=== PATIENT | male | born 1945 | race Caucasian/White ===

== ENCOUNTER 2017-05-23 15:24 | Inpatient (IN) | payer MEDICARE ==
--- NOTE | 2017-05-23 16:02 | ED PDOC ---
HPI: Back Time Seen by Provider: 05/23/17 15:48 Chief Complaint (Nursing): Back Pain Chief Complaint (Provider): Back Pain History Per: Patient History/Exam Limitations: no limitations Onset/Duration Of Symptoms: Days (x3) Current Symptoms Are (Timing): Still Present Additional Complaint(s): Peng is a 71 y/o male with a past medical history of diabetes, who presents to the ED complaining of bilateral low back pain, radiating to both legs since . No fever, urinary symptoms, weakness or paresthesias. Denies associated trauma or heavy lifting. PMD: Tatiana Cabello Past Medical History Reviewed: Historical Data, Nursing Documentation, Vital Signs Vital Signs: Last Vital Signs Temp 97.7 F 05/23/17 15:28 Pulse 90 05/23/17 15:28 Resp 18 05/23/17 15:28 BP 101/50 L 05/23/17 15:28 Pulse Ox 98 05/23/17 15:28 - Medical History PMH: Arthritis, Diabetes, HTN, Hypercholesterolemia Denies: Chronic Kidney Disease - Surgical History Surgical History: No Surg Hx - Family History Family History: States: Unknown Family Hx - Social History Current smoker - smoking cessation education provided: No Alcohol: None Drugs: Denies - Immunization History Hx Tetanus Toxoid Vaccination: No Hx Influenza Vaccination: Yes Hx Pneumococcal Vaccination: No - Home Medications Home Medications: Ambulatory Orders Medication Instructions Recorded Lisinopril [Zestril] 20 mg PO DAILY 05/23/17 Metformin HCl [Metformin HCl ER] 1,000 mg PO BID 05/23/17 - Allergies Allergies/Adverse Reactions: Allergies Allergy/AdvReac Type Severity Reaction Status Date / Time No Known Allergies Allergy Verified 09/22/15 19:52 Review of Systems ROS Statement: Except As Marked, All Systems Reviewed And Found Negative Constitutional: Negative for: Fever Genitourinary Male: Negative for: Dysuria, Frequency, Incontinence Musculoskeletal: Positive for: Back Pain (bilateral lower, radiating to both legs) Neurological: Negative for: Weakness, Other (paresthesias) Physical Exam - Reviewed Nursing Documentation Reviewed: Yes Vital Signs Reviewed: Yes - Physical Exam Appears: Positive for: Non-toxic, No Acute Distress Head Exam: Positive for: ATRAUMATIC, NORMAL INSPECTION, NORMOCEPHALIC Skin: Positive for: Normal Color, Warm, Dry Eye Exam: Positive for: EOMI, Normal appearance, PERRL Neck: Positive for: Normal, Painless ROM, Supple Cardiovascular/Chest: Positive for: Regular Rate, Rhythm. Negative for: Murmur Respiratory: Positive for: Normal Breath Sounds. Negative for: Respiratory Distress Back: Positive for: Muscle Spasm (bilateral paralumbar spasm and tenderness). Negative for: Vertebral Tenderness, Other (deformity) Extremity: Positive for: Normal ROM. Negative for: Calf Tenderness, Deformity Neurologic/Psych: Positive for: Alert (awake), Oriented. Negative for: Motor/ Sensory Deficits (of lower extremities) - Laboratory Results Result Diagrams: 05/23/17 17:21 - ECG O2 Sat by Pulse Oximetry: 98 (RA) Pulse Ox Interpretation: Normal Medical Decision Making Medical Decision Making: Time: 15:53 Initial Plan: --POC blood glucose --Flexeril 10 mg PO --Toradol 30 mg IM --X-Ray LS Spine AP/LAT --Pending reevaluation and disposition Time: 16:24 X-RAY LS SPINE: FINDINGS: BONES: Mild scoliosis without appreciable degenerative for secondary changes. No listhesis. No fracture. DISC SPACES: Unremarkable. OTHER FINDINGS: Calcified nonaneurysmal abdominal aorta. Gallstones identified. IMPRESSION: No acute findings related to/accounting for the clinical presentation. Scribe Attestation: Documented by Loretta Joseph, acting as a scribe for Zak Marroquin MD Provider Scribe Attestation: All medical record entries made by the Scribe were at my direction and personally dictated by me. I have reviewed the chart and agree that the record accurately reflects my personal performance of the history, physical exam, medical decision making, and the department course for this patient. I have also personally directed, reviewed, and agree with the discharge instructions and disposition. Disposition - Clinical Impression Clinical Impression: Back pain, Hypoglycemia, Anemia - Patient ED Disposition Is Patient to be Admitted: Yes - Disposition Disposition Time: 17:37 Condition: FAIR Forms: [facility] (Greek) - Pt Status Changed To: Hospital Disposition Of: Observation - POA Present On Arrival: None
--- NOTE | 2017-05-23 16:25 | RAD ---
PROCEDURE: Radiographs of the Lumbar Spine. HISTORY: trauma r/o fx COMPARISON: No prior. FINDINGS: BONES: Mild scoliosis without appreciable degenerative for secondary changes. No listhesis. No fracture. DISC SPACES: Unremarkable. OTHER FINDINGS: Calcified nonaneurysmal abdominal aorta. Gallstones identified. IMPRESSION: No acute findings related to/accounting for the clinical presentation.
[2017-05-23] MEDS ORDERED: Dextrose 50% SYRINGE Inj (50 ml) IVP ONE ×2 (17:12→18:02)
[2017-05-23 17:29] LABS: BASO % 0.3 % (0.0-2.0); EOS % 0.2 % (0.0-4.0); HEMATOCRIT 25.3 % (35.0-51.0); LYMPH # 3.7 K/uL (1.0-4.3); LYMPH % 32.3 % (20.0-40.0); MEAN CELL VOLUME 99.9 fl (80.0-94.0); MEAN CORPUSCULAR HEMOGLOBIN 32.8 pg (27.0-31.0); MEAN CORPUSCULAR HGB CONC 32.8 g/dL (33.0-37.0); MEAN PLATELET VOLUME 11.6 fl (7.2-11.7); MONO # 0.9 K/uL (0.0-0.8); MONO % 7.4 % (0.0-10.0); NEUT # 6.9 K/uL (1.8-7.0); NEUT % 59.8 % (50.0-75.0); RED CELL DISTRIBUTION WIDTH 13.4 % (11.5-14.5); WHITE BLOOD COUNT 11.6 K/uL (4.8-10.8)
[2017-05-23 17:39] LABS: ALB/GLOB RATIO 1.3 (1.0-2.1); BILIRUBIN,TOTAL 0.5 mg/dl (0.2-1.3); CALCIUM 8.9 mg/dL (8.4-10.2); TOTAL PROTEIN 6.9 G/DL (6.3-8.2)
[2017-05-23] MEDS ORDERED: Insulin Regular 100 units/ml IV STA (18:01)
[2017-05-23 18:02] LABS: POTASSIUM 7.6 MMOL/L (3.6-5.0)
[2017-05-23] MEDS ORDERED: Albuterol 0.083% Inhal Sol (2.5 mg/3 mL) UD INH STA (18:02)
[2017-05-23] MEDS ORDERED: Sodium Bicarbonate 7.5% (0.9 MEQ/ML) 50ML INJ IV ONE ×2 (18:02→18:16)
[2017-05-23] MEDS ORDERED: Sod Polystyrene Sulf 15 gm/60 ml Oral Susp PO ONE (18:03)
[2017-05-23] MEDS ORDERED: Calcium Gluconate 4.65 mEq/10 ml Inj IV ONE (18:17)
[2017-05-23] MEDS ORDERED: WATER IV SCH (18:21)
[2017-05-23] MEDS ORDERED: DEXTROSE 5% IV SCH (18:21)
[2017-05-23] MEDS ORDERED: SODIUM BICARBONATE IV SCH (18:21)
[2017-05-23 18:33] LABS: CALCIUM 8.7 mg/dL (8.4-10.2)
--- NOTE | 2017-05-23 18:41 | CP.PCM.HP ---
History of Present Illness - History of Present Illness History of Present Illness: 71 yo male with history of DM2, HTN and Gout came in because of back pain and leg pain since 3 days ago accompanied with generalized weakness and uncontrollable tremors. Denied SOB, chest pain, fever or chills. Present on Admission - Present on Admission Any Indicators Present on Admission: No History of DVT/PE: No History of Uncontrolled Diabetes: No Urinary Catheter: No Decubitus Ulcer Present: No Review of Systems - Review of Systems All systems: reviewed and no additional remarkable complaints except (aside from those mentioned above, 12 point system review were negative by me) Past Patient History - Infectious Disease Hx of Infectious Diseases: None - Tetanus Immunizations Tetanus Immunization: Unknown - Past Medical History & Family History Past Medical History?: Yes Pertinent Family History: DM and HTN runs in the family - Past Social History Smoking Status: Never Smoked Alcohol: None (quit heavy drinking of alcohol 5 yrs ago) Drugs: Denies Home Situation {Lives}: With Family - CARDIAC Hx Hypercholesterolemia: Yes Hx Hypertension: Yes - PULMONARY Hx Respiratory Disorders: No - NEUROLOGICAL Hx Neurological Disorder: No - HEENT Hx HEENT Problems: Yes Hx Cataracts: Yes - RENAL Hx Chronic Kidney Disease: No - ENDOCRINE/METABOLIC Hx Diabetes Mellitus Type 2: Yes - HEMATOLOGICAL/ONCOLOGICAL Hx Blood Disorders: No Hx Blood Transfusions: No - INTEGUMENTARY Hx Dermatological Problems: No - MUSCULOSKELETAL/RHEUMATOLOGICAL Hx Gout: Yes - GASTROINTESTINAL Hx Gastrointestinal Disorders: No - GENITOURINARY/GYNECOLOGICAL Hx Genitourinary Disorders: No - PSYCHIATRIC Hx Psychophysiologic Disorder: No Hx Substance Use: No - SURGICAL HISTORY Hx Surgeries: No - ANESTHESIA Hx Anesthesia: No Meds Allergies/Adverse Reactions: Allergies Allergy/AdvReac Type Severity Reaction Status Date / Time No Known Allergies Allergy Verified 09/22/15 19:52 Physical Exam - Constitutional Appears: Other (tremelous) - Head Exam Head Exam: ATRAUMATIC - Eye Exam Eye Exam: absent: Scleral icterus - ENT Exam ENT Exam: Mucous Membranes Moist - Neck Exam Neck exam: Negative for: Meningismus - Respiratory Exam Respiratory Exam: absent: Rhonchi, Wheezes, Respiratory Distress - Cardiovascular Exam Cardiovascular Exam: REGULAR RHYTHM, +S1, +S2 - GI/Abdominal Exam GI & Abdominal Exam: Soft. absent: Tenderness - Rectal Exam Rectal Exam: Deferred - Extremities Exam Extremities exam: Negative for: pedal edema - Back Exam Back exam: absent: tenderness - Neurological Exam Neurological exam: Alert, Oriented x3 - Psychiatric Exam Psychiatric exam: Normal Affect - Skin Skin Exam: Dry, Intact Results - Vital Signs Recent Vital Signs: Last Vital Signs Temp 97.7 F 05/23/17 15:28 Pulse 90 05/23/17 15:28 Resp 18 05/23/17 15:28 BP 101/50 L 05/23/17 15:28 Pulse Ox 98 05/23/17 17:38 - Labs Result Diagrams: 05/23/17 17:21 05/23/17 17:21 Assessment & Plan (1) Acute renal failure (ARF) Status: Acute Comment: admit to ICU. renal consult with Dr Schwartz. manage hyperkalemia with 2 amps of NaHCO3, 1 amp of D50W, 5 units of Regular Insulin IV , Kayaxelate 30gm PO. 1 liter of D5W with 3 amps of NaHCO3 to run at 80cc/hr. insert patel catheter. sonogram of kidney and bladder (2) Hypoglycemia Status: Acute Comment: secondary to acute renal failure. DC Metformin. D50W 1 amp IV prn (3) Anemia Status: Acute Comment: anemia secondary to renal failure (4) DM (diabetes mellitus) Status: Chronic Comment: angy ANGELO. MICHAEL Metformin. endocrinology consult with Dr Mccollum. HgA1C, CMP in am (5) HTN (hypertension) Status: Chronic Comment: BP stable. continue monitoring BP (6) Gout Status: Acute Comment: check uric acid level in am
[2017-05-23] MEDS ORDERED: CALCIUM GLUCONATE IV ONE (18:45)
[2017-05-23] MEDS ORDERED: WATER IV ONE (18:45)
[2017-05-23] MEDS ORDERED: DEXTROSE 5% IV ONE (18:45)
[2017-05-23 18:47] LABS: POTASSIUM 7.7 MMOL/L (3.6-5.0)
[2017-05-23] MEDS ORDERED: Povidone Iodine Topical 10% Sol ONE (18:57)
[2017-05-23] MEDS ORDERED: Heparin Sodium (Porcine) 1,000 U/ML 30ML IV ONE (18:58)
[2017-05-23] MEDS ORDERED: Albuterol 0.083% Inhal Sol (2.5 mg/3 mL) UD ONE (19:11)
--- NOTE | 2017-05-23 19:34 | CP.PCM.CON ---
History of Present Illness - History of Present Illness History of Present Illness: pt is seen and examined, full consult is dictated #[id number] 1. renal failure, MADONNA on ckd 2. severe heyperkalemia 3. severe met. acidosis 4. uremia 5.Hypoglycemia s/p nahco3, albuterol, iv calcium d/w pt's familyat bed side agreed for hemodialysis, d/w dr Shanta Fishman and dr. molina Past Patient History - Infectious Disease Hx of Infectious Diseases: None - Tetanus Immunizations Tetanus Immunization: Unknown - Past Medical History & Family History Past Medical History?: Yes - Past Social History Smoking Status: Never Smoked Alcohol: None (quit heavy drinking of alcohol 5 yrs ago) Drugs: Denies Home Situation {Lives}: With Family - CARDIAC Hx Hypercholesterolemia: Yes Hx Hypertension: Yes - PULMONARY Hx Respiratory Disorders: No - NEUROLOGICAL Hx Neurological Disorder: No - HEENT Hx HEENT Problems: Yes Hx Cataracts: Yes - RENAL Hx Chronic Kidney Disease: No - ENDOCRINE/METABOLIC Hx Diabetes Mellitus Type 2: Yes - HEMATOLOGICAL/ONCOLOGICAL Hx Blood Disorders: No Hx Blood Transfusions: No - INTEGUMENTARY Hx Dermatological Problems: No - MUSCULOSKELETAL/RHEUMATOLOGICAL Hx Gout: Yes - GASTROINTESTINAL Hx Gastrointestinal Disorders: No - GENITOURINARY/GYNECOLOGICAL Hx Genitourinary Disorders: No - PSYCHIATRIC Hx Psychophysiologic Disorder: No Hx Substance Use: No - SURGICAL HISTORY Hx Surgeries: No - ANESTHESIA Hx Anesthesia: No Meds Allergies/Adverse Reactions: Allergies Allergy/AdvReac Type Severity Reaction Status Date / Time No Known Allergies Allergy Verified 09/22/15 19:52 - Medications Medications: Current Medications Heparin Sodium (Porcine) (Heparin) 5,000 units SC Q12 ROSS PRN Reason: Protocol Sodium Bicarbonate 133.8 meq/ (Dextrose) 1,133.8 mls @ 80 mls/hr IV .[id number] [facility] Stop: 05/24/17 08:31 Last Admin: 05/23/17 19:14 Dose: 80 mls/hr Calcium Gluconate 4.6 meq/ (Dextrose) 109.8924 mls @ 109.892 mls/hr IV ONCE ONE Stop: 05/23/17 19:44 Last Admin: 05/23/17 19:13 Dose: 109.892 mls/hr Results - Vital Signs Recent Vital Signs: Last Vital Signs Temp 97.7 F 05/23/17 15:28 Pulse 90 05/23/17 15:28 Resp 18 05/23/17 15:28 BP 101/50 L 05/23/17 15:28 Pulse Ox 98 05/23/17 17:38 - Labs Result Diagrams: 05/23/17 17:21 05/23/17 18:15 Labs: Laboratory Results - last 24 hr 05/23/17 18:15 Sodium 140 Potassium 7.7 H* Chloride 109 H Carbon Dioxide 9 L* Anion Gap 30 H BUN 155 H* Creatinine 11.6 H* Est GFR ( Amer) 5 Est GFR (Non-Af Amer) 4 Random Glucose 89 Calcium 8.7
--- NOTE | 2017-05-23 20:44 | PCM.PROC ---
Procedures Attestation:: I certify that I have explained the specified Operation(s) or Procedure(s), risks, benefits and reasonable alternatives to the Patient and/or other person responsible. The opportunity was given to ask questions and all questions answered - Central Line Placement Right Femoral Hemodialysis Access Aseptic technique was employed throughout the procedure: Hand Hygiene done prior to procedure, Full sterile barriers (mask, hair cover, sterile gown, sterile gloves) CVP Time Out Performed: Yes Pt. Placed on Pulse Ox Monitor: Yes Central Line Prep: Povidone-Iodine 1% Local Anesthesia Used: Lidocaine 1% Amount of Anesthesia Used (mls): 5 Ultrasound Used for Placement: Yes Central Line Lumen Inserted: double Central Line Length: 16 cm Post Procedure: Sutured in Place, Good Blood Return, All Ports Aspirated, Flushed, Capped, Sterile Dressing Applied Secured by: Suture Post procedure dressing: Gauze, Clear vapor permeable Post Procedure X-Ray: No Patient Tolerated Procedure: Well, No Complications Immediate Complications: None
[2017-05-23 21:58] LABS: PHOSPHOROUS 7.6 mg/dl (2.5-4.5); URIC ACID 16.9 mg/Dl (3.5-8.5)
[2017-05-23 23:03] LABS: CALCIUM 8.9 mg/dL (8.4-10.2)
[2017-05-23 23:08] LABS: POTASSIUM 6.9 MMOL/L (3.6-5.0)
[2017-05-24] MEDS ORDERED: Pneumococcal 23-Valent Vaccine IM ONE (06:00)
[2017-05-24 06:55] LABS: RBC URINE 9 /hpf (0-3); URINE BACTERIA RARE (<OCC); URINE BILIRUBIN NEGATIVE (NEGATIVE); URINE BLOOD MODERATE (NEGATIVE); URINE COLOR YELLOW (YELLOW); URINE GLUCOSE (UA) 50 mg/dL (Normal); URINE KETONE NEGATIVE (NEGATIVE); URINE LEUKOCYTE ESTERASE LARGE Leu/uL (Negative); URINE PROTEIN >=500 mg/dL (NEGATIVE); URINE UROBILINOGEN 0.2-1.0 mg/dL (0.2-1.0); WBC URINE 11 /hpf (0-5)
--- NOTE | 2017-05-24 07:08 | CON ---
DATE: The patient is located in ICU room 426. HISTORY OF PRESENT ILLNESS: Mr. Malvin Stallworth is a 71 years old very pleasant male with past medical history significant for diabetes for about 10 years, hypertension for 15 years, hyperlipidemia followed by Dr. Cabello who was presented to the emergency room with the chief complaint of lower back pain and shaking for the last 3 or 4 days and also associated with nausea and vomiting x6 to 7 times since and Thursday for the last 2 days. Denies any dysuria or frequency. The patient claims he is able to void. The patient is complaining of severe tremors for the last few days. Denies any abdominal pain. Denies any headache or dizziness. Denies any chest pain or palpitations. Denies any shortness of breath. The patient was also found to be hypoglycemic in the emergency room status post D50. PAST MEDICAL HISTORY: Significant for hypertension for 15 years, diabetes for 10 years, hyperlipidemia. PAST SURGICAL HISTORY: He denies any surgeries. ALLERGIES: No known drug allergies. SOCIAL HISTORY: Denies any smoking. Denies any alcohol. Denies any drug abuse. PERSONAL HISTORY: He is . He has 3 children. HOME MEDICATIONS: Include Lisinopril 20 mg p.o. daily and metformin 1000 mg p.o. b.i.d. REVIEW OF SYSTEMS: Significant for nausea, vomiting, tremors, shaking for the last 2 days and lower back pain for the last 2 to 3 days. All other review of systems are reviewed and are negative. PHYSICAL EXAMINATION: GENERAL: Mr. Malvin Stallworth is a 71 years old, very pleasant, elderly, male, moderately build, moderately nourished, not in acute distress. VITAL SIGNS: As follows; blood pressure 114/93, pulse 88, respirations 16, temperature 98, saturation 99%. Height 5 feet 6 inches and weight is 170 pounds. HEENT: Pupils normal and reactive to light and accommodation. Conjunctiva pink. Sclera anicteric. Tongue is moist. Trachea is midline. LUNGS: Symmetric on both sides. Bilateral breath sounds present. Clear on auscultation. CARDIOVASCULAR: [place] at the fifth intercostal space, midclavicular line. S1 and S2 audible. No murmur or gallop. ABDOMEN: Slightly protuberant. Soft and tympanic. No guarding. No rigidity. No hepatosplenomegaly. CENTRAL NERVOUS SYSTEM: The patient is alert, awake, and oriented x3. Nonfocal neuro examination. Cranial nerves II through XII grossly intact. Sensory and motor system is within normal limits. EXTREMITIES: No cyanosis, no clubbing, no edema. LABORATORY DATA: Include as follows; as of 05/23/2017, WBC 11.6, hemoglobin 8.3, hematocrit is 25.3, [id number]. Sodium 140, potassium 7.7, not hemolyzed, chloride 109, CO2 of 9, BUN 155, creatinine 11.6, glucose 89, lactic acid 4.3, calcium 8.7, total bili 0.5, AST 64, ALT 63, alkaline phosphatase is 97. Total protein 6.9. Albumin is 3.9. His anion gap is about 22 and lactic acid level is 4.3. Other reports; x-ray of the lumbosacral spine, no acute findings related to or accounting for the clinical presentation. Gallstones identified. Mild scoliosis without appreciable degenerative per secondary changes. No listhesis. No fracture. ASSESSMENT: In summary, Mr. Malvin Stallworth is a 71 years old elderly male with history of hypertension, diabetes with a baseline creatinine about 1.2 in 07/2015, was admitted through the emergency room with lower back pain and nausea, vomiting and also tremors now for the last 2 to 3 days and the patient was found to have a severe anemia, severe hyperkalemia, metabolic acidosis, and high BUN and creatinine. 1. Renal failure, most likely [id number] kidney disease, cannot rule out end-stage renal disease. 2. High anion gap metabolic acidosis secondary to renal failure. 3. Metabolic acidosis. 4. Severe hyperkalemia, most likely secondary to renal failure, secondary to lactic acidosis and lisinopril. PLAN: Case discussed with the patient%s family at bedside, , and patient through the service dismantler, Marcos, identification number [id number], and patient agreed for the dialysis and he requested his to sign the consent as he was shaking, unable to hold the pen. We will admit the patient to the ICU and we will schedule for hemodialysis after the Graham catheter placement by Surgery who is at bedside and status post albuterol inhaler, status post IV calcium gluconate 1 amp and also status post IV sodium bicarbonate 2 amps and also to continue IV bicarb drip until hemodialysis is completed. Also, check urine electrolytes and urine analysis and also urine culture, ultrasound of the kidneys and the bladder and also hepatitis B and C serology, phosphorous and PTH intact level and urine protein electrophoresis and serum protein electrophoresis. We will follow with you. Thank you for allowing me to participate in your patient's care. Naveen Schwartz MD
--- NOTE | 2017-05-24 07:25 | CP.PCM.CON ---
History of Present Illness - History of Present Illness History of Present Illness: 71 YOM with h/o CKD-4 came to ER with c/o genereliazed aches and join pain, no sob, no CP. Symptoms has been slowly getting worst over last week or so. Has poor appetite, nausea at times but no vomiting or diarrhea. He was evaluated in ER and found to have grossly abnormal labs with anemia, hyperkalemia, hyperurecemia, sever metabolic acidosis. Underwent and emergency HD finished this morning and this morning labs, post HD are pending. Pt is now awake and alert and denies any pain, sob now, BP is stable and he is afebrile , Review of Systems - Review of Systems Systems not reviewed;Unavailable: Language Barrier - Constitutional Constitutional: Anorexia, Malaise - EENT Eyes: As Per HPI Nose/Mouth/Throat: As Per HPI - Cardiovascular Cardiovascular: As Per HPI - Respiratory Respiratory: As Per HPI - Gastrointestinal Gastrointestinal: Nausea - Genitourinary Genitourinary: As Per HPI Past Patient History - Infectious Disease Hx of Infectious Diseases: None - Tetanus Immunizations Tetanus Immunization: Unknown - Past Medical History & Family History Past Medical History?: Yes - Past Social History Smoking Status: Never Smoked - CARDIAC Hx Hypercholesterolemia: Yes Hx Hypertension: Yes - PULMONARY Hx Respiratory Disorders: No - NEUROLOGICAL Hx Neurological Disorder: No - HEENT Hx Cataracts: Yes - RENAL Hx Chronic Kidney Disease: No - ENDOCRINE/METABOLIC Hx Diabetes Mellitus Type 1: Yes - HEMATOLOGICAL/ONCOLOGICAL Hx Blood Disorders: No - INTEGUMENTARY Hx Dermatological Problems: No - MUSCULOSKELETAL/RHEUMATOLOGICAL Hx Arthritis: Yes Hx Falls: No Hx Gout: Yes - GASTROINTESTINAL Hx Gastrointestinal Disorders: No - GENITOURINARY/GYNECOLOGICAL Hx Genitourinary Disorders: No - PSYCHIATRIC Hx Substance Use: No - SURGICAL HISTORY Hx Surgeries: No - ANESTHESIA Hx Anesthesia: No Meds Allergies/Adverse Reactions: Allergies Allergy/AdvReac Type Severity Reaction Status Date / Time No Known Allergies Allergy Verified 09/22/15 19:52 - Medications Medications: Current Medications Heparin Sodium (Porcine) (Heparin) 5,000 units SC Q12 ROSS PRN Reason: Protocol Last Admin: 05/23/17 22:21 Dose: 5,000 units Sodium Bicarbonate 133.8 meq/ (Dextrose) 1,133.8 mls @ 80 mls/hr IV .[id number] [facility] Stop: 05/24/17 08:31 Last Admin: 05/23/17 19:14 Dose: 80 mls/hr Dextrose (Dextrose 10% In Water) 500 mls @ 100 mls/hr IV .Q5H ROSS Stop: 05/24/17 20:30 Last Admin: 05/24/17 03:00 Dose: Not Given Physical Exam - Head Exam Head Exam: ATRAUMATIC - Eye Exam Pupil Exam: NORMAL ACCOMODATION, PERRL - ENT Exam ENT Exam: Mucous Membranes Moist - Neck Exam Neck exam: Positive for: Full Rom - Respiratory Exam Respiratory Exam: NORMAL BREATHING PATTERN - Cardiovascular Exam Cardiovascular Exam: REGULAR RHYTHM - GI/Abdominal Exam GI & Abdominal Exam: Soft - Rectal Exam Rectal Exam: Deferred Results - Vital Signs Recent Vital Signs: Last Vital Signs Temp 98.1 F 05/24/17 06:00 Pulse 91 H 05/24/17 06:00 Resp 13 05/24/17 06:00 BP 124/62 05/24/17 06:00 Pulse Ox 100 05/24/17 06:00 - Labs Result Diagrams: 05/23/17 17:21 05/23/17 21:20 Labs: Laboratory Results - last 24 hr 05/23/17 05/23/17 05/23/17 18:15 18:50 20:04 Sodium 140 Potassium 7.7 H* Chloride 109 H Carbon Dioxide 9 L* Anion Gap 30 H BUN 155 H* Creatinine 11.6 H* Est GFR ( Amer) 5 Est GFR (Non-Af Amer) 4 POC Glucose (mg/dL) 56 L Random Glucose 89 Lactic Acid 4.3 H* Uric Acid Calcium 8.7 Phosphorus Urine Color Urine Clarity Urine pH Ur Specific [place] Urine Protein Urine Glucose (UA) Urine Ketones Urine Blood Urine Nitrate Urine Bilirubin Urine Urobilinogen Ur Leukocyte Esterase Urine RBC (Auto) Urine Microscopic WBC Ur Squamous Epith Cells Urine Bacteria 05/23/17 05/23/17 05/23/17 21:20 21:20 23:03 Sodium 143 Potassium 6.9 H* Chloride 110 H Carbon Dioxide 12 L Anion Gap 28 H BUN 160 H* Creatinine 11.5 H* Est GFR ( Amer) 5 Est GFR (Non-Af Amer) 4 POC Glucose (mg/dL) 66 Random Glucose 33 L* D Lactic Acid Uric Acid 16.9 H Calcium 8.9 Phosphorus 7.6 H Urine Color Urine Clarity Urine pH Ur Specific [place] Urine Protein Urine Glucose (UA) Urine Ketones Urine Blood Urine Nitrate Urine Bilirubin Urine Urobilinogen Ur Leukocyte Esterase Urine RBC (Auto) Urine Microscopic WBC Ur Squamous Epith Cells Urine Bacteria 05/24/17 05/24/17 05/24/17 00:23 05:10 06:10 Sodium Potassium Chloride Carbon Dioxide Anion Gap BUN Creatinine Est GFR ( Amer) Est GFR (Non-Af Amer) POC Glucose (mg/dL) 134 H 31 L* 91 Random Glucose Lactic Acid Uric Acid Calcium Phosphorus Urine Color Urine Clarity Urine pH Ur Specific [place] Urine Protein Urine Glucose (UA) Urine Ketones Urine Blood Urine Nitrate Urine Bilirubin Urine Urobilinogen Ur Leukocyte Esterase Urine RBC (Auto) Urine Microscopic WBC Ur Squamous Epith Cells Urine Bacteria 05/24/17 06:30 Sodium Potassium Chloride Carbon Dioxide Anion Gap BUN Creatinine Est GFR ( Amer) Est GFR (Non-Af Amer) POC Glucose (mg/dL) Random Glucose Lactic Acid Uric Acid Calcium Phosphorus Urine Color Yellow Urine Clarity Cloudy Urine pH 6.0 Ur Specific [place] 1.013 Urine Protein >=500 Urine Glucose (UA) 50 Urine Ketones Negative Urine Blood Moderate Urine Nitrate Negative Urine Bilirubin Negative Urine Urobilinogen 0.2-1.0 Ur Leukocyte Esterase Large Urine RBC (Auto) 9 H Urine Microscopic WBC 11 H Ur Squamous Epith Cells 1 Urine Bacteria Rare Assessment & Plan - Assessment and Plan (Free Text) Assessment: Assessment & Plan (1) Acute renal failure (ARF) Status: Acute With h/o CKD-4, progression of disease , uremia, pre-renal exacerbation. Comment: admitted to ICU. renal consult with Dr Schwartz. received his first HD early this morning and will re-evaluate post HD labs and renal to decided about his next HD and HD schedule. Will continue IVF with bicarb for the time being. Sonogram of kidney and bladder (2) Hypoglycemia Status: Acute Comment: secondary to acute renal failure. DC Metformin. D50W 1 amp IV prn (3) Anemia Status: Acute Comment: anemia secondary to renal failure , will check iron profile and will give is low. Will receive procirt. (4) DM (diabetes mellitus) Status: Chronic Comment: accuchek ACHS. DC Metformin. endocrinology consult with Dr Mccollum. HgA1C, CMP in am (5) HTN (hypertension) Status: Chronic Comment: BP stable. continue monitoring BP (6) Hyperurecemia Status: Chronic Comment: Will start allopurinol 100 mg po daily.
[2017-05-24 07:52] LABS: BASO % 0.2 % (0.0-2.0); EOS % 0.8 % (0.0-4.0); HEMATOCRIT 20.6 % (35.0-51.0); LYMPH # 2.1 K/uL (1.0-4.3); LYMPH % 32.4 % (20.0-40.0); MEAN CELL VOLUME 96.3 fl (80.0-94.0); MEAN CORPUSCULAR HEMOGLOBIN 33.2 pg (27.0-31.0); MEAN CORPUSCULAR HGB CONC 34.4 g/dL (33.0-37.0); MEAN PLATELET VOLUME 11.9 fl (7.2-11.7); MONO # 0.6 K/uL (0.0-0.8); MONO % 9.7 % (0.0-10.0); NEUT # 3.6 K/uL (1.8-7.0); NEUT % 56.9 % (50.0-75.0); NRBC % 0.1 % (0.0-0.0); RED CELL DISTRIBUTION WIDTH 13.4 % (11.5-14.5); WHITE BLOOD COUNT 6.4 K/uL (4.8-10.8)
[2017-05-24 08:48] LABS: BILIRUBIN,TOTAL 0.5 mg/dl (0.2-1.3); CALCIUM 7.7 mg/dL (8.4-10.2); POTASSIUM 4.2 MMOL/L (3.6-5.0); TOTAL PROTEIN 5.7 G/DL (6.3-8.2); URIC ACID 8.1 mg/Dl (3.5-8.5)
[2017-05-24 09:26] LABS: ALB/GLOB RATIO 1.2 (1.0-2.1)
--- NOTE | 2017-05-24 09:28 | RAD ---
HISTORY: renal failure COMPARISON: No prior. TECHNIQUE: Chest PA and lateral FINDINGS: LUNGS: No active pulmonary disease. PLEURA: No significant pleural effusion identified. No pneumothorax apparent. CARDIOVASCULAR: Cardiomegaly. No evidence of acute, significant cardiovascular disease. OSSEOUS STRUCTURES: No significant abnormalities. VISUALIZED UPPER ABDOMEN: Normal. OTHER FINDINGS: None. IMPRESSION: No active disease.
--- NOTE | 2017-05-24 09:37 | CP.PCM.PN ---
Subjective - Date & Time of Evaluation Date of Evaluation: 05/24/17 Time of Evaluation: 08:30 - Subjective Subjective: Patient seen and examined bedside. Feeling better.s/p HD yesterday . Hemodynamically stable , afebrile BP 124/62 HR 91 No acute issues overnight Denies any CP, SOB, abdominal pain , nausea or vomiting. Anuric WBC 6.4 Hgb 7.1 Plt dropped from 137K-- 58 K K 4.2 HCO3 26 post HD BUN/ Cr 79/6.9 Objective - Vital Signs/Intake and Output Vital Signs (last 24 hours): Temp Pulse Resp BP Pulse Ox 98.1 F 91 H 13 124/62 100 05/24/17 06:00 05/24/17 06:00 05/24/17 06:00 05/24/17 06:00 05/24/17 06:00 Intake and Output: 05/24/17 05/24/17 06:59 18:59 Intake Total 1340 Output Total 25 Balance 1315 - Medications Medications: Current Medications Allopurinol (Zyloprim) 100 mg PO DAILY [facility] Heparin Sodium (Porcine) (Heparin) 5,000 units SC Q12 ROSS PRN Reason: Protocol Last Admin: 05/23/17 22:21 Dose: 5,000 units Dextrose (Dextrose 10% In Water) 500 mls @ 100 mls/hr IV .Q5H [facility] Stop: 05/24/17 20:30 Last Admin: 05/24/17 03:00 Dose: Not Given Pantoprazole Sodium (Protonix Ec Tab) 40 mg PO DAILY ROSS - Labs Labs: 05/24/17 07:30 05/24/17 08:30 - Constitutional Appears: Well, Non-toxic, No Acute Distress - Head Exam Head Exam: ATRAUMATIC, NORMAL INSPECTION, NORMOCEPHALIC - Eye Exam Eye Exam: EOMI, Normal appearance, PERRL Pupil Exam: NORMAL ACCOMODATION - ENT Exam ENT Exam: Mucous Membranes Moist, Normal Exam - Neck Exam Neck Exam: Full ROM, Normal Inspection - Respiratory Exam Respiratory Exam: Clear to Ausculation Bilateral. absent: Rales, Rhonchi, Wheezes - Cardiovascular Exam Cardiovascular Exam: REGULAR RHYTHM, RRR, +S1, +S2. absent: JVD - GI/Abdominal Exam GI & Abdominal Exam: Soft, Normal Bowel Sounds. absent: Distended, Guarding, Tenderness, Rebound - Rectal Exam Rectal Exam: Deferred - Extremities Exam Extremities Exam: Full ROM, Normal Capillary Refill, Normal Inspection. absent : Calf Tenderness, Pedal Edema - Back Exam Back Exam: NORMAL INSPECTION - Neurological Exam Neurological Exam: Alert, Awake, CN II-XII Intact, Oriented x3 - Psychiatric Exam Psychiatric exam: Normal Affect, Normal Mood - Skin Skin Exam: Dry, Pallor, Warm Assessment and Plan - Assessment and Plan (Free Text) Assessment: 71 yo male with history of DM2, HTN, CKD and Gout came in because of back pain and leg pain since 3 days ago accompanied with generalized weakness and uncontrollable tremors.Patient states that he fell at home coming out of shower. Denied SOB, chest pain, fever or chills. In ER found to have BUN/Cr 155/ 11.9 Hyperkalemic K 7.7 acidotic with HCO3 9 and lactica acid 4.3 Patient admitted in ICU with MADONNA on CKD, metabolic acidosis, hyperkalemia 1. Acute renal failure (ARF) on CKD Acute Patient with BUN/Cr 155/11.6 on admission and HCO3 9 and K 7.7 Admitted to ICU and nephro consulted stat HD started Treated with NaHCO3 drip and D50 insulin , kayexalate initially for acidosis and hyperkalemia Still anuric acidosis corrected with HCO3 today 26 k 4.2 Will continue with HD as per nephro recommendations 2.Metabolic acidosis As above most likely secondarry to renal failure corrected with NaHCO3 drip and HD 3. Lactic acidosis most likely secondary to metformin use in setting of CKD no signs of sepsis D/c metformin 4. Hyperkalemia secondary to renal failure Treated with D50 amp, insulin , duoneb, calcium glucontae and Kayexalate s/p HD with K 4.2 renal diet 5.DM with Hypoglycemia Hold PO meds Started on D10 NS diabetic diet continue accuchecks endo consult 6. Thrombocytopenia unclear etiology r/o HIT, TTP Platelet count dropped from 137 K -- 58 K no sign of bleeding hematology consulted patient received 1 dose 5000 unit Heparin before HD check HIT antibody 7. Anemia most likely patient has some degree of chronic anemia secondary to CKD but since Hgb is dropping from 8.3 -- 6.5 unclear if there is any acute blood loss anemia either intravascular hemylitic process or GI loss check haptoglobin, LDH, iron profile, ferritin, retic count, occult blood Hematology consulted type and cross and transfuse 2 unit PRBC as soon as anemia work up is sent 8. HTN (hypertension) Chronic controlled without meds 9. Gout stable check uric acid level 10. DVT prophylaxis SCD
[2017-05-24] MEDS: Pantoprazole 40 mg EC Tab PO SCH (10:21)
[2017-05-24 10:31] LABS: ALB/GLOB RATIO 1.2 (1.0-2.1); BILIRUBIN,TOTAL 0.5 mg/dl (0.2-1.3); TOTAL PROTEIN 5.7 G/DL (6.3-8.2)
--- NOTE | 2017-05-24 11:50 | CP.PCM.PN ---
Subjective - Date & Time of Evaluation Date of Evaluation: 05/24/17 Time of Evaluation: 11:48 - Subjective Subjective: pt is seen and examined, follow up consult is dictated #[id number] 1.thrombocytopenia 2. renal failure , MADONNA on ckd vs esrd 3.anemia 4. s/p hyperkalemia, 5. s/p met. acidosis 6. dm hematology consult to r/o dic,r/o TTP/HUS r/o heparin induced thrombocytopenia hematology consult d/c heparin vendyne boots check ldh, haptoglobin, heparin induced ab for hd in am Objective - Vital Signs/Intake and Output Vital Signs (last 24 hours): Temp Pulse Resp BP Pulse Ox 98.1 F 91 H 13 124/62 100 05/24/17 06:00 05/24/17 06:00 05/24/17 06:00 05/24/17 06:00 05/24/17 06:00 Intake and Output: 05/24/17 05/24/17 06:59 18:59 Intake Total 1340 Output Total 25 Balance 1315 - Medications Medications: Current Medications Allopurinol (Zyloprim) 100 mg PO DAILY [facility] Last Admin: 05/24/17 11:19 Dose: 100 mg Dextrose (Dextrose 10% In Water) 500 mls @ 100 mls/hr IV .Q5H [facility]S Stop: 05/24/17 20:30 Last Admin: 05/24/17 10:08 Dose: 100 mls/hr Pantoprazole Sodium (Protonix Ec Tab) 40 mg PO DAILY [facility] Last Admin: 05/24/17 10:21 Dose: 40 mg - Labs Labs: 05/24/17 07:30 05/24/17 08:30
[2017-05-24 12:32] LABS: BASO % 0.3 % (0.0-2.0); EOS % 0.7 % (0.0-4.0); LYMPH # 1.5 K/uL (1.0-4.3); LYMPH % 26.7 % (20.0-40.0); MEAN CORPUSCULAR HEMOGLOBIN 32.6 pg (27.0-31.0); MEAN PLATELET VOLUME 11.4 fl (7.2-11.7); MONO # 0.6 K/uL (0.0-0.8); MONO % 10.9 % (0.0-10.0); NEUT # 3.4 K/uL (1.8-7.0); NEUT % 61.4 % (50.0-75.0); NRBC % 0.1 % (0.0-0.0); PLATELET COUNT 65 K/uL (130-400); RED CELL DISTRIBUTION WIDTH 13.3 % (11.5-14.5); WHITE BLOOD COUNT 5.6 K/uL (4.8-10.8)
[2017-05-24] MEDS ORDERED: Epoetin Alfa 20000 UNIT/ML Inj SC ONE (13:34)
[2017-05-24 13:56] LABS: PARTIAL THROMBOPLASTIN TIME 27.6 Seconds (25.6-37.1)
[2017-05-24 14:13] LABS: IRON 29 ug/dL (49-181)
[2017-05-24] MEDS: Multivitamin Vitamin B Complex (Nephro-Vite) Tab PO SCH (14:52)
--- NOTE | 2017-05-24 15:09 | CON ---
ENDOCRINOLOGY CONSULTATION LOCATION: ICU, room 430. HISTORY OF PRESENT ILLNESS: This is a 71-year-old male with known history of type 2 diabetes and hypertension, presenting here with severe lower back pain and generalized body weakness and evaluated to acute renal failure on the background of chronic kidney disease and also with concomitant marked hypoglycemia and is now being referred for endocrine evaluation and management. PAST MEDICAL HISTORY: As mentioned above, history of type 2 diabetes currently on metformin given as 1 g b.i.d. at home. History of hypertension and dyslipidemia, history of gouty arthritis. FAMILY HISTORY: Positive for diabetes, hypertension. SOCIAL HISTORY: The patient has supportive family. No known substance use. REVIEW OF SYSTEMS: As mentioned above. Admits to generalized body weakness with easy fatigability and tiredness and suboptimal energy level. Also admits to episodic bouts of dizziness and lightheadedness, worse on the day of admission. Also admits to precordial chest pain with progressive shortness of breath initially on exertion and then at rest with paroxysmal nocturnal dyspnea. His oral intake is variable and suboptimal with persistent nausea, dyspepsia and vague upper abdominal pains. Also admits to visual blurring and lower extremity paresthesias as noted thereof. PHYSICAL EXAMINATION: GENERAL: This is an average built male, in no apparent distress. VITAL SIGNS: With a blood pressure of 130/80, pulse of 70 beats per minute regular, temperature 98, respirations 20, height is 5 feet 6 inches, weight is 169 pounds. HEENT: Head normocephalic. Eyes: Anicteric with pink conjunctivae. Funduscopy not possible at this time. Ears, nose, and throat otherwise normal. NECK: Supple. Thyroid gland is normal in size. No carotid bruits or any cervical adenopathy. CARDIOPULMONARY: Some adynamic precordium. S1 and S2 is rapid and regular. LUNGS: Clear to auscultation. ABDOMEN: Flat, soft with positive bowel sounds. EXTREMITIES: No peripheral edema. Pulses are +2 bilaterally. LABORATORY DATA: The initial BUN and creatinine was extremely elevated at 160 BUN and 11.5 creatinine with marked hyperkalemia and a potassium of 6.9 and a CO2 of 12. Chemistries today showed a BUN of 79, sodium 141, potassium 4.2, chloride 100, CO2 of 26, glucose 46 and creatinine 6.9. The latest glucose today was 91 mg/dL. ASSESSMENT: This is 71-year-old male with symptomatic hypoglycemia and associated neuroglycopenic and hyperadrenergic manifestations of the same which could be actually multifactorial because the patient also has end-stage renal disease with depletion of his glycogen and impaired renal gluconeogenesis contributing to the hypoglycemia. Moreover, he was also taking metformin prior to admission which will also precipitated severe hypoglycemic episodes as noted thereof. He also has microvascular complications of retinopathy, polyneuropathy and nephropathy with end-stage renal disease and dialysis dependence. He also has diabetic macrovascular complications of coronary artery disease and peripheral arterial disease and vasculopathy. PLAN OF MANAGEMENT: As discussed with the patient and staff. We will give him a stat dose of dextrose D10W infusion at 500 mL to run at 100 mL an hour, so stat dose to optimize his metabolic depletion of both the glycogen and gluconeogenesis. We will obtain a hemoglobin A1c to compare my prior glycemic control, and baseline thyroid function studies will be ordered. We will obtain serial chemistries and supplement accordingly as needed. We will follow with you. Roseanne Mccollum MD
[2017-05-24 15:43] LABS: BASOPHIL 1 % (0-2); NEUTROPHIL 59 % (42-75); TOTAL CELLS COUNTED 100
[2017-05-24 15:45] LABS: STOMATOCYTES SLIGHT
[2017-05-24 15:46] LABS: LARGE PLATELETS PRESENT
--- NOTE | 2017-05-24 16:48 | US ---
PROCEDURE: Ultrasound of the Kidneys HISTORY: acute renal failure COMPARISON: None available. TECHNIQUE: Sonogram of the kidneys. FINDINGS: RIGHT KIDNEY: Measures: 6.2 x 6.2 x 11.3 cm. Normal in size, contour and echogenicity. Echogenic focus 5 x 17 x 12 mm likely solitary or confluent nonobstructing renal calculus disease. Incidental finding(s): Simple cyst lower pole 1.1 x 1.7 cm LEFT KIDNEY: Measures: 6 x 6.1 x 10.4 cm. Normal in size, contour and echogenicity. Echogenic focus mid pole region 0.4 x 1.2 cm consistent with nonobstructing calculi. OTHER FINDINGS: None. IMPRESSION: Bilateral nonobstructing renal calculi. Otherwise unremarkable study.
--- NOTE | 2017-05-24 16:49 | US ---
PROCEDURE: Urinary bladder ultrasound HISTORY: acute renal failure COMPARISON: May 24, 2017. Renal ultrasound reported separately TECHNIQUE: Standard protocol for this study/examination. FINDINGS: Nondiagnostic assessment of the urinary bladder. A Abdullahi catheter is in place. Imaging was perform sequentially after clamping of the Abdullahi catheter. The urinary bladder was not distended. Incompletely visualize free fluid in the pelvis. IMPRESSION: Nondiagnostic assessment of the urinary bladder. Pelvic ascites.
--- NOTE | 2017-05-24 17:32 | PN ---
DATE: FOLLOWUP RENAL CONSULTATION LOCATION: The patient is located in ICU room 430, bed 1. REQUESTED BY: Rohan Culver MD REASON FOR FOLLOWUP: Acute renal failure, chronic kidney disease versus end-stage renal disease, thrombocytopenia, anemia. SUBJECTIVE: Mr. Coombs is a 71 years old elderly, very pleasant male with history of hypertension for 15 years, diabetes more than 10 years, who was admitted with chief complaints of feeling weak, nausea, vomiting and also tremors for the last 2 days prior to admission and also lower back pain. The patient underwent emergency hemodialysis last night and the patient is feeling better. No tremors today. Denies any nausea or vomiting today. No shortness of breath. Urine output is very minimal. The patient is anuric. No chest pain. No palpitation. No fever. No cough. PHYSICAL EXAMINATION: VITAL SIGNS: As follows; blood pressure 124/62, pulse 91, respirations 13, temperature 98.1, saturation 100%. Height 5 feet 6 inches and weight is 169 pounds. GENERAL: Mr. Malvin Stallworth is a 71 years old elderly, male, well built, well nourished, not in acute distress. HEENT: Pupils normal and reactive to light and accommodation. Conjunctiva pink. Sclera anicteric. Tongue is moist. Trachea is midline. LUNGS: Symmetric on both sides. Bilateral breath sounds present. Clear on auscultation. CARDIOVASCULAR: [place] at the fifth intercostal space, midclavicular line. S1 and S2 audible. No murmur. No gallop. ABDOMEN: Slightly protuberant. Soft and tympanic. No guarding. No hepatosplenomegaly. CENTRAL NERVOUS SYSTEM: The patient is alert, awake, and oriented x3. Nonfocal neuro examination. Cranial nerves II through XII grossly intact. Sensory and motor system is within normal limits. Power 5/5 both upper and lower extremities. EXTREMITIES: No cyanosis, no clubbing, no edema. CURRENT MEDICATIONS: Include as follows; IV fluids D10 at 100 mL per hour, Protonix 40 mg p.o. daily, allopurinol 100 mg p.o. daily. LABORATORY DATA: Include as follows, as of 05/24/2017; WBC 5.6, hemoglobin 6.5, hematocrit 19, platelets 65. Sodium 141, potassium 4.2, chloride 100, CO2 of 26, BUN 79, creatinine 6.9, glucose 96, lactic acid is 3.9, uric acid is 8.1, calcium 7.7, total bilirubin is 0.5, direct bilirubin 0.5. AST is 78, ALT is 52, and alkaline phosphatase 79 and LDH is 402. Total protein 5.7, albumin is 3.1. Chest x-ray, no active disease. ASSESSMENT: In summary, Mr. Malvin Stallworth is a 71 years old elderly male with history of hypertension, diabetes who was admitted with tremors and also nausea, vomiting, lower abdominal pain and found to have increased BUN and creatinine, hyperkalemia, metabolic acidosis, anemia now with worsening hemoglobin and also low platelets since admission, platelets decreased from 137,000 to this morning 58,000 and repeat one is 65,000. 1. Renal failure, etiology is not clear, rule out acute renal failure with chronic kidney disease versus end-stage renal disease. 2. Anemia, etiology is not clear, secondary to renal failure, rule out hemolysis. 3. Thrombocytopenia, acute, rule out TTP versus hemolytic uremic syndrome. PLAN: Check heparin antibodies. Check [id number] levels and also hematology consult and check CBC with differential count, rule out histiocytes and also check ultrasound of the kidneys for size and check urine cultures. Check PT, PTT, fibrinogen and FDP level. Rule out bleeding also. We will follow with you. Thank you for allowing me to participate in your patient's care. Naveen Schwartz MD
--- NOTE | 2017-05-24 18:05 | CP.PCM.CON ---
History of Present Illness - History of Present Illness History of Present Illness: 71 year old male with a history of DM, HTN, gout, admitted with joint pain and body aches, found to be in acute renal failure with anemia, and thrombocytopenia. The patient is unaware of abnormal blood counts in the past. He denies abnormal bleeding and bruising. Review of his peripheral smears shows normal appearing WBC, mild anisopoikilocytosis, no increase in schistocytes seen, reduced platelets and several giant platelets noted. Past medical history: DM, HTN, gout Past surgical history: Denies Family history: Denies hematologic and oncologic problems Social history: Denies tobacco, alcohol, and illicit drug use. Allergies: NKA Review of systems: All remaining review of systems including HEENT, cardiovasular, respiratory, gastrointestinal, genitourinary, musculoskeletal, dermatologic, neurologic, and psychiatric are negative unless mentioned in the HPI. Past Patient History - Infectious Disease Hx of Infectious Diseases: None - Tetanus Immunizations Tetanus Immunization: Unknown - Past Medical History & Family History Past Medical History?: Yes - Past Social History Smoking Status: Never Smoked - CARDIAC Hx Hypercholesterolemia: Yes Hx Hypertension: Yes - PULMONARY Hx Respiratory Disorders: No - NEUROLOGICAL Hx Neurological Disorder: No - HEENT Hx Cataracts: Yes - RENAL Hx Chronic Kidney Disease: No - ENDOCRINE/METABOLIC Hx Diabetes Mellitus Type 1: Yes - HEMATOLOGICAL/ONCOLOGICAL Hx Blood Disorders: No - INTEGUMENTARY Hx Dermatological Problems: No - MUSCULOSKELETAL/RHEUMATOLOGICAL Hx Arthritis: Yes Hx Falls: No Hx Gout: Yes - GASTROINTESTINAL Hx Gastrointestinal Disorders: No - GENITOURINARY/GYNECOLOGICAL Hx Genitourinary Disorders: No - PSYCHIATRIC Hx Substance Use: No - SURGICAL HISTORY Hx Surgeries: No - ANESTHESIA Hx Anesthesia: No Meds Allergies/Adverse Reactions: Allergies Allergy/AdvReac Type Severity Reaction Status Date / Time No Known Allergies Allergy Verified 09/22/15 19:52 - Medications Medications: Current Medications Allopurinol (Zyloprim) 100 mg PO DAILY [facility] Last Admin: 05/24/17 11:19 Dose: 100 mg Dextrose (Dextrose 10% In Water) 500 mls @ 100 mls/hr IV .Q5H ROSS Stop: 05/24/17 20:30 Last Admin: 05/24/17 16:53 Dose: 100 mls/hr Iron Sucrose 100 mg/ Sodium (Chloride) 105 mls @ 105 mls/hr IVPB DAILY [facility] Stop: 05/29/17 14:31 Last Admin: 05/24/17 16:52 Dose: 105 mls/hr Pantoprazole Sodium (Protonix Ec Tab) 40 mg PO DAILY [facility] Last Admin: 05/24/17 10:21 Dose: 40 mg Sevelamer Carbonate (Renvela) 1.6 gm PO TIDWM [facility] Vitamin B Complex/Vit C/Folic Acid (Nephro-Juancarlos) 1 tab PO DAILY [facility] Last Admin: 05/24/17 14:52 Dose: 1 tab Physical Exam - Head Exam Head Exam: ATRAUMATIC - Eye Exam Eye Exam: Normal appearance - ENT Exam ENT Exam: Mucous Membranes Dry - Respiratory Exam Respiratory Exam: NORMAL BREATHING PATTERN - Cardiovascular Exam Cardiovascular Exam: +S1, +S2 - GI/Abdominal Exam GI & Abdominal Exam: Normal Bowel Sounds - Extremities Exam Extremities exam: Positive for: normal inspection - Neurological Exam Neurological exam: Oriented x3 - Psychiatric Exam Psychiatric exam: Normal Affect, Normal Mood - Skin Skin Exam: Warm Results - Vital Signs Recent Vital Signs: Last Vital Signs Temp 98.4 F 05/24/17 12:00 Pulse 87 05/24/17 12:00 Resp 20 05/24/17 12:00 BP 103/59 L 05/24/17 12:00 Pulse Ox 98 05/24/17 12:00 - Labs Result Diagrams: 05/24/17 12:10 05/24/17 08:30 Labs: Laboratory Results - last 24 hr 05/23/17 05/23/17 05/23/17 18:15 18:50 20:04 WBC RBC Hgb Hct MCV MCH MCHC RDW Plt Count MPV Neut % (Auto) Lymph % (Auto) [place] % (Auto) Eos % (Auto) Baso % (Auto) Neut # Lymph # [place] # Eos # Baso # Neutrophils % (Manual) Band Neutrophils % Lymphocytes % (Manual) Monocytes % (Manual) Basophils % (Manual) Platelet Estimate Large Platelets Hypochromasia (manual) Poikilocytosis (manual Anisocytosis (manual) Ovalocytes Stomatocytes PT INR APTT Fibrinogen Sodium 140 Potassium 7.7 H* Chloride 109 H Carbon Dioxide 9 L* Anion Gap 30 H BUN 155 H* Creatinine 11.6 H* Est GFR ( Amer) 5 Est GFR (Non-Af Amer) 4 POC Glucose (mg/dL) 56 L Random Glucose 89 Lactic Acid 4.3 H* Uric Acid Calcium 8.7 Phosphorus Iron TIBC % Saturation Ferritin Total Bilirubin Direct Bilirubin AST ALT Alkaline Phosphatase Lactate Dehydrogenase Total Protein Albumin Globulin Albumin/Globulin Ratio Urine Color Urine Clarity Urine pH Ur Specific [place] Urine Protein Urine Glucose (UA) Urine Ketones Urine Blood Urine Nitrate Urine Bilirubin Urine Urobilinogen Ur Leukocyte Esterase Urine RBC (Auto) Urine Microscopic WBC Ur Squamous Epith Cells Urine Bacteria Blood Type Blood Type Confirm Antibody Screen Crossmatch BBK History Checked 05/23/17 05/23/17 05/23/17 21:20 21:20 23:03 WBC RBC Hgb Hct MCV MCH MCHC RDW Plt Count MPV Neut % (Auto) Lymph % (Auto) [place] % (Auto) Eos % (Auto) Baso % (Auto) Neut # Lymph # [place] # Eos # Baso # Neutrophils % (Manual) Band Neutrophils % Lymphocytes % (Manual) Monocytes % (Manual) Basophils % (Manual) Platelet Estimate Large Platelets Hypochromasia (manual) Poikilocytosis (manual Anisocytosis (manual) Ovalocytes Stomatocytes PT INR APTT Fibrinogen Sodium 143 Potassium 6.9 H* Chloride 110 H Carbon Dioxide 12 L Anion Gap 28 H BUN 160 H* Creatinine 11.5 H* Est GFR ( Amer) 5 Est GFR (Non-Af Amer) 4 POC Glucose (mg/dL) 66 Random Glucose 33 L* D Lactic Acid Uric Acid 16.9 H Calcium 8.9 Phosphorus 7.6 H Iron TIBC % Saturation Ferritin Total Bilirubin Direct Bilirubin AST ALT Alkaline Phosphatase Lactate Dehydrogenase Total Protein Albumin Globulin Albumin/Globulin Ratio Urine Color Urine Clarity Urine pH Ur Specific [place] Urine Protein Urine Glucose (UA) Urine Ketones Urine Blood Urine Nitrate Urine Bilirubin Urine Urobilinogen Ur Leukocyte Esterase Urine RBC (Auto) Urine Microscopic WBC Ur Squamous Epith Cells Urine Bacteria Blood Type Blood Type Confirm Antibody Screen Crossmatch BBK History Checked 05/24/17 05/24/17 05/24/17 00:23 05:10 05:30 WBC RBC Hgb Hct MCV MCH MCHC RDW Plt Count MPV Neut % (Auto) Lymph % (Auto) [place] % (Auto) Eos % (Auto) Baso % (Auto) Neut # Lymph # [place] # Eos # Baso # Neutrophils % (Manual) Band Neutrophils % Lymphocytes % (Manual) Monocytes % (Manual) Basophils % (Manual) Platelet Estimate Large Platelets Hypochromasia (manual) Poikilocytosis (manual Anisocytosis (manual) Ovalocytes Stomatocytes PT INR APTT Fibrinogen Sodium Potassium Chloride Carbon Dioxide Anion Gap BUN Creatinine Est GFR ( Amer) Est GFR (Non-Af Amer) POC Glucose (mg/dL) 134 H 31 L* Random Glucose Lactic Acid 3.9 H Uric Acid Calcium Phosphorus Iron TIBC % Saturation Ferritin Total Bilirubin Direct Bilirubin AST ALT Alkaline Phosphatase Lactate Dehydrogenase Total Protein Albumin Globulin Albumin/Globulin Ratio Urine Color Urine Clarity Urine pH Ur Specific [place] Urine Protein Urine Glucose (UA) Urine Ketones Urine Blood Urine Nitrate Urine Bilirubin Urine Urobilinogen Ur Leukocyte Esterase Urine RBC (Auto) Urine Microscopic WBC Ur Squamous Epith Cells Urine Bacteria Blood Type Blood Type Confirm Antibody Screen Crossmatch BBK History Checked 05/24/17 05/24/17 05/24/17 06:10 06:30 07:30 WBC 6.4 RBC 2.14 L Hgb 7.1 L Hct 20.6 L MCV 96.3 H D MCH 33.2 H MCHC 34.4 RDW 13.4 Plt Count 58 L D MPV 11.9 H Neut % (Auto) 56.9 Lymph % (Auto) 32.4 [place] % (Auto) 9.7 Eos % (Auto) 0.8 Baso % (Auto) 0.2 Neut # 3.6 Lymph # 2.1 [place] # 0.6 Eos # 0.0 Baso # 0.0 Neutrophils % (Manual) Band Neutrophils % Lymphocytes % (Manual) Monocytes % (Manual) Basophils % (Manual) Platelet Estimate Large Platelets Hypochromasia (manual) Poikilocytosis (manual Anisocytosis (manual) Ovalocytes Stomatocytes PT INR APTT Fibrinogen Sodium Potassium Chloride Carbon Dioxide Anion Gap BUN Creatinine Est GFR ( Amer) Est GFR (Non-Af Amer) POC Glucose (mg/dL) 91 Random Glucose Lactic Acid Uric Acid Calcium Phosphorus Iron TIBC % Saturation Ferritin Total Bilirubin Direct Bilirubin AST ALT Alkaline Phosphatase Lactate Dehydrogenase Total Protein Albumin Globulin Albumin/Globulin Ratio Urine Color Yellow Urine Clarity Cloudy Urine pH 6.0 Ur Specific [place] 1.013 Urine Protein >=500 Urine Glucose (UA) 50 Urine Ketones Negative Urine Blood Moderate Urine Nitrate Negative Urine Bilirubin Negative Urine Urobilinogen 0.2-1.0 Ur Leukocyte Esterase Large Urine RBC (Auto) 9 H Urine Microscopic WBC 11 H Ur Squamous Epith Cells 1 Urine Bacteria Rare Blood Type Blood Type Confirm Antibody Screen Crossmatch BBK History Checked 05/24/17 05/24/17 05/24/17 08:30 09:00 10:00 WBC RBC Hgb Hct MCV MCH MCHC RDW Plt Count MPV Neut % (Auto) Lymph % (Auto) [place] % (Auto) Eos % (Auto) Baso % (Auto) Neut # Lymph # [place] # Eos # Baso # Neutrophils % (Manual) Band Neutrophils % Lymphocytes % (Manual) Monocytes % (Manual) Basophils % (Manual) Platelet Estimate Large Platelets Hypochromasia (manual) Poikilocytosis (manual Anisocytosis (manual) Ovalocytes Stomatocytes PT INR APTT Fibrinogen Sodium 141 Potassium 4.2 Chloride 100 Carbon Dioxide 26 Anion Gap 19 BUN 79 H Creatinine 6.9 H Est GFR ( Amer) 10 Est GFR (Non-Af Amer) 8 POC Glucose (mg/dL) Random Glucose 46 L Lactic Acid Uric Acid 8.1 Calcium 7.7 L Phosphorus Iron TIBC % Saturation Ferritin Total Bilirubin 0.5 0.5 Direct Bilirubin 0.5 H AST 54 78 H D ALT 51 52 Alkaline Phosphatase 79 79 Lactate Dehydrogenase 402 Total Protein 5.7 L 5.7 L Albumin 3.0 L D 3.1 L Globulin 2.6 2.6 Albumin/Globulin Ratio 1.2 1.2 Urine Color Urine Clarity Urine pH Ur Specific [place] Urine Protein Urine Glucose (UA) Urine Ketones Urine Blood Urine Nitrate Urine Bilirubin Urine Urobilinogen Ur Leukocyte Esterase Urine RBC (Auto) Urine Microscopic WBC Ur Squamous Epith Cells Urine Bacteria Blood Type Blood Type Confirm Antibody Screen Crossmatch BBK History Checked 05/24/17 05/24/17 05/24/17 11:05 12:10 13:30 WBC 5.6 RBC 1.98 L Hgb 6.5 L* Hct 19.0 L MCV 96.0 H MCH 32.6 H MCHC 34.0 RDW 13.3 Plt Count 65 L MPV 11.4 Neut % (Auto) 61.4 Lymph % (Auto) 26.7 [place] % (Auto) 10.9 H Eos % (Auto) 0.7 Baso % (Auto) 0.3 Neut # 3.4 Lymph # 1.5 [place] # 0.6 Eos # 0.0 Baso # 0.0 Neutrophils % (Manual) 59 Band Neutrophils % 2 Lymphocytes % (Manual) 29 Monocytes % (Manual) 9 Basophils % (Manual) 1 Platelet Estimate Markedly decreased L Large Platelets Present Hypochromasia (manual) Marked Poikilocytosis (manual Slight Anisocytosis (manual) Slight Ovalocytes Slight Stomatocytes Slight PT 11.7 INR 1.1 APTT 27.6 Fibrinogen 306 Sodium Potassium Chloride Carbon Dioxide Anion Gap BUN Creatinine Est GFR ( Amer) Est GFR (Non-Af Amer) POC Glucose (mg/dL) 96 Random Glucose Lactic Acid Uric Acid Calcium Phosphorus Iron TIBC % Saturation Ferritin Total Bilirubin Direct Bilirubin AST ALT Alkaline Phosphatase Lactate Dehydrogenase Total Protein Albumin Globulin Albumin/Globulin Ratio Urine Color Urine Clarity Urine pH Ur Specific [place] Urine Protein Urine Glucose (UA) Urine Ketones Urine Blood Urine Nitrate Urine Bilirubin Urine Urobilinogen Ur Leukocyte Esterase Urine RBC (Auto) Urine Microscopic WBC Ur Squamous Epith Cells Urine Bacteria Blood Type Blood Type Confirm Antibody Screen Crossmatch BBK History Checked 05/24/17 05/24/17 05/24/17 13:30 13:30 15:10 WBC RBC Hgb Hct MCV MCH MCHC RDW Plt Count MPV Neut % (Auto) Lymph % (Auto) [place] % (Auto) Eos % (Auto) Baso % (Auto) Neut # Lymph # [place] # Eos # Baso # Neutrophils % (Manual) Band Neutrophils % Lymphocytes % (Manual) Monocytes % (Manual) Basophils % (Manual) Platelet Estimate Large Platelets Hypochromasia (manual) Poikilocytosis (manual Anisocytosis (manual) Ovalocytes Stomatocytes PT INR APTT Fibrinogen Sodium Potassium Chloride Carbon Dioxide Anion Gap BUN Creatinine Est GFR ( Amer) Est GFR (Non-Af Amer) POC Glucose (mg/dL) Random Glucose Lactic Acid Uric Acid Calcium Phosphorus Iron 29 L TIBC 273 % Saturation 11 L Ferritin 129.0 Total Bilirubin Direct Bilirubin AST ALT Alkaline Phosphatase Lactate Dehydrogenase Total Protein Albumin Globulin Albumin/Globulin Ratio Urine Color Urine Clarity Urine pH Ur Specific [place] Urine Protein Urine Glucose (UA) Urine Ketones Urine Blood Urine Nitrate Urine Bilirubin Urine Urobilinogen Ur Leukocyte Esterase Urine RBC (Auto) Urine Microscopic WBC Ur Squamous Epith Cells Urine Bacteria Blood Type B POSITIVE Blood Type Confirm Antibody Screen Negative Crossmatch See Detail BBK History Checked No verified bt 05/24/17 05/24/17 15:34 16:28 WBC RBC Hgb Hct MCV MCH MCHC RDW Plt Count MPV Neut % (Auto) Lymph % (Auto) [place] % (Auto) Eos % (Auto) Baso % (Auto) Neut # Lymph # [place] # Eos # Baso # Neutrophils % (Manual) Band Neutrophils % Lymphocytes % (Manual) Monocytes % (Manual) Basophils % (Manual) Platelet Estimate Large Platelets Hypochromasia (manual) Poikilocytosis (manual Anisocytosis (manual) Ovalocytes Stomatocytes PT INR APTT Fibrinogen Sodium Potassium Chloride Carbon Dioxide Anion Gap BUN Creatinine Est GFR ( Amer) Est GFR (Non-Af Amer) POC Glucose (mg/dL) 48 L Random Glucose Lactic Acid Uric Acid Calcium Phosphorus Iron TIBC % Saturation Ferritin Total Bilirubin Direct Bilirubin AST ALT Alkaline Phosphatase Lactate Dehydrogenase Total Protein Albumin Globulin Albumin/Globulin Ratio Urine Color Urine Clarity Urine pH Ur Specific [place] Urine Protein Urine Glucose (UA) Urine Ketones Urine Blood Urine Nitrate Urine Bilirubin Urine Urobilinogen Ur Leukocyte Esterase Urine RBC (Auto) Urine Microscopic WBC Ur Squamous Epith Cells Urine Bacteria Blood Type Blood Type Confirm B POSITIVE Antibody Screen Crossmatch BBK History Checked Assessment & Plan (1) Anemia Assessment and Plan: will check retic count, b12, folate, FOBT to further characterize element of anemia of renal disease; procrit started monoclonal protein w/u sent no evidence of microangiopathic hemolysis transfusion support PRN Status: Acute (2) Thrombocytopenia Assessment and Plan: no evidence of microangiopathic hemolysis rule out HIT; heparin antibody and DANDY sent avoid heparin and lovenox for now; if needs anticoagulation would recommend argatroban until HIT excluded f/u hepatitis and HIV no plt transfusion indication Thank you for this interesting consult. Status: Acute
[2017-05-24] MEDS: Sevelamer Carb 0.8 gm/Packet PO SCH (18:38)
[2017-05-24] MEDS ORDERED: Dextrose 50% SYRINGE Inj (50 ml) IVP ONE (21:39)
[2017-05-25 05:19] LABS: MEAN CELL VOLUME 91.5 fl (80.0-94.0); MEAN CORPUSCULAR HEMOGLOBIN 31.1 pg (27.0-31.0); MEAN CORPUSCULAR HGB CONC 33.9 g/dL (33.0-37.0); RED CELL DISTRIBUTION WIDTH 17.7 % (11.5-14.5); WHITE BLOOD COUNT 8.2 K/uL (4.8-10.8)
[2017-05-25 05:29] LABS: ALB/GLOB RATIO 1.1 (1.0-2.1); BILIRUBIN,TOTAL 0.8 mg/dl (0.2-1.3); CALCIUM 6.9 mg/dL (8.4-10.2); POTASSIUM 4.6 MMOL/L (3.6-5.0); TOTAL PROTEIN 5.7 G/DL (6.3-8.2)
[2017-05-25 05:58] LABS: THYROID STIMULATING HORMONE 0.96 mIU/ML (0.46-4.68)
--- NOTE | 2017-05-25 06:53 | PN ---
DATE: ENDOCRINOLOGY FOLLOWUP NOTE LOCATION: Room 430, ICU. SUBJECTIVE: This is a 71-year-old male with known history of type 2 diabetes and hypertension presenting here with symptomatic hypoglycemia and associated neuroglycopenic and hyperadrenergic manifestation with supervening acute renal failure and possible underlying chronic kidney disease and is now being followed closely for metabolic management. The repeat glycemic profile today showed glucose levels ranging from 48 to 66 and 107 mg/dL. The repeat chemistry showed the BUN of 79, sodium 141, potassium 4.2, chloride 100, CO2 26, glucose 46, and creatinine 6.9. So at this time, we will continue the D50 bolus injection for glucose levels below 70 as ordered. He received initial D10 infusion in the emergency room as given initially on admission. We will obtain serial chemistries and supplement accordingly as needed. The patient may need diabetic and renal supplementation to increase his caloric and protein requirements, which will improve his overall carbohydrate load as noted. We will follow with you. ASSESSMENT AND PLAN: This is a 71-year-old male with symptomatic hypoglycemia and associated neuroglycopenic and hyperadrenergic manifestation related to the same. Because of the advanced azotemia and end stage renal disease, would except impairment of renal gluconeogenesis contributing to the hypoglycemia as noted. Moreover, he was also receiving metformin therapy prior to admission with concomitant suboptimal and new oral intake all of which could have contributed to the aforementioned symptomatic hypoglycemia. Roseanne Mccollum MD
[2017-05-25] MEDS: Sevelamer Carb 0.8 gm/Packet PO SCH ×3 (08:23→17:00)
[2017-05-25] MEDS: Multivitamin Vitamin B Complex (Nephro-Vite) Tab PO SCH (08:24)
[2017-05-25] MEDS: Pantoprazole 40 mg EC Tab PO SCH (08:24)
--- NOTE | 2017-05-25 10:02 | CP.CCUPN ---
CCU Subjective - Physician Review Subjective (Free Text): Awake and sitting OOB to the chair, no distress, underwent HD overnight and scheduled for repeat HD today. Afebrile, BP levels stable, with systolic approx. 110. No tachycardia noted. SPO2 96% on nasal cannula. Remains on D10W at 100ml/hr, repeat random BS= 106 and this is after excellent breakfast intake. He denies any dizziness, chest discomfort, SOB, nausea, palpitations. Other vitals and I/O's reviewed. No fever spikes noted. ROS: unobtainable from intubated patient. No other pertinent negs or positives on 10+ system review. PMSFH: All Nursing and physician documentation reviewed to date; no new pertinent info noted relevant to current medical problems. MAJOR PROBLEMS: 1. Acute Renal Failure with need for acute HIM DIRECTOR, on HD now. 2. Acute on Chronic Disease Anemia 3. Thrombocytopenia with normal Coags. 4. Hypoglycemia with DM II Plan: 1. Repeat HD as per Nephrology; latest K levels acceptable. 2. Metformin remains on hold and still requires supplemental dextrose. Q6H accuchecks. 3. Hgb at expected levels post PRBCs. Check stools for FOBT. Supplemental Iron therapy started. 4. Stable for transfer to stepdown bed. CCU Objective - Vital Signs / Intake & Output Vital Signs (Last 4 hours): Vital Signs Pulse Resp BP Pulse Ox 05/25/17 06:00 77 12 113/61 98 Intake and Output (Last 8hrs): Intake & Output 05/24/17 05/25/17 05/25/17 22:59 06:59 14:59 Intake Total 2615 830 Output Total 20 5 Balance 2595 825 Intake: IV 1170 480 Oral 1120 Blood Product 325 350 Output: Urine 20 5 Urethral (Abdullahi) 20 5 - Physical Exam Head: Positive for: Normocephalic Pupils: Positive for: PERRL Extroacular Muscles: Positive for: EOMI Conjunctiva: Positive for: Normal. Negative for: Icteric Mouth: Positive for: Moist Mucous Membranes Neck: Positive for: Normal Range of Motion. Negative for: JVD Respiratory/Chest: Positive for: Clear to Auscultation, Decreased Breath Sounds. Negative for: Accessory Muscle Use, Wheezes Cardiovascular: Positive for: Regular Rate and Rhythm. Negative for: Murmurs, Rub Abdomen: Positive for: Normal Bowel Sounds. Negative for: Tenderness, Distention Lower Extremity: Positive for: Edema (trace), NORMAL PULSES. Negative for: CALF TENDERNESS, Cyanosis Neurological: Positive for: GCS=15, Motor Func Grossly Intact, Normal Sensory Function Skin: Positive for: Warm. Negative for: Rashes - Medications Active Medications: Active Medications Generic Name Dose Route Start Last Admin Trade Name Freq PRN Reason Stop Dose Admin Allopurinol 100 mg 05/24/17 09:00 05/25/17 08:24 Zyloprim PO 100 mg DAILY ROSS Administration Iron Sucrose 100 mg/ Sodium 105 mls @ 105 mls/hr 05/24/17 14:30 05/25/17 08: 24 Chloride IVPB 05/29/17 14:31 105 mls/hr DAILY ROSS Administration Pantoprazole Sodium 40 mg 05/24/17 09:00 05/25/17 08:24 Protonix Ec Tab PO 40 mg DAILY ROSS Administration Sevelamer Carbonate 1.6 gm 05/24/17 17:00 05/25/17 08:23 Renvela PO 1.6 gm TIDWM ROSS Administration Vitamin B Complex/Vit C/Folic Acid 1 tab 05/24/17 13:45 05/25/17 08:24 Nephro-Juancarlos PO 1 tab DAILY ROSS Administration - Patient Studies Lab Studies: Microbiology Studies 05/24/17 06:30 Urine Culture - Final Urine,Abdullahi No Growth (<1,000 CFU/ML) Lab Studies 05/25/17 05/25/17 05/25/17 Range/Units 09:46 06:23 04:35 WBC (4.8-10.8) K/uL RBC (4.40-5.90) Mil/uL Hgb (12.0-18.0) g/dL Hct (35.0-51.0) % MCV (80.0-94.0) fl MCH (27.0-31.0) pg MCHC (33.0-37.0) g/dL RDW (11.5-14.5) % Plt Count (130-400) K/uL MPV (7.2-11.7) fl Neut % (Auto) (50.0-75.0) % Lymph % (Auto) (20.0-40.0) % [place] % (Auto) (0.0-10.0) % Eos % (Auto) (0.0-4.0) % Baso % (Auto) (0.0-2.0) % Neut # (1.8-7.0) K/uL Lymph # (1.0-4.3) K/uL [place] # (0.0-0.8) K/uL Eos # (0.0-0.7) K/uL Baso # (0.0-0.2) K/uL Neutrophils % (Manual) (42-75) % Band Neutrophils % (0-2) % Lymphocytes % (Manual) (20-50) % Monocytes % (Manual) (0-10) % Basophils % (Manual) (0-2) % Platelet Estimate (NORMAL) Large Platelets Hypochromasia (manual) Poikilocytosis (manual Anisocytosis (manual) Ovalocytes Stomatocytes Retic Count 1.8 H (0.5-1.5) % PT (9.8-13.1) Seconds INR (0.9-1.2) APTT (25.6-37.1) Seconds Fibrinogen (200-400) mg/dl Sodium (132-148) mmol/l Potassium (3.6-5.0) MMOL/L Chloride (98-107) mmol/L Carbon Dioxide (22-30) mmol/L Anion Gap (10-20) BUN (9-20) mg/dl Creatinine (0.8-1.5) mg/dL Est GFR ( Amer) Est GFR (Non-Af Amer) POC Glucose (mg/dL) 101 87 (65-110) mg/dL Random Glucose (75-110) mg/dL Hemoglobin A1c (4.2-6.5) % Calcium (8.4-10.2) mg/dL Iron (49-181) ug/dL TIBC (250-450) ug/dL % Saturation (20-55) % Ferritin ng/mL Total Bilirubin (0.2-1.3) mg/dl Direct Bilirubin (0.0-0.4) mg/ml AST (17-59) U/L ALT (21-72) U/L Alkaline Phosphatase (38-126) U/L Total Protein (6.3-8.2) G/DL Albumin (3.5-5.0) g/dL Globulin (2.2-3.9) gm/dL Albumin/Globulin Ratio (1.0-2.1) Vitamin B12 (239-931) pg/mL TSH 3rd Generation (0.46-4.68) mIU/ML Hep Bs Antibody (NEGATIVE) Blood Type Blood Type Confirm Antibody Screen Crossmatch BBK History Checked 05/25/17 05/25/17 05/24/17 Range/Units 04:35 04:35 21:34 WBC 8.2 (4.8-10.8) K/uL RBC 3.06 L (4.40-5.90) Mil/uL Hgb 9.5 L D (12.0-18.0) g/dL Hct 28.0 L (35.0-51.0) % MCV 91.5 D (80.0-94.0) fl MCH 31.1 H (27.0-31.0) pg MCHC 33.9 (33.0-37.0) g/dL RDW 17.7 H (11.5-14.5) % Plt Count 60 L (130-400) K/uL MPV (7.2-11.7) fl Neut % (Auto) (50.0-75.0) % Lymph % (Auto) (20.0-40.0) % [place] % (Auto) (0.0-10.0) % Eos % (Auto) (0.0-4.0) % Baso % (Auto) (0.0-2.0) % Neut # (1.8-7.0) K/uL Lymph # (1.0-4.3) K/uL [place] # (0.0-0.8) K/uL Eos # (0.0-0.7) K/uL Baso # (0.0-0.2) K/uL Neutrophils % (Manual) (42-75) % Band Neutrophils % (0-2) % Lymphocytes % (Manual) (20-50) % Monocytes % (Manual) (0-10) % Basophils % (Manual) (0-2) % Platelet Estimate (NORMAL) Large Platelets Hypochromasia (manual) Poikilocytosis (manual Anisocytosis (manual) Ovalocytes Stomatocytes Retic Count (0.5-1.5) % PT (9.8-13.1) Seconds INR (0.9-1.2) APTT (25.6-37.1) Seconds Fibrinogen (200-400) mg/dl Sodium 132 (132-148) mmol/l Potassium 4.6 (3.6-5.0) MMOL/L Chloride 95 L (98-107) mmol/L Carbon Dioxide 24 (22-30) mmol/L Anion Gap 18 (10-20) BUN 91 H (9-20) mg/dl Creatinine 8.6 H* D (0.8-1.5) mg/dL Est GFR ( Amer) 7 Est GFR (Non-Af Amer) 6 POC Glucose (mg/dL) 66 (65-110) mg/dL Random Glucose 68 L (75-110) mg/dL Hemoglobin A1c (4.2-6.5) % Calcium 6.9 L (8.4-10.2) mg/dL Iron (49-181) ug/dL TIBC (250-450) ug/dL % Saturation (20-55) % Ferritin ng/mL Total Bilirubin 0.8 (0.2-1.3) mg/dl Direct Bilirubin (0.0-0.4) mg/ml AST 53 (17-59) U/L ALT 50 (21-72) U/L Alkaline Phosphatase 82 (38-126) U/L Total Protein 5.7 L (6.3-8.2) G/DL Albumin 3.0 L (3.5-5.0) g/dL Globulin 2.7 (2.2-3.9) gm/dL Albumin/Globulin Ratio 1.1 (1.0-2.1) Vitamin B12 332 (239-931) pg/mL TSH 3rd Generation 0.96 (0.46-4.68) mIU/ML Hep Bs Antibody (NEGATIVE) Blood Type Blood Type Confirm Antibody Screen Crossmatch BBK History Checked 05/24/17 05/24/17 05/24/17 Range/Units 18:21 16:28 15:34 WBC (4.8-10.8) K/uL RBC (4.40-5.90) Mil/uL Hgb (12.0-18.0) g/dL Hct (35.0-51.0) % MCV (80.0-94.0) fl MCH (27.0-31.0) pg MCHC (33.0-37.0) g/dL RDW (11.5-14.5) % Plt Count (130-400) K/uL MPV (7.2-11.7) fl Neut % (Auto) (50.0-75.0) % Lymph % (Auto) (20.0-40.0) % [place] % (Auto) (0.0-10.0) % Eos % (Auto) (0.0-4.0) % Baso % (Auto) (0.0-2.0) % Neut # (1.8-7.0) K/uL Lymph # (1.0-4.3) K/uL [place] # (0.0-0.8) K/uL Eos # (0.0-0.7) K/uL Baso # (0.0-0.2) K/uL Neutrophils % (Manual) (42-75) % Band Neutrophils % (0-2) % Lymphocytes % (Manual) (20-50) % Monocytes % (Manual) (0-10) % Basophils % (Manual) (0-2) % Platelet Estimate (NORMAL) Large Platelets Hypochromasia (manual) Poikilocytosis (manual Anisocytosis (manual) Ovalocytes Stomatocytes Retic Count (0.5-1.5) % PT (9.8-13.1) Seconds INR (0.9-1.2) APTT (25.6-37.1) Seconds Fibrinogen (200-400) mg/dl Sodium (132-148) mmol/l Potassium (3.6-5.0) MMOL/L Chloride (98-107) mmol/L Carbon Dioxide (22-30) mmol/L Anion Gap (10-20) BUN (9-20) mg/dl Creatinine (0.8-1.5) mg/dL Est GFR ( Amer) Est GFR (Non-Af Amer) POC Glucose (mg/dL) 107 48 L (65-110) mg/dL Random Glucose (75-110) mg/dL Hemoglobin A1c (4.2-6.5) % Calcium (8.4-10.2) mg/dL Iron (49-181) ug/dL TIBC (250-450) ug/dL % Saturation (20-55) % Ferritin ng/mL Total Bilirubin (0.2-1.3) mg/dl Direct Bilirubin (0.0-0.4) mg/ml AST (17-59) U/L ALT (21-72) U/L Alkaline Phosphatase (38-126) U/L Total Protein (6.3-8.2) G/DL Albumin (3.5-5.0) g/dL Globulin (2.2-3.9) gm/dL Albumin/Globulin Ratio (1.0-2.1) Vitamin B12 (239-931) pg/mL TSH 3rd Generation (0.46-4.68) mIU/ML Hep Bs Antibody (NEGATIVE) Blood Type Blood Type Confirm B POSITIVE Antibody Screen Crossmatch BBK History Checked 05/24/17 05/24/17 05/24/17 Range/Units 15:10 13:30 13:30 WBC (4.8-10.8) K/uL RBC (4.40-5.90) Mil/uL Hgb (12.0-18.0) g/dL Hct (35.0-51.0) % MCV (80.0-94.0) fl MCH (27.0-31.0) pg MCHC (33.0-37.0) g/dL RDW (11.5-14.5) % Plt Count (130-400) K/uL MPV (7.2-11.7) fl Neut % (Auto) (50.0-75.0) % Lymph % (Auto) (20.0-40.0) % [place] % (Auto) (0.0-10.0) % Eos % (Auto) (0.0-4.0) % Baso % (Auto) (0.0-2.0) % Neut # (1.8-7.0) K/uL Lymph # (1.0-4.3) K/uL [place] # (0.0-0.8) K/uL Eos # (0.0-0.7) K/uL Baso # (0.0-0.2) K/uL Neutrophils % (Manual) (42-75) % Band Neutrophils % (0-2) % Lymphocytes % (Manual) (20-50) % Monocytes % (Manual) (0-10) % Basophils % (Manual) (0-2) % Platelet Estimate (NORMAL) Large Platelets Hypochromasia (manual) Poikilocytosis (manual Anisocytosis (manual) Ovalocytes Stomatocytes Retic Count (0.5-1.5) % PT (9.8-13.1) Seconds INR (0.9-1.2) APTT (25.6-37.1) Seconds Fibrinogen (200-400) mg/dl Sodium (132-148) mmol/l Potassium (3.6-5.0) MMOL/L Chloride (98-107) mmol/L Carbon Dioxide (22-30) mmol/L Anion Gap (10-20) BUN (9-20) mg/dl Creatinine (0.8-1.5) mg/dL Est GFR ( Amer) Est GFR (Non-Af Amer) POC Glucose (mg/dL) (65-110) mg/dL Random Glucose (75-110) mg/dL Hemoglobin A1c (4.2-6.5) % Calcium (8.4-10.2) mg/dL Iron 29 L (49-181) ug/dL TIBC 273 (250-450) ug/dL % Saturation 11 L (20-55) % Ferritin 129.0 ng/mL Total Bilirubin (0.2-1.3) mg/dl Direct Bilirubin (0.0-0.4) mg/ml AST (17-59) U/L ALT (21-72) U/L Alkaline Phosphatase (38-126) U/L Total Protein (6.3-8.2) G/DL Albumin (3.5-5.0) g/dL Globulin (2.2-3.9) gm/dL Albumin/Globulin Ratio (1.0-2.1) Vitamin B12 (239-931) pg/mL TSH 3rd Generation (0.46-4.68) mIU/ML Hep Bs Antibody (NEGATIVE) Blood Type B POSITIVE Blood Type Confirm Antibody Screen Negative Crossmatch See Detail BBK History Checked No verified bt 05/24/17 05/24/17 05/24/17 Range/Units 13:30 12:10 11:05 WBC 5.6 (4.8-10.8) K/uL RBC 1.98 L (4.40-5.90) Mil/uL Hgb 6.5 L* (12.0-18.0) g/dL Hct 19.0 L (35.0-51.0) % MCV 96.0 H (80.0-94.0) fl MCH 32.6 H (27.0-31.0) pg MCHC 34.0 (33.0-37.0) g/dL RDW 13.3 (11.5-14.5) % Plt Count 65 L (130-400) K/uL MPV 11.4 (7.2-11.7) fl Neut % (Auto) 61.4 (50.0-75.0) % Lymph % (Auto) 26.7 (20.0-40.0) % [place] % (Auto) 10.9 H (0.0-10.0) % Eos % (Auto) 0.7 (0.0-4.0) % Baso % (Auto) 0.3 (0.0-2.0) % Neut # 3.4 (1.8-7.0) K/uL Lymph # 1.5 (1.0-4.3) K/uL [place] # 0.6 (0.0-0.8) K/uL Eos # 0.0 (0.0-0.7) K/uL Baso # 0.0 (0.0-0.2) K/uL Neutrophils % (Manual) 59 (42-75) % Band Neutrophils % 2 (0-2) % Lymphocytes % (Manual) 29 (20-50) % Monocytes % (Manual) 9 (0-10) % Basophils % (Manual) 1 (0-2) % Platelet Estimate Markedly decreased L (NORMAL) Large Platelets Present Hypochromasia (manual) Marked Poikilocytosis (manual Slight Anisocytosis (manual) Slight Ovalocytes Slight Stomatocytes Slight Retic Count (0.5-1.5) % PT 11.7 (9.8-13.1) Seconds INR 1.1 (0.9-1.2) APTT 27.6 (25.6-37.1) Seconds Fibrinogen 306 (200-400) mg/dl Sodium (132-148) mmol/l Potassium (3.6-5.0) MMOL/L Chloride (98-107) mmol/L Carbon Dioxide (22-30) mmol/L Anion Gap (10-20) BUN (9-20) mg/dl Creatinine (0.8-1.5) mg/dL Est GFR ( Amer) Est GFR (Non-Af Amer) POC Glucose (mg/dL) 96 (65-110) mg/dL Random Glucose (75-110) mg/dL Hemoglobin A1c (4.2-6.5) % Calcium (8.4-10.2) mg/dL Iron (49-181) ug/dL TIBC (250-450) ug/dL % Saturation (20-55) % Ferritin ng/mL Total Bilirubin (0.2-1.3) mg/dl Direct Bilirubin (0.0-0.4) mg/ml AST (17-59) U/L ALT (21-72) U/L Alkaline Phosphatase (38-126) U/L Total Protein (6.3-8.2) G/DL Albumin (3.5-5.0) g/dL Globulin (2.2-3.9) gm/dL Albumin/Globulin Ratio (1.0-2.1) Vitamin B12 (239-931) pg/mL TSH 3rd Generation (0.46-4.68) mIU/ML Hep Bs Antibody (NEGATIVE) Blood Type Blood Type Confirm Antibody Screen Crossmatch BBK History Checked 05/24/17 05/24/17 05/24/17 Range/Units 10:00 07:30 05:30 WBC (4.8-10.8) K/uL RBC (4.40-5.90) Mil/uL Hgb (12.0-18.0) g/dL Hct (35.0-51.0) % MCV (80.0-94.0) fl MCH (27.0-31.0) pg MCHC (33.0-37.0) g/dL RDW (11.5-14.5) % Plt Count 58 L D (130-400) K/uL MPV (7.2-11.7) fl Neut % (Auto) (50.0-75.0) % Lymph % (Auto) (20.0-40.0) % [place] % (Auto) (0.0-10.0) % Eos % (Auto) (0.0-4.0) % Baso % (Auto) (0.0-2.0) % Neut # (1.8-7.0) K/uL Lymph # (1.0-4.3) K/uL [place] # (0.0-0.8) K/uL Eos # (0.0-0.7) K/uL Baso # (0.0-0.2) K/uL Neutrophils % (Manual) (42-75) % Band Neutrophils % (0-2) % Lymphocytes % (Manual) (20-50) % Monocytes % (Manual) (0-10) % Basophils % (Manual) (0-2) % Platelet Estimate (NORMAL) Large Platelets Hypochromasia (manual) Poikilocytosis (manual Anisocytosis (manual) Ovalocytes Stomatocytes Retic Count (0.5-1.5) % PT (9.8-13.1) Seconds INR (0.9-1.2) APTT (25.6-37.1) Seconds Fibrinogen (200-400) mg/dl Sodium (132-148) mmol/l Potassium (3.6-5.0) MMOL/L Chloride (98-107) mmol/L Carbon Dioxide (22-30) mmol/L Anion Gap (10-20) BUN (9-20) mg/dl Creatinine (0.8-1.5) mg/dL Est GFR ( Amer) Est GFR (Non-Af Amer) POC Glucose (mg/dL) (65-110) mg/dL Random Glucose (75-110) mg/dL Hemoglobin A1c 8.2 H (4.2-6.5) % Calcium (8.4-10.2) mg/dL Iron (49-181) ug/dL TIBC (250-450) ug/dL % Saturation (20-55) % Ferritin ng/mL Total Bilirubin 0.5 (0.2-1.3) mg/dl Direct Bilirubin 0.5 H (0.0-0.4) mg/ml AST 78 H D (17-59) U/L ALT 52 (21-72) U/L Alkaline Phosphatase 79 (38-126) U/L Total Protein 5.7 L (6.3-8.2) G/DL Albumin 3.1 L (3.5-5.0) g/dL Globulin 2.6 (2.2-3.9) gm/dL Albumin/Globulin Ratio 1.2 (1.0-2.1) Vitamin B12 (239-931) pg/mL TSH 3rd Generation (0.46-4.68) mIU/ML Hep Bs Antibody (NEGATIVE) Blood Type Blood Type Confirm Antibody Screen Crossmatch BBK History Checked 05/23/17 Range/Units 21:20 WBC (4.8-10.8) K/uL RBC (4.40-5.90) Mil/uL Hgb (12.0-18.0) g/dL Hct (35.0-51.0) % MCV (80.0-94.0) fl MCH (27.0-31.0) pg MCHC (33.0-37.0) g/dL RDW (11.5-14.5) % Plt Count (130-400) K/uL MPV (7.2-11.7) fl Neut % (Auto) (50.0-75.0) % Lymph % (Auto) (20.0-40.0) % [place] % (Auto) (0.0-10.0) % Eos % (Auto) (0.0-4.0) % Baso % (Auto) (0.0-2.0) % Neut # (1.8-7.0) K/uL Lymph # (1.0-4.3) K/uL [place] # (0.0-0.8) K/uL Eos # (0.0-0.7) K/uL Baso # (0.0-0.2) K/uL Neutrophils % (Manual) (42-75) % Band Neutrophils % (0-2) % Lymphocytes % (Manual) (20-50) % Monocytes % (Manual) (0-10) % Basophils % (Manual) (0-2) % Platelet Estimate (NORMAL) Large Platelets Hypochromasia (manual) Poikilocytosis (manual Anisocytosis (manual) Ovalocytes Stomatocytes Retic Count (0.5-1.5) % PT (9.8-13.1) Seconds INR (0.9-1.2) APTT (25.6-37.1) Seconds Fibrinogen (200-400) mg/dl Sodium (132-148) mmol/l Potassium (3.6-5.0) MMOL/L Chloride (98-107) mmol/L Carbon Dioxide (22-30) mmol/L Anion Gap (10-20) BUN (9-20) mg/dl Creatinine (0.8-1.5) mg/dL Est GFR ( Amer) Est GFR (Non-Af Amer) POC Glucose (mg/dL) (65-110) mg/dL Random Glucose (75-110) mg/dL Hemoglobin A1c (4.2-6.5) % Calcium (8.4-10.2) mg/dL Iron (49-181) ug/dL TIBC (250-450) ug/dL % Saturation (20-55) % Ferritin ng/mL Total Bilirubin (0.2-1.3) mg/dl Direct Bilirubin (0.0-0.4) mg/ml AST (17-59) U/L ALT (21-72) U/L Alkaline Phosphatase (38-126) U/L Total Protein (6.3-8.2) G/DL Albumin (3.5-5.0) g/dL Globulin (2.2-3.9) gm/dL Albumin/Globulin Ratio (1.0-2.1) Vitamin B12 (239-931) pg/mL TSH 3rd Generation (0.46-4.68) mIU/ML Hep Bs Antibody Negative (NEGATIVE) Blood Type Blood Type Confirm Antibody Screen Crossmatch BBK History Checked Laboratory Results - last 24 hr 05/23/17 05/24/17 05/24/17 21:20 05:30 07:30 WBC RBC Hgb Hct MCV MCH MCHC RDW Plt Count 58 L D MPV Neut % (Auto) Lymph % (Auto) [place] % (Auto) Eos % (Auto) Baso % (Auto) Neut # Lymph # [place] # Eos # Baso # Neutrophils % (Manual) Band Neutrophils % Lymphocytes % (Manual) Monocytes % (Manual) Basophils % (Manual) Platelet Estimate Large Platelets Hypochromasia (manual) Poikilocytosis (manual Anisocytosis (manual) Ovalocytes Stomatocytes Retic Count PT INR APTT Fibrinogen Sodium Potassium Chloride Carbon Dioxide Anion Gap BUN Creatinine Est GFR ( Amer) Est GFR (Non-Af Amer) POC Glucose (mg/dL) Random Glucose Hemoglobin A1c 8.2 H Calcium Iron TIBC % Saturation Ferritin Total Bilirubin Direct Bilirubin AST ALT Alkaline Phosphatase Total Protein Albumin Globulin Albumin/Globulin Ratio Vitamin B12 TSH 3rd Generation Hep Bs Antibody Negative Blood Type Blood Type Confirm Antibody Screen Crossmatch BBK History Checked 05/24/17 05/24/17 05/24/17 10:00 11:05 12:10 WBC 5.6 RBC 1.98 L Hgb 6.5 L* Hct 19.0 L MCV 96.0 H MCH 32.6 H MCHC 34.0 RDW 13.3 Plt Count 65 L MPV 11.4 Neut % (Auto) 61.4 Lymph % (Auto) 26.7 [place] % (Auto) 10.9 H Eos % (Auto) 0.7 Baso % (Auto) 0.3 Neut # 3.4 Lymph # 1.5 [place] # 0.6 Eos # 0.0 Baso # 0.0 Neutrophils % (Manual) 59 Band Neutrophils % 2 Lymphocytes % (Manual) 29 Monocytes % (Manual) 9 Basophils % (Manual) 1 Platelet Estimate Markedly decreased L Large Platelets Present Hypochromasia (manual) Marked Poikilocytosis (manual Slight Anisocytosis (manual) Slight Ovalocytes Slight Stomatocytes Slight Retic Count PT INR APTT Fibrinogen Sodium Potassium Chloride Carbon Dioxide Anion Gap BUN Creatinine Est GFR ( Amer) Est GFR (Non-Af Amer) POC Glucose (mg/dL) 96 Random Glucose Hemoglobin A1c Calcium Iron TIBC % Saturation Ferritin Total Bilirubin 0.5 Direct Bilirubin 0.5 H AST 78 H D ALT 52 Alkaline Phosphatase 79 Total Protein 5.7 L Albumin 3.1 L Globulin 2.6 Albumin/Globulin Ratio 1.2 Vitamin B12 TSH 3rd Generation Hep Bs Antibody Blood Type Blood Type Confirm Antibody Screen Crossmatch BBK History Checked 05/24/17 05/24/17 05/24/17 13:30 13:30 13:30 WBC RBC Hgb Hct MCV MCH MCHC RDW Plt Count MPV Neut % (Auto) Lymph % (Auto) [place] % (Auto) Eos % (Auto) Baso % (Auto) Neut # Lymph # [place] # Eos # Baso # Neutrophils % (Manual) Band Neutrophils % Lymphocytes % (Manual) Monocytes % (Manual) Basophils % (Manual) Platelet Estimate Large Platelets Hypochromasia (manual) Poikilocytosis (manual Anisocytosis (manual) Ovalocytes Stomatocytes Retic Count PT 11.7 INR 1.1 APTT 27.6 Fibrinogen 306 Sodium Potassium Chloride Carbon Dioxide Anion Gap BUN Creatinine Est GFR ( Amer) Est GFR (Non-Af Amer) POC Glucose (mg/dL) Random Glucose Hemoglobin A1c Calcium Iron 29 L TIBC 273 % Saturation 11 L Ferritin 129.0 Total Bilirubin Direct Bilirubin AST ALT Alkaline Phosphatase Total Protein Albumin Globulin Albumin/Globulin Ratio Vitamin B12 TSH 3rd Generation Hep Bs Antibody Blood Type Blood Type Confirm Antibody Screen Crossmatch BBK History Checked 05/24/17 05/24/17 05/24/17 15:10 15:34 16:28 WBC RBC Hgb Hct MCV MCH MCHC RDW Plt Count MPV Neut % (Auto) Lymph % (Auto) [place] % (Auto) Eos % (Auto) Baso % (Auto) Neut # Lymph # [place] # Eos # Baso # Neutrophils % (Manual) Band Neutrophils % Lymphocytes % (Manual) Monocytes % (Manual) Basophils % (Manual) Platelet Estimate Large Platelets Hypochromasia (manual) Poikilocytosis (manual Anisocytosis (manual) Ovalocytes Stomatocytes Retic Count PT INR APTT Fibrinogen Sodium Potassium Chloride Carbon Dioxide Anion Gap BUN Creatinine Est GFR ( Amer) Est GFR (Non-Af Amer) POC Glucose (mg/dL) 48 L Random Glucose Hemoglobin A1c Calcium Iron TIBC % Saturation Ferritin Total Bilirubin Direct Bilirubin AST ALT Alkaline Phosphatase Total Protein Albumin Globulin Albumin/Globulin Ratio Vitamin B12 TSH 3rd Generation Hep Bs Antibody Blood Type B POSITIVE Blood Type Confirm B POSITIVE Antibody Screen Negative Crossmatch See Detail BBK History Checked No verified bt 05/24/17 05/24/17 05/25/17 18:21 21:34 04:35 WBC 8.2 RBC 3.06 L Hgb 9.5 L D Hct 28.0 L MCV 91.5 D MCH 31.1 H MCHC 33.9 RDW 17.7 H Plt Count 60 L MPV Neut % (Auto) Lymph % (Auto) [place] % (Auto) Eos % (Auto) Baso % (Auto) Neut # Lymph # [place] # Eos # Baso # Neutrophils % (Manual) Band Neutrophils % Lymphocytes % (Manual) Monocytes % (Manual) Basophils % (Manual) Platelet Estimate Large Platelets Hypochromasia (manual) Poikilocytosis (manual Anisocytosis (manual) Ovalocytes Stomatocytes Retic Count PT INR APTT Fibrinogen Sodium Potassium Chloride Carbon Dioxide Anion Gap BUN Creatinine Est GFR ( Amer) Est GFR (Non-Af Amer) POC Glucose (mg/dL) 107 66 Random Glucose Hemoglobin A1c Calcium Iron TIBC % Saturation Ferritin Total Bilirubin Direct Bilirubin AST ALT Alkaline Phosphatase Total Protein Albumin Globulin Albumin/Globulin Ratio Vitamin B12 TSH 3rd Generation Hep Bs Antibody Blood Type Blood Type Confirm Antibody Screen Crossmatch BBK History Checked 05/25/17 05/25/17 05/25/17 04:35 04:35 06:23 WBC RBC Hgb Hct MCV MCH MCHC RDW Plt Count MPV Neut % (Auto) Lymph % (Auto) [place] % (Auto) Eos % (Auto) Baso % (Auto) Neut # Lymph # [place] # Eos # Baso # Neutrophils % (Manual) Band Neutrophils % Lymphocytes % (Manual) Monocytes % (Manual) Basophils % (Manual) Platelet Estimate Large Platelets Hypochromasia (manual) Poikilocytosis (manual Anisocytosis (manual) Ovalocytes Stomatocytes Retic Count 1.8 H PT INR APTT Fibrinogen Sodium 132 Potassium 4.6 Chloride 95 L Carbon Dioxide 24 Anion Gap 18 BUN 91 H Creatinine 8.6 H* D Est GFR ( Amer) 7 Est GFR (Non-Af Amer) 6 POC Glucose (mg/dL) 87 Random Glucose 68 L Hemoglobin A1c Calcium 6.9 L Iron TIBC % Saturation Ferritin Total Bilirubin 0.8 Direct Bilirubin AST 53 ALT 50 Alkaline Phosphatase 82 Total Protein 5.7 L Albumin 3.0 L Globulin 2.7 Albumin/Globulin Ratio 1.1 Vitamin B12 332 TSH 3rd Generation 0.96 Hep Bs Antibody Blood Type Blood Type Confirm Antibody Screen Crossmatch BBK History Checked 05/25/17 09:46 WBC RBC Hgb Hct MCV MCH MCHC RDW Plt Count MPV Neut % (Auto) Lymph % (Auto) [place] % (Auto) Eos % (Auto) Baso % (Auto) Neut # Lymph # [place] # Eos # Baso # Neutrophils % (Manual) Band Neutrophils % Lymphocytes % (Manual) Monocytes % (Manual) Basophils % (Manual) Platelet Estimate Large Platelets Hypochromasia (manual) Poikilocytosis (manual Anisocytosis (manual) Ovalocytes Stomatocytes Retic Count PT INR APTT Fibrinogen Sodium Potassium Chloride Carbon Dioxide Anion Gap BUN Creatinine Est GFR ( Amer) Est GFR (Non-Af Amer) POC Glucose (mg/dL) 101 Random Glucose Hemoglobin A1c Calcium Iron TIBC % Saturation Ferritin Total Bilirubin Direct Bilirubin AST ALT Alkaline Phosphatase Total Protein Albumin Globulin Albumin/Globulin Ratio Vitamin B12 TSH 3rd Generation Hep Bs Antibody Blood Type Blood Type Confirm Antibody Screen Crossmatch BBK History Checked Fingerstick Blood Sugar Results: 87 Review of Systems - Review of Systems All systems: reviewed and no additional remarkable complaints except (as above) Critical Care Progress Note - Extremities/Vascular Does the Patient have a Central Venous Catheter?: Yes Insertion Site: Femoral Vein Does the Patient need a Central Venous Catheter?: Yes (for HD ) Does the Patient have a Abdullahi Catheter?: Yes Does the Patient need a Abdullahi Catheter?: No - Prophylaxis GI Prophylaxis GI: PPI - Prophylaxis DVT Prophylaxis DVT: SCDs - Nutrition Nutrition: Nutrition Category Date Time Status Renal Diet [DIET] Diets 05/24/17 Dinner Active
--- NOTE | 2017-05-25 11:33 | CP.PCM.PN ---
Subjective - Date & Time of Evaluation Date of Evaluation: 05/25/17 Time of Evaluation: 11:30 - Subjective Subjective: Pt seen and examined and family at bedside discussed test results and treatment plan Pt denies CP no SOB no abd pain feels better complain of left knee pain No fever Objective - Vital Signs/Intake and Output Vital Signs (last 24 hours): Temp Pulse Resp BP Pulse Ox 98.6 F 79 13 106/66 96 05/25/17 04:00 05/25/17 10:00 05/25/17 10:00 05/25/17 10:00 05/25/17 10:00 Intake and Output: 05/25/17 05/25/17 06:59 18:59 Intake Total 1445 460 Output Total 25 Balance 1420 460 - Medications Medications: Current Medications Allopurinol (Zyloprim) 100 mg PO DAILY [facility] Last Admin: 05/25/17 08:24 Dose: 100 mg Doxercalciferol (Hectorol) 2 mcg IV MWF [facility] Stop: 06/01/17 23:59 Epoetin Junior (Procrit) 10,000 unit IV MWF [facility] Stop: 06/01/17 23:59 Iron Sucrose 100 mg/ Sodium (Chloride) 105 mls @ 105 mls/hr IVPB DAILY [facility] Stop: 05/29/17 14:31 Last Admin: 05/25/17 08:24 Dose: 105 mls/hr Pantoprazole Sodium (Protonix Ec Tab) 40 mg PO DAILY [facility] Last Admin: 05/25/17 08:24 Dose: 40 mg Sevelamer Carbonate (Renvela) 1.6 gm PO TIDWM [facility] Last Admin: 05/25/17 08:23 Dose: 1.6 gm Vitamin B Complex/Vit C/Folic Acid (Nephro-Juancarlos) 1 tab PO DAILY [facility] Last Admin: 05/25/17 08:24 Dose: 1 tab - Labs Labs: 05/25/17 04:35 05/25/17 04:35 PT 11.7 Seconds (9.8-13.1) 05/24/17 13:30 INR 1.1 (0.9-1.2) 05/24/17 13:30 APTT 27.6 Seconds (25.6-37.1) 05/24/17 13:30 - Constitutional Appears: No Acute Distress - Head Exam Head Exam: NORMAL INSPECTION, NORMOCEPHALIC - Eye Exam Eye Exam: EOMI, Normal appearance Pupil Exam: NORMAL ACCOMODATION - ENT Exam ENT Exam: Mucous Membranes Moist, Normal External Ear Exam - Neck Exam Neck Exam: Full ROM. absent: Meningismus - Respiratory Exam Respiratory Exam: NORMAL BREATHING PATTERN. absent: Respiratory Distress - Cardiovascular Exam Cardiovascular Exam: REGULAR RHYTHM, +S1, +S2 - GI/Abdominal Exam GI & Abdominal Exam: Soft, Normal Bowel Sounds. absent: Tenderness - Extremities Exam Extremities Exam: Normal Capillary Refill. absent: Calf Tenderness, Pedal Edema Additional comments: pain on ROM of left knee , sl pain hip - Back Exam Back Exam: Full ROM. absent: CVA tenderness (L), CVA tenderness (R) - Neurological Exam Neurological Exam: Alert, Awake, CN II-XII Intact, Oriented x3 Neuro motor strength exam: Left Upper Extremity: 5, Right Upper Extremity: 5, Left Lower Extremity: 5, Right Lower Extremity: 5 - Psychiatric Exam Psychiatric exam: Normal Affect, Normal Mood - Skin Skin Exam: Dry, Normal Color, Warm Assessment and Plan - Assessment and Plan (Free Text) Assessment: 71 yo male with history of DM2, HTN, CKD and Gout came in because of back pain and leg pain since 3 days ago accompanied with generalized weakness and uncontrollable tremors. Patient states that he fell at home coming out of shower. Denied SOB, chest pain, fever or chills. In ER found to have BUN/Cr 155/ 11.9 Hyperkalemic K 7.7 acidotic with HCO3 9 and lactica acid 4.3 Patient admitted in ICU with MADONNA on CKD, metabolic acidosis, hyperkalemia 1. Acute renal failure (ARF) on CKD Acute Patient with BUN/Cr 155/11.6 on admission and HCO3 9 and K 7.7 , Anuric Admitted to ICU and nephro consulted stat HD started Treated with NaHCO3 drip and D50 insulin , kayexalate initially for acidosis and hyperkalemia acidosis corrected with HCO3 today 26 k 4.2 Will continue with HD as per nephro recommendations 2.Metabolic acidosis As above most likely secondarry to renal failure corrected with NaHCO3 drip and HD 3. Lactic acidosis most likely secondary to metformin use in setting of CKD no signs of sepsis D/c metformin 4. Hyperkalemia secondary to renal failure Treated with D50 amp, insulin , duoneb, calcium gluconate and Kayexalate s/p HD renal diet 5.DM with Hypoglycemia Hold PO meds Started on D10 NS diabetic diet continue accuchecks endo consult 6. Thrombocytopenia unclear etiology r/o HIT, TTP Platelet count dropped from 137 K -- 58 K no sign of bleeding hematology consulted patient received 1 dose 5000 unit Heparin before HD check HIT antibody 7. Anemia most likely patient has some degree of chronic anemia secondary to CKD but since Hgb is dropping from 8.3 -- 6.5 unclear if there is any acute blood loss anemia either intravascular hemylitic process or GI loss check haptoglobin, LDH, iron profile, ferritin, retic count, occult blood Hematology consulted type and cross and transfuse 2 unit PRBC as soon as anemia work up is sent 8. HTN (hypertension) Chronic controlled without meds 9. Gout stable uric acid level = 16 now down to 8 10. Knee Pain hx of recent fall at home will do left knee xray and bilat hip xray DVT prophylaxis SCD
[2017-05-25 11:48] LABS: CORTISOL AM 19.4 ug/dL (4.46-22.7)
[2017-05-25 12:23] LABS: FOLATE 6.6 ng/mL
[2017-05-25] MEDS: EPOETIN ALFA 10,000 UNIT/ML ML IV SCH ×2 (14:00→16:59)
[2017-05-25] MEDS: Doxercalciferol 4 mcg/2 ml Inj IV SCH (15:45)
--- NOTE | 2017-05-25 16:12 | CP.PCM.CON ---
<Luz Marina Glez - Last Filed: 05/25/17 16:07> History of Present Illness - History of Present Illness History of Present Illness: 71M w/ hx of HTN, DM, CKD, who presented to ED with progressively worsening back pain and generalized weakness. He was found to be in acute on chronic renal failure, with severe metabolic acidosis and hyperkalemia (potassium of 7.6 ). Patient was unable to give further history at the time d/t lethargy and tremors. Surgery was called for placement of emergent hemodialysis catheter. This was discussed with the son who was present and able to sign consent for the patient at the patient's request. Review of Systems - Review of Systems Systems not reviewed;Unavailable: Acuity of Condition, Altered Mental Status Past Patient History - Infectious Disease Hx of Infectious Diseases: None - Tetanus Immunizations Tetanus Immunization: Unknown - Past Medical History & Family History Past Medical History?: Yes - Past Social History Smoking Status: Never Smoked - CARDIAC Hx Hypercholesterolemia: Yes Hx Hypertension: Yes - PULMONARY Hx Respiratory Disorders: No - NEUROLOGICAL Hx Neurological Disorder: No - HEENT Hx Cataracts: Yes - RENAL Hx Chronic Kidney Disease: No - ENDOCRINE/METABOLIC Hx Diabetes Mellitus Type 1: Yes - HEMATOLOGICAL/ONCOLOGICAL Hx Blood Disorders: No - INTEGUMENTARY Hx Dermatological Problems: No - MUSCULOSKELETAL/RHEUMATOLOGICAL Hx Arthritis: Yes Hx Falls: No Hx Gout: Yes - GASTROINTESTINAL Hx Gastrointestinal Disorders: No - GENITOURINARY/GYNECOLOGICAL Hx Genitourinary Disorders: No - PSYCHIATRIC Hx Substance Use: No - SURGICAL HISTORY Hx Surgeries: No - ANESTHESIA Hx Anesthesia: No Meds Allergies/Adverse Reactions: Allergies Allergy/AdvReac Type Severity Reaction Status Date / Time No Known Allergies Allergy Verified 09/22/15 19:52 - Medications Medications: Current Medications Allopurinol (Zyloprim) 100 mg PO DAILY [facility] Last Admin: 05/25/17 08:24 Dose: 100 mg Doxercalciferol (Hectorol) 2 mcg IV MWF [facility] Stop: 06/01/17 23:59 Epoetin Junior (Procrit) 10,000 unit IV MWF [facility] Stop: 06/01/17 23:59 Last Admin: 05/25/17 14:00 Dose: 10,000 unit Iron Sucrose 100 mg/ Sodium (Chloride) 105 mls @ 105 mls/hr IVPB DAILY [facility] Stop: 05/29/17 14:31 Last Admin: 05/25/17 14:01 Dose: 105 mls/hr Pantoprazole Sodium (Protonix Ec Tab) 40 mg PO DAILY [facility] Last Admin: 05/25/17 08:24 Dose: 40 mg Sevelamer Carbonate (Renvela) 1.6 gm PO TIDWM [facility] Last Admin: 05/25/17 12:43 Dose: Not Given Vitamin B Complex/Vit C/Folic Acid (Nephro-Juancarlos) 1 tab PO DAILY [facility] Last Admin: 05/25/17 08:24 Dose: 1 tab Physical Exam - Constitutional Appears: Toxic, Confused - Head Exam Head Exam: ATRAUMATIC, NORMAL INSPECTION, NORMOCEPHALIC - Eye Exam Eye Exam: EOMI - ENT Exam ENT Exam: Mucous Membranes Dry - Respiratory Exam Respiratory Exam: NORMAL BREATHING PATTERN. absent: Respiratory Distress - Cardiovascular Exam Cardiovascular Exam: Tachycardia (90s) - Extremities Exam Extremities exam: Positive for: pedal edema. Negative for: calf tenderness - Neurological Exam Neurological exam: Alert, Altered - Skin Skin Exam: Diaphoretic, Pallor Results - Vital Signs Recent Vital Signs: Last Vital Signs Temp 98.0 F 05/25/17 12:00 Pulse 85 05/25/17 14:00 Resp 16 05/25/17 14:00 BP 107/66 05/25/17 14:00 Pulse Ox 97 05/25/17 14:00 - Labs Result Diagrams: 05/25/17 04:35 05/25/17 04:35 Labs: Laboratory Results - last 24 hr 05/23/17 05/23/17 05/24/17 21:20 21:20 05:30 WBC RBC Hgb Hct MCV MCH MCHC RDW Plt Count Retic Count Sodium Potassium Chloride Carbon Dioxide Anion Gap BUN Creatinine Est GFR ( Amer) Est GFR (Non-Af Amer) POC Glucose (mg/dL) Random Glucose Hemoglobin A1c 8.2 H Calcium Total Bilirubin AST ALT Alkaline Phosphatase Total Protein Albumin Globulin Albumin/Globulin Ratio Vitamin B12 Folate TSH 3rd Generation Cortisol AM Sample Hep Bs Antigen Negative Hep Bs Antibody Negative Hep B Core IgM Ab Negative Hepatitis C Antibody Negative HIV 1&2 Antibody Screen Blood Type Blood Type Confirm Antibody Screen Crossmatch BBK History Checked 05/24/17 05/24/17 05/24/17 15:10 15:34 16:28 WBC RBC Hgb Hct MCV MCH MCHC RDW Plt Count Retic Count Sodium Potassium Chloride Carbon Dioxide Anion Gap BUN Creatinine Est GFR ( Amer) Est GFR (Non-Af Amer) POC Glucose (mg/dL) 48 L Random Glucose Hemoglobin A1c Calcium Total Bilirubin AST ALT Alkaline Phosphatase Total Protein Albumin Globulin Albumin/Globulin Ratio Vitamin B12 Folate TSH 3rd Generation Cortisol AM Sample Hep Bs Antigen Hep Bs Antibody Hep B Core IgM Ab Hepatitis C Antibody HIV 1&2 Antibody Screen Blood Type B POSITIVE Blood Type Confirm B POSITIVE Antibody Screen Negative Crossmatch See Detail BBK History Checked No verified bt 05/24/17 05/24/17 05/25/17 18:21 21:34 04:35 WBC 8.2 RBC 3.06 L Hgb 9.5 L D Hct 28.0 L MCV 91.5 D MCH 31.1 H MCHC 33.9 RDW 17.7 H Plt Count 60 L Retic Count Sodium Potassium Chloride Carbon Dioxide Anion Gap BUN Creatinine Est GFR ( Amer) Est GFR (Non-Af Amer) POC Glucose (mg/dL) 107 66 Random Glucose Hemoglobin A1c Calcium Total Bilirubin AST ALT Alkaline Phosphatase Total Protein Albumin Globulin Albumin/Globulin Ratio Vitamin B12 Folate TSH 3rd Generation Cortisol AM Sample Hep Bs Antigen Hep Bs Antibody Hep B Core IgM Ab Hepatitis C Antibody HIV 1&2 Antibody Screen Blood Type Blood Type Confirm Antibody Screen Crossmatch BBK History Checked 05/25/17 05/25/17 05/25/17 04:35 04:35 04:35 WBC RBC Hgb Hct MCV MCH MCHC RDW Plt Count Retic Count 1.8 H Sodium 132 Potassium 4.6 Chloride 95 L Carbon Dioxide 24 Anion Gap 18 BUN 91 H Creatinine 8.6 H* D Est GFR ( Amer) 7 Est GFR (Non-Af Amer) 6 POC Glucose (mg/dL) Random Glucose 68 L Hemoglobin A1c Calcium 6.9 L Total Bilirubin 0.8 AST 53 ALT 50 Alkaline Phosphatase 82 Total Protein 5.7 L Albumin 3.0 L Globulin 2.7 Albumin/Globulin Ratio 1.1 Vitamin B12 332 Folate 6.6 TSH 3rd Generation 0.96 Cortisol AM Sample 19.4 Hep Bs Antigen Hep Bs Antibody Hep B Core IgM Ab Hepatitis C Antibody HIV 1&2 Antibody Screen Negative Blood Type Blood Type Confirm Antibody Screen Crossmatch BBK History Checked 05/25/17 05/25/17 05/25/17 06:23 09:46 11:14 WBC RBC Hgb Hct MCV MCH MCHC RDW Plt Count Retic Count Sodium Potassium Chloride Carbon Dioxide Anion Gap BUN Creatinine Est GFR ( Amer) Est GFR (Non-Af Amer) POC Glucose (mg/dL) 87 101 98 Random Glucose Hemoglobin A1c Calcium Total Bilirubin AST ALT Alkaline Phosphatase Total Protein Albumin Globulin Albumin/Globulin Ratio Vitamin B12 Folate TSH 3rd Generation Cortisol AM Sample Hep Bs Antigen Hep Bs Antibody Hep B Core IgM Ab Hepatitis C Antibody HIV 1&2 Antibody Screen Blood Type Blood Type Confirm Antibody Screen Crossmatch BBK History Checked Assessment & Plan - Assessment and Plan (Free Text) Assessment: 71yo M w/ acute on chronic renal failure w/ severe metabolic acidosis and hyperkalemia -Emergent dialysis -Will place femoral HD catheter -Informed consent obtained -Procedure note dictated -DW Dr. Shannan Glez PGY3 <Alpesh Campbell - Last Filed: 05/26/17 16:09> Meds - Medications Medications: Current Medications Allopurinol (Zyloprim) 100 mg PO DAILY [facility] Last Admin: 05/26/17 08:32 Dose: 100 mg Doxercalciferol (Hectorol) 2 mcg IV MWF [facility] Stop: 06/01/17 23:59 Last Admin: 05/25/17 15:45 Dose: 2 mcg Epoetin Junior (Procrit) 10,000 unit IV F [facility] Stop: 06/01/17 23:59 Last Admin: 05/25/17 16:59 Dose: Not Given Iron Sucrose 100 mg/ Sodium (Chloride) 105 mls @ 105 mls/hr IVPB DAILY [facility] Stop: 05/29/17 14:31 Last Admin: 05/26/17 08:33 Dose: 105 mls/hr Insulin Human Regular (Humulin R) 0 units SC ACHS [facility] PRN Reason: Protocol Last Admin: 05/26/17 11:28 Dose: 6 units Lidocaine (Lidoderm) 1 ea TD DAILY [facility] Last Admin: 05/26/17 13:43 Dose: 1 ea Pantoprazole Sodium (Protonix Ec Tab) 40 mg PO DAILY [facility] Last Admin: 05/26/17 08:32 Dose: 40 mg Sevelamer Carbonate (Renvela) 1.6 gm PO TIDWM [facility] Last Admin: 05/26/17 13:45 Dose: 1.6 gm Vitamin B Complex/Vit C/Folic Acid (Nephro-Juancarlos) 1 tab PO DAILY [facility] Last Admin: 05/26/17 08:32 Dose: 1 tab Results - Vital Signs Recent Vital Signs: Last Vital Signs Temp 97.8 F 05/26/17 11:56 Pulse 102 H 05/26/17 14:00 Resp 24 05/26/17 14:00 BP 130/78 05/26/17 14:00 Pulse Ox 96 05/26/17 14:00 - Labs Result Diagrams: 05/26/17 04:30 05/26/17 12:00 Labs: Laboratory Results - last 24 hr 05/23/17 05/23/17 05/24/17 21:20 21:20 10:00 WBC RBC Hgb Hct MCV MCH MCHC RDW Plt Count MPV Neut % (Auto) Lymph % (Auto) [place] % (Auto) Eos % (Auto) Baso % (Auto) Neut # Lymph # [place] # Eos # Baso # Haptoglobin 157 Sodium Potassium Chloride Carbon Dioxide Anion Gap BUN Creatinine Est GFR ( Amer) Est GFR (Non-Af Amer) POC Glucose (mg/dL) Random Glucose Calcium Total Bilirubin AST ALT Alkaline Phosphatase Total Protein Total Protein (PEP) 6.1 Albumin Globulin Albumin/Globulin Ratio PTH Intact Whole Molec 147 H C. difficile Ag & Toxin 05/25/17 05/25/17 05/25/17 16:16 17:35 22:55 WBC RBC Hgb Hct MCV MCH MCHC RDW Plt Count MPV Neut % (Auto) Lymph % (Auto) [place] % (Auto) Eos % (Auto) Baso % (Auto) Neut # Lymph # [place] # Eos # Baso # Haptoglobin Sodium Potassium Chloride Carbon Dioxide Anion Gap BUN Creatinine Est GFR ( Amer) Est GFR (Non-Af Amer) POC Glucose (mg/dL) 116 H 190 H Random Glucose Calcium Total Bilirubin AST ALT Alkaline Phosphatase Total Protein Total Protein (PEP) Albumin Globulin Albumin/Globulin Ratio PTH Intact Whole Molec C. difficile Ag & Toxin Negative 05/26/17 05/26/17 05/26/17 04:30 04:30 05:47 WBC 8.5 RBC 3.10 L Hgb 9.7 L Hct 28.2 L MCV 90.8 MCH 31.2 H MCHC 34.3 RDW 17.5 H Plt Count 47 L MPV 11.1 Neut % (Auto) 83.1 H Lymph % (Auto) 11.5 L [place] % (Auto) 4.8 Eos % (Auto) 0.4 Baso % (Auto) 0.2 Neut # 7.1 H Lymph # 1.0 [place] # 0.4 Eos # 0.0 Baso # 0.0 Haptoglobin Sodium 127 L Potassium 5.9 H Chloride 91 L Carbon Dioxide 23 Anion Gap 19 BUN 68 H Creatinine 7.3 H Est GFR ( Amer) 9 Est GFR (Non-Af Amer) 7 POC Glucose (mg/dL) 296 H Random Glucose 243 H Calcium 6.7 L Total Bilirubin 0.7 AST 53 ALT 53 Alkaline Phosphatase 90 Total Protein 5.8 L Total Protein (PEP) Albumin 3.1 L Globulin 2.8 Albumin/Globulin Ratio 1.1 PTH Intact Whole Molec C. difficile Ag & Toxin 05/26/17 05/26/17 05/26/17 11:21 12:00 12:07 WBC RBC Hgb Hct MCV MCH MCHC RDW Plt Count MPV Neut % (Auto) Lymph % (Auto) [place] % (Auto) Eos % (Auto) Baso % (Auto) Neut # Lymph # [place] # Eos # Baso # Haptoglobin Sodium 126 L Potassium 4.8 Chloride 90 L Carbon Dioxide 17 L Anion Gap 24 H BUN 78 H Creatinine 8.0 H* Est GFR ( Amer) 8 Est GFR (Non-Af Amer) 7 POC Glucose (mg/dL) 478 H* 497 H* Random Glucose 436 H* D Calcium 6.5 L Total Bilirubin AST ALT Alkaline Phosphatase Total Protein Total Protein (PEP) Albumin Globulin Albumin/Globulin Ratio PTH Intact Whole Molec C. difficile Ag & Toxin Attending/Attestation - Attestation I have personally seen and examined this patient.: Yes I have fully participated in the care of the patient.: Yes I have reviewed all pertinent clinical information: Yes Notes (Text): 05/26/17 16:08 Pt was seen and examined at bedside Agree with above note and assessment Pt with Metabolic acidosis and ESRD on HD HD catheter at bedside consent c/w current mx Plan d/w pt' family in detail Risk and benefit explained in detail.
[2017-05-25 16:23] LABS: TOTAL PROTEIN, SERUM 6.1 g/dL (6.1-8.1)
--- NOTE | 2017-05-25 20:19 | CP.PCM.PN ---
Subjective - Date & Time of Evaluation Date of Evaluation: 05/25/17 Time of Evaluation: 20:19 - Subjective Subjective: pt is seen and examined, follow up consult is dictated #[id number] s/p HD today Objective - Vital Signs/Intake and Output Vital Signs (last 24 hours): Temp Pulse Resp BP Pulse Ox 99.9 F H 86 17 121/68 97 05/25/17 16:00 05/25/17 18:00 05/25/17 18:00 05/25/17 18:00 05/25/17 18:00 Intake and Output: 05/25/17 05/26/17 18:59 06:59 Intake Total 1940 Output Total 1000 Balance 940 - Medications Medications: Current Medications Allopurinol (Zyloprim) 100 mg PO DAILY [facility] Last Admin: 05/25/17 08:24 Dose: 100 mg Doxercalciferol (Hectorol) 2 mcg IV MWF [facility] Stop: 06/01/17 23:59 Last Admin: 05/25/17 15:45 Dose: 2 mcg Epoetin Junior (Procrit) 10,000 unit IV MWF [facility] Stop: 06/01/17 23:59 Last Admin: 05/25/17 16:59 Dose: Not Given Iron Sucrose 100 mg/ Sodium (Chloride) 105 mls @ 105 mls/hr IVPB DAILY [facility] Stop: 05/29/17 14:31 Last Admin: 05/25/17 14:01 Dose: 105 mls/hr Pantoprazole Sodium (Protonix Ec Tab) 40 mg PO DAILY [facility] Last Admin: 05/25/17 08:24 Dose: 40 mg Sevelamer Carbonate (Renvela) 1.6 gm PO TIDWM [facility] Last Admin: 05/25/17 17:00 Dose: 1.6 gm Vitamin B Complex/Vit C/Folic Acid (Nephro-Juancarlos) 1 tab PO DAILY [facility] Last Admin: 05/25/17 08:24 Dose: 1 tab - Labs Labs: 05/25/17 04:35 05/25/17 04:35 PT 11.7 Seconds (9.8-13.1) 05/24/17 13:30 INR 1.1 (0.9-1.2) 05/24/17 13:30 APTT 27.6 Seconds (25.6-37.1) 05/24/17 13:30
[2017-05-25] MEDS ORDERED: methylPREDNISolone 40 MG in Sodium Chloride 0.9% 50 ML IVPB STA (20:31)
--- NOTE | 2017-05-25 21:04 | PN ---
ENDOCRINOLOGY FOLLOWUP NOTE DATE: LOCATION: Room 430, ICU. SUBJECTIVE: This is a 71-year-old male with recent acute renal failure on the background of underlying chronic kidney disease presenting here with marked hyperkalemia and metabolic acidosis and also supervening symptomatic hypoglycemia as noted thereof. His glucose values are much improved overnight and the latest glucose levels have ranged from 87 to 98 and 101 and 116 mg/dL. So at this time, we will continue the present medical management and encourage a higher protein intake as noted. We will hold off any insulin coverage scale nor any resumption of any basal insulin unless indicated. We will obtain serial chemistries and supplement accordingly as needed. We will follow. Roseanne Mccollum MD
--- NOTE | 2017-05-26 00:28 | CON ---
FOLLOWUP RENAL CONSULTATION LOCATION: The patient is located in room 430, bed 1. REQUESTED BY: Rohan Culver MD REASON FOR FOLLOWUP: Renal failure and for continuation of hemodialysis. HISTORY OF PRESENT ILLNESS: The patient is a 71-year-old elderly male with history of longstanding hypertension, diabetes, hyperlipidemia, was admitted with chief complaints of hypoglycemia, tremors, nausea, abdominal pain and vomiting. The patient was found to have elevated creatinine, low H and H and started on hemodialysis on Thursday. The patient is feeling much better, not in acute distress. Denies any headache or dizziness. Denies any chest pain or palpitations. Denies any fever or cough. Denies any abdominal pain. The patient does complaints of pain and swelling of the both knee joints, left more than the right and tenderness of the both knee joints, present on the left more than right. PHYSICAL EXAMINATION VITAL SIGNS: As follows; blood pressure 121/68, pulse 86, respirations 17, temperature 99.9, and saturation 97%. Height is 5 feet 6 inches and weight is 169 pounds. GENERAL: The patient is a 71-years old elderly male, well built, well nourished, and not in acute distress. HEENT: Pupils are normal and reactive to light and accommodation. Conjunctivae pink. Sclerae anicteric. Tongue is moist. Trachea is midline. LUNGS: Symmetric on both sides. Bilateral breath sounds present. Clear on auscultation. CARDIOVASCULAR: [place] at the fifth intercostal space, midclavicular line, S1 and S2 audible. No murmur. No gallop. ABDOMEN: Normal in appearance. Soft and tympanic. No guarding. No rigidity. No hepatosplenomegaly. CENTRAL NERVOUS SYSTEM: The patient is alert, awake, and oriented x3. Nonfocal on examination. Cranial nerves II through XII grossly intact. Sensory and motor systems is within normal limits. EXTREMITIES: No cyanosis. No clubbing. No edema. The patient has tenderness in both knee joints and left knee joint is warm to touch and tenderness on palpation on present. CURRENT MEDICATIONS: Include as follows: Hectorol 2 mcg IV 3 times a week, iron 100 mg daily, Nephro-Juancarlos 1 tablet daily, Procrit 10, 000 units 3 times a week, Protonix 40 mg p.o. daily, Renvela 1.6 g p.o. t.i.d. and allopurinol 100 mg p.o. daily. LABORATORY DATA: Include as follows: As of 05/25/2017; WBC 8.3, hemoglobin 9.5, hematocrit is 28, platelets 60. Sodium 132, potassium 4.6, chloride 95, CO2 of 24, BUN 91, creatinine 8.6, glucose is 87, calcium 6.9, total bili 0.8, AST 53, ALT 50, alkaline phosphatase is 82. Total protein 5.7. Albumin is 3.0. B12 is 332. Folic acid 6.6, TSH 0.96, serum cortisol 19.4. HIV 1 and 2 antibody was negative and C. diff toxin was negative. Hepatitis B surface antigen negative and surface antibody is negative, core antibody is negative. Hep C antibody is negative. Ultrasound of the kidneys and bladder as of 05/23/2017, right kidney measures 11.3 x 6.2 x 6.8 and echogenic focus 5 x 17 x 12 mm likely solitarily confluent non-obstructing renal calculus. Incidental findings; simple cyst, lower pole, 1.1 x 1.7 cm. Left kidney, 10.4 x 6.1 cm, echogenic focus, mid pole region, 0.4 x 1.2 cm, consistent with non-obstructing calculi. Ultrasound of the bladder impression, nondiagnostic assessment of the urinary bladder and pelvic ascites. SUMMARY: The patient is a 71-year-old elderly male with history of hypertension, diabetes with back pain was admitted with nausea, vomiting, tremors and elevated BUN and creatinine, low H and H, navicular platelets and status post transfusion of 2 units of packed RBCs yesterday with bilateral knee joint pains and local area of temperature on the left knee. 1. Renal failure, etiology is not clear. Acute on chronic kidney disease versus end-stage renal disease. 2. Anemia. 3. Thrombocytopenia, rule out heparin-induced thrombocytopenia, doubt hemolytic uremic syndrome and thrombotic thrombocytopenic purpura as peripheral smear is not consistent with anemia with schistocytes as per the hematology evaluation. 4. Secondary hyperparathyroidism. 5. Hypertension. 6. Diabetes, status post hypoglycemia, now blood sugars are under control. Consider to discontinue D10 and continue monitor sugars and repeat BMP and CBC in a.m. and phosphorus level. 7. We will continue monitor urine output. If renal function does not improve, the patient may need Perm-A-Cath placement for continuation of the hemodialysis. 8. We will continue Epogen, continue Renvela, continue Nephrocaps. We will follow with you. Thank you for allowing me to participate in your patient's care. The patient underwent hemodialysis today without any complications, had ultrafiltration about 1 liter. Naveen Schwartz MD
[2017-05-26 05:33] LABS: BASO % 0.2 % (0.0-2.0); EOS % 0.4 % (0.0-4.0); HEMATOCRIT 28.2 % (35.0-51.0); LYMPH % 11.5 % (20.0-40.0); MEAN CELL VOLUME 90.8 fl (80.0-94.0); MEAN CORPUSCULAR HEMOGLOBIN 31.2 pg (27.0-31.0); MEAN CORPUSCULAR HGB CONC 34.3 g/dL (33.0-37.0); MEAN PLATELET VOLUME 11.1 fl (7.2-11.7); MONO # 0.4 K/uL (0.0-0.8); MONO % 4.8 % (0.0-10.0); NEUT # 7.1 K/uL (1.8-7.0); NEUT % 83.1 % (50.0-75.0); RED CELL DISTRIBUTION WIDTH 17.5 % (11.5-14.5); WHITE BLOOD COUNT 8.5 K/uL (4.8-10.8)
[2017-05-26 05:37] LABS: ALB/GLOB RATIO 1.1 (1.0-2.1); BILIRUBIN,TOTAL 0.7 mg/dl (0.2-1.3); CALCIUM 6.7 mg/dL (8.4-10.2); TOTAL PROTEIN 5.8 G/DL (6.3-8.2)
[2017-05-26 05:51] LABS: POTASSIUM 5.9 MMOL/L (3.6-5.0)
[2017-05-26] MEDS ORDERED: Sod Polystyrene Sulf 15 gm/60 ml Oral Susp PO STA (06:39)
[2017-05-26] MEDS ORDERED: Sod Polystyrene Sulf 15 gm/60 ml Oral Susp PO ONE (08:19)
[2017-05-26] MEDS: Multivitamin Vitamin B Complex (Nephro-Vite) Tab PO SCH (08:32)
[2017-05-26] MEDS: Pantoprazole 40 mg EC Tab PO SCH (08:32)
[2017-05-26] MEDS: Sevelamer Carb 0.8 gm/Packet PO SCH ×3 (08:33→16:29)
--- NOTE | 2017-05-26 09:54 | CP.CCUPN ---
<Raquel Coombs - Last Filed: 05/26/17 11:53> CCU Subjective - Physician Review Subjective (Free Text): 05/26/17 11:53 Patient seen and examined at bedside. Awake, alert, verbal. Denies SOB, chest pain, nausea, weakness or dizziness. Has complaint of left knee pain. CCU Objective - Vital Signs / Intake & Output Vital Signs (Last 4 hours): Vital Signs Temp Pulse Resp BP Pulse Ox 05/26/17 08:00 97.8 F 93 H 19 146/65 95 05/26/17 06:00 98.2 F 82 15 125/68 95 Intake and Output (Last 8hrs): Intake & Output 05/25/17 05/26/17 05/26/17 22:59 06:59 14:59 Intake Total 1900 180 Output Total 1000 380 Balance 900 -200 Intake: IV 1500 130 Intake, Piggyback 50 Oral 400 Output: Urine 380 Urethral (Patel) 380 Ultrafiltrate 1000 Other: # Bowel Movements 2 1 - Physical Exam Head: Positive for: Normocephalic Pupils: Positive for: PERRL Extroacular Muscles: Positive for: EOMI Conjunctiva: Positive for: Normal. Negative for: Icteric Mouth: Positive for: Moist Mucous Membranes Neck: Positive for: Normal Range of Motion. Negative for: JVD Respiratory/Chest: Positive for: Clear to Auscultation, Decreased Breath Sounds. Negative for: Accessory Muscle Use, Wheezes Cardiovascular: Positive for: Regular Rate and Rhythm. Negative for: Murmurs, Rub Abdomen: Positive for: Normal Bowel Sounds. Negative for: Tenderness, Distention Genitourinary Male: Positive for: Other (patel catheter in place-draining clear yellow urine) Upper Extremity: Positive for: NORMAL PULSES (right hand IV and left antecubital IV present) Lower Extremity: Positive for: NORMAL PULSES (mild stasis dermatitis ). Negative for: CALF TENDERNESS, Cyanosis Neurological: Positive for: GCS=15, Motor Func Grossly Intact, Normal Sensory Function Skin: Positive for: Warm. Negative for: Rashes Psychiatric: Positive for: Alert - Medications Active Medications: Active Medications Generic Name Dose Route Start Last Admin Trade Name Freq PRN Reason Stop Dose Admin Allopurinol 100 mg 05/24/17 09:00 05/26/17 08:32 Zyloprim PO 100 mg DAILY ROSS Administration Doxercalciferol 2 mcg 05/25/17 12:00 05/25/17 15:45 Hectorol IV 06/01/17 23:59 2 mcg MWF ROSS Administration Epoetin Junior 10,000 unit 05/25/17 11:30 05/25/17 16:59 Procrit IV 06/01/17 23:59 Not Given MWF ROSS Iron Sucrose 100 mg/ Sodium 105 mls @ 105 mls/hr 05/24/17 14:30 05/26/17 08: 33 Chloride IVPB 05/29/17 14:31 105 mls/hr DAILY ROSS Administration Insulin Human Regular 0 units 05/26/17 11:30 Humulin R SC ACHS [facility] Protocol Pantoprazole Sodium 40 mg 05/24/17 09:00 05/26/17 08:32 Protonix Ec Tab PO 40 mg DAILY ROSS Administration Sevelamer Carbonate 1.6 gm 05/24/17 17:00 05/26/17 08:33 Renvela PO 1.6 gm TIDWM ROSS Administration Vitamin B Complex/Vit C/Folic Acid 1 tab 05/24/17 13:45 05/26/17 08:32 Nephro-Juancarlos PO 1 tab DAILY ROSS Administration - Patient Studies Lab Studies: Microbiology Studies 05/24/17 06:30 Urine Culture - Final Urine,Patel No Growth (<1,000 CFU/ML) Lab Studies 05/26/17 05/26/17 05/26/17 Range/Units 05:47 04:30 04:30 WBC 8.5 (4.8-10.8) K/uL RBC 3.10 L (4.40-5.90) Mil/uL Hgb 9.7 L (12.0-18.0) g/dL Hct 28.2 L (35.0-51.0) % MCV 90.8 (80.0-94.0) fl MCH 31.2 H (27.0-31.0) pg MCHC 34.3 (33.0-37.0) g/dL RDW 17.5 H (11.5-14.5) % Plt Count 47 L (130-400) K/uL MPV 11.1 (7.2-11.7) fl Neut % (Auto) 83.1 H (50.0-75.0) % Lymph % (Auto) 11.5 L (20.0-40.0) % Bonner % (Auto) 4.8 (0.0-10.0) % Eos % (Auto) 0.4 (0.0-4.0) % Baso % (Auto) 0.2 (0.0-2.0) % Neut # 7.1 H (1.8-7.0) K/uL Lymph # 1.0 (1.0-4.3) K/uL Bonner # 0.4 (0.0-0.8) K/uL Eos # 0.0 (0.0-0.7) K/uL Baso # 0.0 (0.0-0.2) K/uL Haptoglobin (43-212) mg/dL Sodium 127 L (132-148) mmol/l Potassium 5.9 H (3.6-5.0) MMOL/L Chloride 91 L (98-107) mmol/L Carbon Dioxide 23 (22-30) mmol/L Anion Gap 19 (10-20) BUN 68 H (9-20) mg/dl Creatinine 7.3 H (0.8-1.5) mg/dL Est GFR ( Amer) 9 Est GFR (Non-Af Amer) 7 POC Glucose (mg/dL) 296 H (65-110) mg/dL Random Glucose 243 H (75-110) mg/dL Calcium 6.7 L (8.4-10.2) mg/dL Total Bilirubin 0.7 (0.2-1.3) mg/dl AST 53 (17-59) U/L ALT 53 (21-72) U/L Alkaline Phosphatase 90 (38-126) U/L Total Protein 5.8 L (6.3-8.2) G/DL Total Protein (PEP) (6.1-8.1) g/dL Albumin 3.1 L (3.5-5.0) g/dL Globulin 2.8 (2.2-3.9) gm/dL Albumin/Globulin Ratio 1.1 (1.0-2.1) Folate ng/mL PTH Intact Whole Molec (14-64) pg/mL Cortisol AM Sample (4.46-22.7) ug/dL C. difficile Ag & Toxin (NEGATIVE) Hep Bs Antigen (NEGATIVE) Hep B Core IgM Ab (NEGATIVE) Hepatitis C Antibody (NEGATIVE) HIV 1&2 Antibody Screen (NEGATIVE) 05/25/17 05/25/17 05/25/17 Range/Units 22:55 17:35 16:16 WBC (4.8-10.8) K/uL RBC (4.40-5.90) Mil/uL Hgb (12.0-18.0) g/dL Hct (35.0-51.0) % MCV (80.0-94.0) fl MCH (27.0-31.0) pg MCHC (33.0-37.0) g/dL RDW (11.5-14.5) % Plt Count (130-400) K/uL MPV (7.2-11.7) fl Neut % (Auto) (50.0-75.0) % Lymph % (Auto) (20.0-40.0) % Bonner % (Auto) (0.0-10.0) % Eos % (Auto) (0.0-4.0) % Baso % (Auto) (0.0-2.0) % Neut # (1.8-7.0) K/uL Lymph # (1.0-4.3) K/uL Bonner # (0.0-0.8) K/uL Eos # (0.0-0.7) K/uL Baso # (0.0-0.2) K/uL Haptoglobin (43-212) mg/dL Sodium (132-148) mmol/l Potassium (3.6-5.0) MMOL/L Chloride (98-107) mmol/L Carbon Dioxide (22-30) mmol/L Anion Gap (10-20) BUN (9-20) mg/dl Creatinine (0.8-1.5) mg/dL Est GFR ( Amer) Est GFR (Non-Af Amer) POC Glucose (mg/dL) 190 H 116 H (65-110) mg/dL Random Glucose (75-110) mg/dL Calcium (8.4-10.2) mg/dL Total Bilirubin (0.2-1.3) mg/dl AST (17-59) U/L ALT (21-72) U/L Alkaline Phosphatase (38-126) U/L Total Protein (6.3-8.2) G/DL Total Protein (PEP) (6.1-8.1) g/dL Albumin (3.5-5.0) g/dL Globulin (2.2-3.9) gm/dL Albumin/Globulin Ratio (1.0-2.1) Folate ng/mL PTH Intact Whole Molec (14-64) pg/mL Cortisol AM Sample (4.46-22.7) ug/dL C. difficile Ag & Toxin Negative (NEGATIVE) Hep Bs Antigen (NEGATIVE) Hep B Core IgM Ab (NEGATIVE) Hepatitis C Antibody (NEGATIVE) HIV 1&2 Antibody Screen (NEGATIVE) 05/25/17 05/25/17 05/25/17 Range/Units 11:14 04:35 04:35 WBC (4.8-10.8) K/uL RBC (4.40-5.90) Mil/uL Hgb (12.0-18.0) g/dL Hct (35.0-51.0) % MCV (80.0-94.0) fl MCH (27.0-31.0) pg MCHC (33.0-37.0) g/dL RDW (11.5-14.5) % Plt Count (130-400) K/uL MPV (7.2-11.7) fl Neut % (Auto) (50.0-75.0) % Lymph % (Auto) (20.0-40.0) % Bonner % (Auto) (0.0-10.0) % Eos % (Auto) (0.0-4.0) % Baso % (Auto) (0.0-2.0) % Neut # (1.8-7.0) K/uL Lymph # (1.0-4.3) K/uL Bonner # (0.0-0.8) K/uL Eos # (0.0-0.7) K/uL Baso # (0.0-0.2) K/uL Haptoglobin (43-212) mg/dL Sodium (132-148) mmol/l Potassium (3.6-5.0) MMOL/L Chloride (98-107) mmol/L Carbon Dioxide (22-30) mmol/L Anion Gap (10-20) BUN (9-20) mg/dl Creatinine (0.8-1.5) mg/dL Est GFR ( Amer) Est GFR (Non-Af Amer) POC Glucose (mg/dL) 98 (65-110) mg/dL Random Glucose (75-110) mg/dL Calcium (8.4-10.2) mg/dL Total Bilirubin (0.2-1.3) mg/dl AST (17-59) U/L ALT (21-72) U/L Alkaline Phosphatase (38-126) U/L Total Protein (6.3-8.2) G/DL Total Protein (PEP) (6.1-8.1) g/dL Albumin (3.5-5.0) g/dL Globulin (2.2-3.9) gm/dL Albumin/Globulin Ratio (1.0-2.1) Folate 6.6 ng/mL PTH Intact Whole Molec (14-64) pg/mL Cortisol AM Sample 19.4 (4.46-22.7) ug/dL C. difficile Ag & Toxin (NEGATIVE) Hep Bs Antigen (NEGATIVE) Hep B Core IgM Ab (NEGATIVE) Hepatitis C Antibody (NEGATIVE) HIV 1&2 Antibody Screen Negative (NEGATIVE) 05/24/17 05/23/17 05/23/17 Range/Units 10:00 21:20 21:20 WBC (4.8-10.8) K/uL RBC (4.40-5.90) Mil/uL Hgb (12.0-18.0) g/dL Hct (35.0-51.0) % MCV (80.0-94.0) fl MCH (27.0-31.0) pg MCHC (33.0-37.0) g/dL RDW (11.5-14.5) % Plt Count (130-400) K/uL MPV (7.2-11.7) fl Neut % (Auto) (50.0-75.0) % Lymph % (Auto) (20.0-40.0) % Bonner % (Auto) (0.0-10.0) % Eos % (Auto) (0.0-4.0) % Baso % (Auto) (0.0-2.0) % Neut # (1.8-7.0) K/uL Lymph # (1.0-4.3) K/uL Bonner # (0.0-0.8) K/uL Eos # (0.0-0.7) K/uL Baso # (0.0-0.2) K/uL Haptoglobin 157 (43-212) mg/dL Sodium (132-148) mmol/l Potassium (3.6-5.0) MMOL/L Chloride (98-107) mmol/L Carbon Dioxide (22-30) mmol/L Anion Gap (10-20) BUN (9-20) mg/dl Creatinine (0.8-1.5) mg/dL Est GFR ( Amer) Est GFR (Non-Af Amer) POC Glucose (mg/dL) (65-110) mg/dL Random Glucose (75-110) mg/dL Calcium (8.4-10.2) mg/dL Total Bilirubin (0.2-1.3) mg/dl AST (17-59) U/L ALT (21-72) U/L Alkaline Phosphatase (38-126) U/L Total Protein (6.3-8.2) G/DL Total Protein (PEP) (6.1-8.1) g/dL Albumin (3.5-5.0) g/dL Globulin (2.2-3.9) gm/dL Albumin/Globulin Ratio (1.0-2.1) Folate ng/mL PTH Intact Whole Molec 147 H (14-64) pg/mL Cortisol AM Sample (4.46-22.7) ug/dL C. difficile Ag & Toxin (NEGATIVE) Hep Bs Antigen Negative (NEGATIVE) Hep B Core IgM Ab Negative (NEGATIVE) Hepatitis C Antibody Negative (NEGATIVE) HIV 1&2 Antibody Screen (NEGATIVE) 05/23/17 Range/Units 21:20 WBC (4.8-10.8) K/uL RBC (4.40-5.90) Mil/uL Hgb (12.0-18.0) g/dL Hct (35.0-51.0) % MCV (80.0-94.0) fl MCH (27.0-31.0) pg MCHC (33.0-37.0) g/dL RDW (11.5-14.5) % Plt Count (130-400) K/uL MPV (7.2-11.7) fl Neut % (Auto) (50.0-75.0) % Lymph % (Auto) (20.0-40.0) % Bonner % (Auto) (0.0-10.0) % Eos % (Auto) (0.0-4.0) % Baso % (Auto) (0.0-2.0) % Neut # (1.8-7.0) K/uL Lymph # (1.0-4.3) K/uL Bonner # (0.0-0.8) K/uL Eos # (0.0-0.7) K/uL Baso # (0.0-0.2) K/uL Haptoglobin (43-212) mg/dL Sodium (132-148) mmol/l Potassium (3.6-5.0) MMOL/L Chloride (98-107) mmol/L Carbon Dioxide (22-30) mmol/L Anion Gap (10-20) BUN (9-20) mg/dl Creatinine (0.8-1.5) mg/dL Est GFR ( Amer) Est GFR (Non-Af Amer) POC Glucose (mg/dL) (65-110) mg/dL Random Glucose (75-110) mg/dL Calcium (8.4-10.2) mg/dL Total Bilirubin (0.2-1.3) mg/dl AST (17-59) U/L ALT (21-72) U/L Alkaline Phosphatase (38-126) U/L Total Protein (6.3-8.2) G/DL Total Protein (PEP) 6.1 (6.1-8.1) g/dL Albumin (3.5-5.0) g/dL Globulin (2.2-3.9) gm/dL Albumin/Globulin Ratio (1.0-2.1) Folate ng/mL PTH Intact Whole Molec (14-64) pg/mL Cortisol AM Sample (4.46-22.7) ug/dL C. difficile Ag & Toxin (NEGATIVE) Hep Bs Antigen (NEGATIVE) Hep B Core IgM Ab (NEGATIVE) Hepatitis C Antibody (NEGATIVE) HIV 1&2 Antibody Screen (NEGATIVE) Laboratory Results - last 24 hr 05/23/17 05/23/17 05/23/17 21:20 21:20 21:20 WBC RBC Hgb Hct MCV MCH MCHC RDW Plt Count MPV Neut % (Auto) Lymph % (Auto) Bonner % (Auto) Eos % (Auto) Baso % (Auto) Neut # Lymph # Bonner # Eos # Baso # Haptoglobin Sodium Potassium Chloride Carbon Dioxide Anion Gap BUN Creatinine Est GFR ( Amer) Est GFR (Non-Af Amer) POC Glucose (mg/dL) Random Glucose Calcium Total Bilirubin AST ALT Alkaline Phosphatase Total Protein Total Protein (PEP) 6.1 Albumin Globulin Albumin/Globulin Ratio Folate PTH Intact Whole Molec 147 H Cortisol AM Sample C. difficile Ag & Toxin Hep Bs Antigen Negative Hep B Core IgM Ab Negative Hepatitis C Antibody Negative HIV 1&2 Antibody Screen 05/24/17 05/25/17 05/25/17 10:00 04:35 04:35 WBC RBC Hgb Hct MCV MCH MCHC RDW Plt Count MPV Neut % (Auto) Lymph % (Auto) Bonner % (Auto) Eos % (Auto) Baso % (Auto) Neut # Lymph # Bonner # Eos # Baso # Haptoglobin 157 Sodium Potassium Chloride Carbon Dioxide Anion Gap BUN Creatinine Est GFR ( Amer) Est GFR (Non-Af Amer) POC Glucose (mg/dL) Random Glucose Calcium Total Bilirubin AST ALT Alkaline Phosphatase Total Protein Total Protein (PEP) Albumin Globulin Albumin/Globulin Ratio Folate 6.6 PTH Intact Whole Molec Cortisol AM Sample 19.4 C. difficile Ag & Toxin Hep Bs Antigen Hep B Core IgM Ab Hepatitis C Antibody HIV 1&2 Antibody Screen Negative 05/25/17 05/25/17 05/25/17 11:14 16:16 17:35 WBC RBC Hgb Hct MCV MCH MCHC RDW Plt Count MPV Neut % (Auto) Lymph % (Auto) Bonner % (Auto) Eos % (Auto) Baso % (Auto) Neut # Lymph # Bonner # Eos # Baso # Haptoglobin Sodium Potassium Chloride Carbon Dioxide Anion Gap BUN Creatinine Est GFR ( Amer) Est GFR (Non-Af Amer) POC Glucose (mg/dL) 98 116 H Random Glucose Calcium Total Bilirubin AST ALT Alkaline Phosphatase Total Protein Total Protein (PEP) Albumin Globulin Albumin/Globulin Ratio Folate PTH Intact Whole Molec Cortisol AM Sample C. difficile Ag & Toxin Negative Hep Bs Antigen Hep B Core IgM Ab Hepatitis C Antibody HIV 1&2 Antibody Screen 05/25/17 05/26/17 05/26/17 22:55 04:30 04:30 WBC 8.5 RBC 3.10 L Hgb 9.7 L Hct 28.2 L MCV 90.8 MCH 31.2 H MCHC 34.3 RDW 17.5 H Plt Count 47 L MPV 11.1 Neut % (Auto) 83.1 H Lymph % (Auto) 11.5 L Bonner % (Auto) 4.8 Eos % (Auto) 0.4 Baso % (Auto) 0.2 Neut # 7.1 H Lymph # 1.0 Bonner # 0.4 Eos # 0.0 Baso # 0.0 Haptoglobin Sodium 127 L Potassium 5.9 H Chloride 91 L Carbon Dioxide 23 Anion Gap 19 BUN 68 H Creatinine 7.3 H Est GFR ( Amer) 9 Est GFR (Non-Af Amer) 7 POC Glucose (mg/dL) 190 H Random Glucose 243 H Calcium 6.7 L Total Bilirubin 0.7 AST 53 ALT 53 Alkaline Phosphatase 90 Total Protein 5.8 L Total Protein (PEP) Albumin 3.1 L Globulin 2.8 Albumin/Globulin Ratio 1.1 Folate PTH Intact Whole Molec Cortisol AM Sample C. difficile Ag & Toxin Hep Bs Antigen Hep B Core IgM Ab Hepatitis C Antibody HIV 1&2 Antibody Screen 05/26/17 05:47 WBC RBC Hgb Hct MCV MCH MCHC RDW Plt Count MPV Neut % (Auto) Lymph % (Auto) Bonner % (Auto) Eos % (Auto) Baso % (Auto) Neut # Lymph # Bonner # Eos # Baso # Haptoglobin Sodium Potassium Chloride Carbon Dioxide Anion Gap BUN Creatinine Est GFR ( Amer) Est GFR (Non-Af Amer) POC Glucose (mg/dL) 296 H Random Glucose Calcium Total Bilirubin AST ALT Alkaline Phosphatase Total Protein Total Protein (PEP) Albumin Globulin Albumin/Globulin Ratio Folate PTH Intact Whole Molec Cortisol AM Sample C. difficile Ag & Toxin Hep Bs Antigen Hep B Core IgM Ab Hepatitis C Antibody HIV 1&2 Antibody Screen EKG/Cardiology Studies: Cardiology / EKG Studies 05/26/17 09:39 EKG [ELECTROCARDIOGRAM] Routine Comment: Mode Of Transportation: PORTABLE Reason For Exam: hyperkalemia PRE OP:: N Does Patient Have a Pacemaker?: No Review of Systems - Review of Systems All systems: reviewed and no additional remarkable complaints except (for left knee pain) Critical Care Progress Note - Extremities/Vascular Does the Patient have a Central Venous Catheter?: Yes Insertion Site: Femoral Vein (right - for hemodialysis access) Does the Patient have a Patel Catheter?: Yes Does the Patient need a Patel Catheter?: No - Prophylaxis GI Prophylaxis GI: PPI - Prophylaxis DVT Prophylaxis DVT: SCDs - Nutrition Nutrition: Nutrition Category Date Time Status Renal Diet [DIET] Diets 05/24/17 Dinner Active Assessment/Plan - Assessment and Plan (Free Text) Assessment: 71 yr old M with PMHx of NIDDM Type 2, CKD, HTN and gout admitted to ICU for Acute on CKD requiring first time HD, metabolic acidosis, hyperkalemia and hypoglycemia. Mteabolic acidosis has resolved. Patient is now on hemodialysis schedule MWF. 1. Acute on CKD 2. Hyperkalemia 3. Anemia of chronic disease 4. DM Type 2- uncontrolled 5. Acute Thrombocytopenia of unknown etiology 6. HTN-controlled 7. Gout- controlled 8. GI prophylaxis 9. DVT prophylaxis Plan 1. Bun/Cr 68/7.3-slowly improving s/p 2 sessions HD via right femoral line . HD scheduled MWF . Nephrology on board, will follow recommendations. 2. EKG normal sinus with prlonged QTc 484, Kayexalate 15mg this AM, f/u BMP at noon. Monitor K+ 3. stable, H/H 9.7/28.2 s/p 2 units leukocyte reduced pRBC's transfused 05/24/17 , c/w Venofer 100mg IV QD x 5 days 4. pt hyperglycemic this AM, HbA1c 8.2 on 05/24/17, moderate CHO diet, insulin low dose coverage scale SC ACHS, endocrinology on board, will follow recommendations 5. plts 47 this AM (137 on 05/23/17) coags wnl, retic ct 1.8, haptoglobin 157, total bilirubin wnl. Heme/onc on board, will follow recommendations 6. chronic, off of home med, continue to monitor BP 7. chronic, continue Allopurinol 100mg PO QD 8. Protonix 40mg PO QD 9. SCD's for now , avoid Heparin or Lovenox as pt has acute thrombocytopenia of unknown etiology - Date & Time Date: 05/26/17 Time: 07:40 <Alex Kulkarni - Last Filed: 05/26/17 17:04> CCU Objective - Vital Signs / Intake & Output Vital Signs (Last 4 hours): Vital Signs Temp Pulse Resp BP Pulse Ox 05/26/17 16:00 98.1 F 91 H 21 122/69 94 L 05/26/17 14:00 102 H 24 130/78 96 Intake and Output (Last 8hrs): Intake & Output 05/26/17 05/26/17 05/26/17 06:59 14:59 22:59 Intake Total 180 500 Output Total 380 Balance -200 500 Intake: IV 130 Intake, Piggyback 50 100 Oral 400 Output: Urine 380 Urethral (Patel) 380 Other: # Bowel Movements 1 1 - Medications Active Medications: Active Medications Generic Name Dose Route Start Last Admin Trade Name Pippa PRN Reason Stop Dose Admin Allopurinol 100 mg 05/24/17 09:00 05/26/17 08:32 Zyloprim PO 100 mg DAILY ROSS Administration Doxercalciferol 2 mcg 05/25/17 12:00 05/25/17 15:45 Hectorol IV 06/01/17 23:59 2 mcg MWF ROSS Administration Epoetin Junior 10,000 unit 05/25/17 11:30 05/25/17 16:59 Procrit IV 06/01/17 23:59 Not Given MWF ROSS Iron Sucrose 100 mg/ Sodium 105 mls @ 105 mls/hr 05/24/17 14:30 05/26/17 08: 33 Chloride IVPB 05/29/17 14:31 105 mls/hr DAILY ROSS Administration Insulin Human Regular 0 units 05/26/17 11:30 05/26/17 16:28 Humulin R SC 5 units ACHS ROSS Administration Protocol Lidocaine 1 ea 05/26/17 12:45 05/26/17 13:43 Lidoderm TD 1 ea DAILY ROSS Administration Pantoprazole Sodium 40 mg 05/24/17 09:00 05/26/17 08:32 Protonix Ec Tab PO 40 mg DAILY ROSS Administration Sevelamer Carbonate 1.6 gm 05/24/17 17:00 05/26/17 16:29 Renvela PO 1.6 gm TIDWM ROSS Administration Vitamin B Complex/Vit C/Folic Acid 1 tab 05/24/17 13:45 05/26/17 08:32 Nephro-Juancarlos PO 1 tab DAILY ROSS Administration - Patient Studies Lab Studies: Lab Studies 05/26/17 05/26/17 05/26/17 Range/Units 12:07 12:00 11:21 WBC (4.8-10.8) K/uL RBC (4.40-5.90) Mil/uL Hgb (12.0-18.0) g/dL Hct (35.0-51.0) % MCV (80.0-94.0) fl MCH (27.0-31.0) pg MCHC (33.0-37.0) g/dL RDW (11.5-14.5) % Plt Count (130-400) K/uL MPV (7.2-11.7) fl Neut % (Auto) (50.0-75.0) % Lymph % (Auto) (20.0-40.0) % Bonner % (Auto) (0.0-10.0) % Eos % (Auto) (0.0-4.0) % Baso % (Auto) (0.0-2.0) % Neut # (1.8-7.0) K/uL Lymph # (1.0-4.3) K/uL Bonner # (0.0-0.8) K/uL Eos # (0.0-0.7) K/uL Baso # (0.0-0.2) K/uL Haptoglobin (43-212) mg/dL Sodium 126 L (132-148) mmol/l Potassium 4.8 (3.6-5.0) MMOL/L Chloride 90 L (98-107) mmol/L Carbon Dioxide 17 L (22-30) mmol/L Anion Gap 24 H (10-20) BUN 78 H (9-20) mg/dl Creatinine 8.0 H* (0.8-1.5) mg/dL Est GFR ( Amer) 8 Est GFR (Non-Af Amer) 7 POC Glucose (mg/dL) 497 H* 478 H* (65-110) mg/dL Random Glucose 436 H* D (75-110) mg/dL Calcium 6.5 L (8.4-10.2) mg/dL Total Bilirubin (0.2-1.3) mg/dl AST (17-59) U/L ALT (21-72) U/L Alkaline Phosphatase (38-126) U/L Total Protein (6.3-8.2) G/DL Albumin (3.5-5.0) g/dL Globulin (2.2-3.9) gm/dL Albumin/Globulin Ratio (1.0-2.1) C. difficile Ag & Toxin (NEGATIVE) 05/26/17 05/26/17 05/26/17 Range/Units 05:47 04:30 04:30 WBC 8.5 (4.8-10.8) K/uL RBC 3.10 L (4.40-5.90) Mil/uL Hgb 9.7 L (12.0-18.0) g/dL Hct 28.2 L (35.0-51.0) % MCV 90.8 (80.0-94.0) fl MCH 31.2 H (27.0-31.0) pg MCHC 34.3 (33.0-37.0) g/dL RDW 17.5 H (11.5-14.5) % Plt Count 47 L (130-400) K/uL MPV 11.1 (7.2-11.7) fl Neut % (Auto) 83.1 H (50.0-75.0) % Lymph % (Auto) 11.5 L (20.0-40.0) % Bonner % (Auto) 4.8 (0.0-10.0) % Eos % (Auto) 0.4 (0.0-4.0) % Baso % (Auto) 0.2 (0.0-2.0) % Neut # 7.1 H (1.8-7.0) K/uL Lymph # 1.0 (1.0-4.3) K/uL Bonner # 0.4 (0.0-0.8) K/uL Eos # 0.0 (0.0-0.7) K/uL Baso # 0.0 (0.0-0.2) K/uL Haptoglobin (43-212) mg/dL Sodium 127 L (132-148) mmol/l Potassium 5.9 H (3.6-5.0) MMOL/L Chloride 91 L (98-107) mmol/L Carbon Dioxide 23 (22-30) mmol/L Anion Gap 19 (10-20) BUN 68 H (9-20) mg/dl Creatinine 7.3 H (0.8-1.5) mg/dL Est GFR ( Amer) 9 Est GFR (Non-Af Amer) 7 POC Glucose (mg/dL) 296 H (65-110) mg/dL Random Glucose 243 H (75-110) mg/dL Calcium 6.7 L (8.4-10.2) mg/dL Total Bilirubin 0.7 (0.2-1.3) mg/dl AST 53 (17-59) U/L ALT 53 (21-72) U/L Alkaline Phosphatase 90 (38-126) U/L Total Protein 5.8 L (6.3-8.2) G/DL Albumin 3.1 L (3.5-5.0) g/dL Globulin 2.8 (2.2-3.9) gm/dL Albumin/Globulin Ratio 1.1 (1.0-2.1) C. difficile Ag & Toxin (NEGATIVE) 05/25/17 05/25/17 05/24/17 Range/Units 22:55 17:35 10:00 WBC (4.8-10.8) K/uL RBC (4.40-5.90) Mil/uL Hgb (12.0-18.0) g/dL Hct (35.0-51.0) % MCV (80.0-94.0) fl MCH (27.0-31.0) pg MCHC (33.0-37.0) g/dL RDW (11.5-14.5) % Plt Count (130-400) K/uL MPV (7.2-11.7) fl Neut % (Auto) (50.0-75.0) % Lymph % (Auto) (20.0-40.0) % Bonner % (Auto) (0.0-10.0) % Eos % (Auto) (0.0-4.0) % Baso % (Auto) (0.0-2.0) % Neut # (1.8-7.0) K/uL Lymph # (1.0-4.3) K/uL Bonner # (0.0-0.8) K/uL Eos # (0.0-0.7) K/uL Baso # (0.0-0.2) K/uL Haptoglobin 157 (43-212) mg/dL Sodium (132-148) mmol/l Potassium (3.6-5.0) MMOL/L Chloride (98-107) mmol/L Carbon Dioxide (22-30) mmol/L Anion Gap (10-20) BUN (9-20) mg/dl Creatinine (0.8-1.5) mg/dL Est GFR ( Amer) Est GFR (Non-Af Amer) POC Glucose (mg/dL) 190 H (65-110) mg/dL Random Glucose (75-110) mg/dL Calcium (8.4-10.2) mg/dL Total Bilirubin (0.2-1.3) mg/dl AST (17-59) U/L ALT (21-72) U/L Alkaline Phosphatase (38-126) U/L Total Protein (6.3-8.2) G/DL Albumin (3.5-5.0) g/dL Globulin (2.2-3.9) gm/dL Albumin/Globulin Ratio (1.0-2.1) C. difficile Ag & Toxin Negative (NEGATIVE) Laboratory Results - last 24 hr 05/24/17 05/25/17 05/25/17 10:00 17:35 22:55 WBC RBC Hgb Hct MCV MCH MCHC RDW Plt Count MPV Neut % (Auto) Lymph % (Auto) Bonner % (Auto) Eos % (Auto) Baso % (Auto) Neut # Lymph # Bonner # Eos # Baso # Haptoglobin 157 Sodium Potassium Chloride Carbon Dioxide Anion Gap BUN Creatinine Est GFR ( Amer) Est GFR (Non-Af Amer) POC Glucose (mg/dL) 190 H Random Glucose Calcium Total Bilirubin AST ALT Alkaline Phosphatase Total Protein Albumin Globulin Albumin/Globulin Ratio C. difficile Ag & Toxin Negative 05/26/17 05/26/17 05/26/17 04:30 04:30 05:47 WBC 8.5 RBC 3.10 L Hgb 9.7 L Hct 28.2 L MCV 90.8 MCH 31.2 H MCHC 34.3 RDW 17.5 H Plt Count 47 L MPV 11.1 Neut % (Auto) 83.1 H Lymph % (Auto) 11.5 L Bonner % (Auto) 4.8 Eos % (Auto) 0.4 Baso % (Auto) 0.2 Neut # 7.1 H Lymph # 1.0 Bonner # 0.4 Eos # 0.0 Baso # 0.0 Haptoglobin Sodium 127 L Potassium 5.9 H Chloride 91 L Carbon Dioxide 23 Anion Gap 19 BUN 68 H Creatinine 7.3 H Est GFR ( Amer) 9 Est GFR (Non-Af Amer) 7 POC Glucose (mg/dL) 296 H Random Glucose 243 H Calcium 6.7 L Total Bilirubin 0.7 AST 53 ALT 53 Alkaline Phosphatase 90 Total Protein 5.8 L Albumin 3.1 L Globulin 2.8 Albumin/Globulin Ratio 1.1 C. difficile Ag & Toxin 05/26/17 05/26/17 05/26/17 11:21 12:00 12:07 WBC RBC Hgb Hct MCV MCH MCHC RDW Plt Count MPV Neut % (Auto) Lymph % (Auto) Bonner % (Auto) Eos % (Auto) Baso % (Auto) Neut # Lymph # Bonner # Eos # Baso # Haptoglobin Sodium 126 L Potassium 4.8 Chloride 90 L Carbon Dioxide 17 L Anion Gap 24 H BUN 78 H Creatinine 8.0 H* Est GFR ( Amer) 8 Est GFR (Non-Af Amer) 7 POC Glucose (mg/dL) 478 H* 497 H* Random Glucose 436 H* D Calcium 6.5 L Total Bilirubin AST ALT Alkaline Phosphatase Total Protein Albumin Globulin Albumin/Globulin Ratio C. difficile Ag & Toxin EKG/Cardiology Studies: Cardiology / EKG Studies 05/26/17 09:39 EKG [ELECTROCARDIOGRAM] Routine Comment: Mode Of Transportation: PORTABLE Reason For Exam: hyperkalemia PRE OP:: N Does Patient Have a Pacemaker?: No Critical Care Progress Note - Nutrition Nutrition: Nutrition Category Date Time Status Renal Diet [DIET] Diets 05/24/17 Dinner Active Attending/Attestation - Attestation I have personally seen and examined this patient.: Yes I have fully participated in the care of the patient.: Yes I have reviewed all pertinent clinical information: Yes Notes (Text): 05/26/17 16:56 Today: Friday, May 26, 2017 The patient was Seen/interviewed and examined by me at the bedside during ICU round, Medical records reviewed and Management issues were discussed and formulated with the house staff. I have reviewed all the relevant clinical, laboratory, hemodynamic, radiographic data and medications Pain issues, skin care, head of the bed elevation, glycemic control were addressed. I concur with resident's assessment and plan of care as transcribed in Dr. Coombs note.
[2017-05-26] MEDS: Insulin Regular 100 units/ml SC SCH ×3 (11:28→22:13)
--- NOTE | 2017-05-26 11:48 | CARD ---
APPROVED REPORT EKG Measurement Heart [id number] <Conclusion> Normal sinus rhythm with sinus arrhythmia Prolonged QT Abnormal ECG
[2017-05-26] MEDS ORDERED: Insulin Detemir 100 Units/ml Inj SC STA (12:44)
--- NOTE | 2017-05-26 12:46 | RAD ---
PROCEDURE: Left Knee Radiographs. HISTORY: Pain. COMPARISON: Left knee radiographs 09/22/2015. FINDINGS: BONES: No fractures identified. No suspicious lytic or blastic changes seen focally. JOINTS: Medial femorotibial compartment is mildly narrowed compatible with degenerative joint disease. No significant osteophyte formation is evident or cortical sclerosis. Cortical sclerosis is however identified in the patellofemoral articulation as well as minimal osteophyte development compatible with degenerate joint disease further. There is a borderline suprapatellar bursa effusion. Extensive vascular calcifications are identified posterior to the knee once again. JOINT EFFUSION: Borderline suprapatellar bursa effusion appear OTHER FINDINGS: None. IMPRESSION: Limited degenerative joint changes seen in the medial femorotibial and patellofemoral articulations. No acute fracture dislocation identified.
--- NOTE | 2017-05-26 12:53 | RAD ---
PROCEDURE: Radiographs of the pelvis and bilateral hips HISTORY: hx of fall COMPARISON: None. FINDINGS: BONES: Pelvis: No suspicious lytic or blastic change identified or definite fracture. Right hip:Unremarkable. Left hip:Unremarkable. JOINTS: Symmetric bilateral hip joint cortical sclerosis is appreciated as well as joint space narrowing compatible with osteoarthritis mildly. No subluxation or dislocation bilaterally. . Sacroiliac Joints: [id number] bilateral sacroiliac joint degenerate changes are manifest by sclerosis of the articular surfaces. Pubic symphysis: Unremarkable. SOFT TISSUES: Patient status post Abdullahi catheterization apparently with a right femoral central venous dialysis catheter placed as well. The tips of the catheter terminating in the region of the right common iliac vein or possibly the inferior vena cava. Vascular calcification identified in the inferior pelvis soft tissues well as the bilateral groin regions. OTHER FINDINGS: None. IMPRESSION: No fracture dislocation of the bilateral hip joints with the pelvic ring intact. Degenerate changes are identified in the bilateral sacroiliac and hip joints as per above.
[2017-05-26 13:14] LABS: CALCIUM 6.5 mg/dL (8.4-10.2); POTASSIUM 4.8 MMOL/L (3.6-5.0)
[2017-05-26] MEDS: Lidocaine 5% Patch TD SCH (13:43)
--- NOTE | 2017-05-26 14:54 | CP.PCM.PN ---
Subjective - Date & Time of Evaluation Date of Evaluation: 05/26/17 Time of Evaluation: 12:15 - Subjective Subjective: No fever Denies CP no SOB no abd pain still with left knee pain on ROM Elevated Potassium Accucheck now shows elevated Glucose Objective - Vital Signs/Intake and Output Vital Signs (last 24 hours): Temp Pulse Resp BP Pulse Ox 97.8 F 88 18 126/63 95 05/26/17 11:56 05/26/17 11:56 05/26/17 11:56 05/26/17 11:56 05/26/17 11:56 Intake and Output: 05/26/17 05/26/17 06:59 18:59 Intake Total 600 380 Output Total 380 Balance 220 380 - Medications Medications: Current Medications Allopurinol (Zyloprim) 100 mg PO DAILY [facility] Last Admin: 05/26/17 08:32 Dose: 100 mg Doxercalciferol (Hectorol) 2 mcg IV MWF [facility] Stop: 06/01/17 23:59 Last Admin: 05/25/17 15:45 Dose: 2 mcg Epoetin Junior (Procrit) 10,000 unit IV MWF [facility] Stop: 06/01/17 23:59 Last Admin: 05/25/17 16:59 Dose: Not Given Iron Sucrose 100 mg/ Sodium (Chloride) 105 mls @ 105 mls/hr IVPB DAILY [facility] Stop: 05/29/17 14:31 Last Admin: 05/26/17 08:33 Dose: 105 mls/hr Insulin Human Regular (Humulin R) 0 units SC ACHS [facility] PRN Reason: Protocol Last Admin: 05/26/17 11:28 Dose: 6 units Lidocaine (Lidoderm) 1 ea TD DAILY [facility] Last Admin: 05/26/17 13:43 Dose: 1 ea Pantoprazole Sodium (Protonix Ec Tab) 40 mg PO DAILY [facility] Last Admin: 05/26/17 08:32 Dose: 40 mg Sevelamer Carbonate (Renvela) 1.6 gm PO TIDWM [facility] Last Admin: 05/26/17 13:45 Dose: 1.6 gm Vitamin B Complex/Vit C/Folic Acid (Nephro-Juancarlos) 1 tab PO DAILY [facility] Last Admin: 05/26/17 08:32 Dose: 1 tab - Labs Labs: 05/26/17 04:30 05/26/17 12:00 PT 11.7 Seconds (9.8-13.1) 05/24/17 13:30 INR 1.1 (0.9-1.2) 05/24/17 13:30 APTT 27.6 Seconds (25.6-37.1) 05/24/17 13:30 - Constitutional Appears: No Acute Distress - Head Exam Head Exam: NORMAL INSPECTION, NORMOCEPHALIC - Eye Exam Eye Exam: EOMI, Normal appearance Pupil Exam: NORMAL ACCOMODATION - ENT Exam ENT Exam: Mucous Membranes Moist, Normal External Ear Exam - Neck Exam Neck Exam: Full ROM. absent: Meningismus - Respiratory Exam Respiratory Exam: NORMAL BREATHING PATTERN. absent: Respiratory Distress - Cardiovascular Exam Cardiovascular Exam: REGULAR RHYTHM, +S1, +S2 - GI/Abdominal Exam GI & Abdominal Exam: Soft, Normal Bowel Sounds. absent: Tenderness - Extremities Exam Extremities Exam: Normal Capillary Refill. absent: Calf Tenderness, Pedal Edema Additional comments: pain on ROM of left knee , sl pain hip - Back Exam Back Exam: Full ROM. absent: CVA tenderness (L), CVA tenderness (R) - Neurological Exam Neurological Exam: Alert, Awake, CN II-XII Intact, Oriented x3 Neuro motor strength exam: Left Upper Extremity: 5, Right Upper Extremity: 5, Left Lower Extremity: 5, Right Lower Extremity: 5 - Psychiatric Exam Psychiatric exam: Normal Affect, Normal Mood - Skin Skin Exam: Dry, Normal Color, Warm Assessment and Plan - Assessment and Plan (Free Text) Assessment: 71 yo male with history of DM2, HTN, CKD and Gout came in because of back pain and leg pain since 3 days ago accompanied with generalized weakness and uncontrollable tremors. Patient states that he fell at home coming out of shower. Denied SOB, chest pain, fever or chills. In ER found to have BUN/Cr 155/ 11.9 Hyperkalemic K 7.7 acidotic with HCO3 9 and lactica acid 4.3 Patient admitted in ICU with MADONNA on CKD, metabolic acidosis, hyperkalemia 1. Acute renal failure (ARF) on CKD Acute Patient with BUN/Cr 155/11.6 on admission and HCO3 9 and K 7.7 , Anuric Admitted to ICU Nephro consulted Emergent Hemodialysis started Treated with NaHCO3 drip and D50 insulin , kayexalate Will continue with HD as per nephro recommendations 2.Metabolic acidosis As above most likely secondary to renal failure corrected with NaHCO3 drip and HD 3. Lactic acidosis most likely secondary to metformin use in setting of CKD no signs of sepsis D/c metformin 4. Hyperkalemia secondary to renal failure Treated with D50 amp, insulin , duoneb, calcium gluconate and Kayexalate renal diet K again elevated today - Kayexalate given , rpt K level 5.DM type II with Hypoglycemia Started on D10 NS diabetic diet continue accuchecks Endo consult today glucose elevated - d/c D10 IVF Started on Levemir 6. Thrombocytopenia unclear etiology unlikely microangiopathy as per Hematology Platelet count dropped from 137 K -- 47K no sign of bleeding hematology consulted patient received 1 dose 5000 unit Heparin before HD check HIT antibody 7. Anemia most likely patient has some degree of chronic anemia secondary to CKD but since Hgb is dropping from 8.3 -- 6.5 unclear if there is any acute blood loss Hematology consulted Transfused 2 units PRBC Epogen and Iron sucrose started 8. HTN (hypertension) Chronic controlled without meds 9. Gout stable uric acid level = 16 now down to 8 10. Knee Pain hx of recent fall at home Left knee xray and bilat hip xray: no fracture , degen joint dis Lidoderm patch to left knee DVT prophylaxis SCD no anticoag due to low Platelet
[2017-05-26] MEDS ORDERED: methylPREDNISolone 20 MG in Sodium Chloride 0.9% 50 ML IV STA (18:31)
--- NOTE | 2017-05-26 18:32 | CP.PCM.PN ---
Subjective - Date & Time of Evaluation Date of Evaluation: 05/26/17 Time of Evaluation: 18:32 - Subjective Subjective: pt is seen and examined, follow up consult is dictated #[id number] Objective - Vital Signs/Intake and Output Vital Signs (last 24 hours): Temp Pulse Resp BP Pulse Ox 98.1 F 91 H 21 122/69 94 L 05/26/17 16:00 05/26/17 16:00 05/26/17 16:00 05/26/17 16:00 05/26/17 16:00 Intake and Output: 05/26/17 05/26/17 06:59 18:59 Intake Total 600 500 Output Total 380 Balance 220 500 - Medications Medications: Current Medications Allopurinol (Zyloprim) 100 mg PO DAILY [facility] Last Admin: 05/26/17 08:32 Dose: 100 mg Doxercalciferol (Hectorol) 2 mcg IV MWF [facility] Stop: 06/01/17 23:59 Last Admin: 05/25/17 15:45 Dose: 2 mcg Epoetin Junior (Procrit) 10,000 unit IV MWF [facility] Stop: 06/01/17 23:59 Last Admin: 05/25/17 16:59 Dose: Not Given Iron Sucrose 100 mg/ Sodium (Chloride) 105 mls @ 105 mls/hr IVPB DAILY [facility] Stop: 05/29/17 14:31 Last Admin: 05/26/17 08:33 Dose: 105 mls/hr Methylprednisolone 20 mg/ (Sodium Chloride) 50 mls @ 100 mls/hr IV STAT [facility] Stop: 05/26/17 19:00 Insulin Human Regular (Humulin R) 0 units SC ACHS [facility] PRN Reason: Protocol Last Admin: 05/26/17 16:28 Dose: 5 units Lidocaine (Lidoderm) 1 ea TD DAILY [facility] Last Admin: 05/26/17 13:43 Dose: 1 ea Pantoprazole Sodium (Protonix Ec Tab) 40 mg PO DAILY [facility] Last Admin: 05/26/17 08:32 Dose: 40 mg Sevelamer Carbonate (Renvela) 1.6 gm PO TIDWM [facility] Last Admin: 05/26/17 16:29 Dose: 1.6 gm Vitamin B Complex/Vit C/Folic Acid (Nephro-Juancarlos) 1 tab PO DAILY [facility] Last Admin: 05/26/17 08:32 Dose: 1 tab - Labs Labs: 05/26/17 04:30 05/26/17 12:00 PT 11.7 Seconds (9.8-13.1) 05/24/17 13:30 INR 1.1 (0.9-1.2) 05/24/17 13:30 APTT 27.6 Seconds (25.6-37.1) 05/24/17 13:30
[2017-05-26 20:32] LABS: ADAMTS13 ACT W REFLX INHIB 67 % Activity (68-163); HEPARIN-IND PLATELET AB Negative (Negative)
--- NOTE | 2017-05-26 22:15 | PN ---
ENDO FOLLOWUP NOTE DATE: LOCATION: ICU, 430. SUBJECTIVE: This is a 71-year-old male with recent uncontrolled type 2 insulin-requiring diabetes developing hyperglycemic accelerations overnight after the administration of IV steroid therapy last night as noted. He actually came in with acute renal failure on the background of chronic kidney disease and concomitant symptomatic hypoglycemic episodes as noted thereof. His glucose values today have ranged from 296 to 478 and 497 mg/dl. His latest chemistry showed a BUN of 78, sodium 126, potassium 4.8, chloride 90, CO2 of 17, glucose 436 and creatinine 8.0. So at this time we will give a stat dose of Levemir given as 20 units subcutaneous this morning as ordered. We will also start him on the coverage scale as given with a low dose regular insulin coverage to be given a.c. and at bedtime as ordered. We will obtain serial chemistries and supplement accordingly needed. We will follow and advise accordingly. Roseanne Mccollum MD
--- NOTE | 2017-05-27 04:53 | PN ---
LOCATION: The patient is located in room #430, bed 1. REQUESTED BY: Rohan Culver MD REASON FOR FOLLOWUP: Renal failure for continuation of the hemodialysis. HISTORY: The patient is a 71-year-old elderly male with past medical history significant for hypertension for 15 years, diabetes for 10 years, hyperlipidemia, was admitted with chief complaints of feeling weak, tired and shaking and also lower abdominal discomfort. The patient was found to have a BUN and creatinine more than 150/11 and low H and H. Hyperkalemia, metabolic acidosis, started on hemodialysis. The patient is feeling much better, not in acute distress. The patient was also found to have a very high uric acid level and complaining of bilateral knee joint pains with tenderness and difficult to move both knees and started on Solu-Medrol last night. The patient was given 40 mg Solu-Medrol yesterday, and the patient is feeling much better, not in acute distress. Denies any headache or dizziness. Denies any chest pain or palpitations. Denies any fever or cough. No nausea, vomiting, diarrhea. The patient has abdominal distension. PHYSICAL EXAMINATION: VITAL SIGNS: Blood pressure this evening is 127/75, pulse 89, respirations 16, temperature 98.5, saturations 95%. Height 5 feet 6 inches and weight is 173 pounds. GENERAL: The patient is a 71-year-old elderly male, moderately build, moderately nourished, not in acute distress. HEENT: Pupils normal and reactive to light and accommodation. Conjunctivae pink. Sclerae anicteric. Tongue is moist. Trachea is midline. LUNGS: Symmetric on both sides. Bilateral breath sounds present. Clear on auscultation. CARDIOVASCULAR SYSTEM: [place] at the fifth intercostal space, midclavicular line. S1 and S2 audible. No murmur or gallop. ABDOMEN: Normal in appearance. Protuberant, soft and tympanic. No guarding. No rigidity. No hepatosplenomegaly. CENTRAL NERVOUS SYSTEM: The patient is alert, awake, and oriented x3. Nonfocal neuro examination. Cranial nerves II through XII grossly intact. Sensory and motor system is within normal limits. EXTREMITIES: No cyanosis. No clubbing. No edema. The patient has tenderness in both knees, left more than the right, it was improving compared to yesterday. CURRENT MEDICATIONS: Include as follows: Hectorol 2 mcg 3 times a week, Humulin R for sliding scale, iron sucrose 100 mg daily, Lidoderm patch to knee joint, Nephro-Juancarlos 1 tablet daily, Epogen 10,000 units three times; Thursday, Thursday, Thursday, Protonix 40 mg p.o. daily, Renvela 1.6 g p.o. t.i.d., and allopurinol 100 mg p.o. daily. LABORATORY DATA: Include as follows: As of 05/26/2017; WBC 8.5, hemoglobin 9.2, hematocrit is 28.2, and platelets 47. Sodium 127, potassium 5.9, chloride 91, CO2 of 23, BUN 68, creatinine 7.3, glucose 243, calcium 6.7, total bilirubin 0.7, AST 53, ALT 53, alkaline phosphatase is 90. Total protein 5.9, albumin is 3.1. His repeat BMP as of 05/26/2017, at 12 noon sodium 126, potassium 4.8, chloride 90, CO2 of 17, BUN 78, creatinine 8.0, glucose 436, and calcium is 6.5. Serum immunofixation is not detected. Heparin-induced antibody was negative. ASSESSMENT AND PLAN: In summary, the patient is a 71-year-old elderly male with history of hypertension, diabetes, renal failure, thrombocytopenia with hyperuricemia, and gout. 1. Renal failure, etiology is not clear, rule out diabetic nephropathy versus rule out chronic glomerulonephritis. 2. Secondary hyperparathyroidism. 3. Anemia, secondary to renal failure and iron deficiency. 4. Thrombocytopenia, etiology is not clear, cannot rule out secondary to hemodialysis. ALLERGIC REACTION TO MEMBRANE DIALYZER. 5. Acute gouty arthritis, continue Solu-Medrol 20 mg IV piggyback tonight, and we will change to p.o. Solu-Medrol from tomorrow, 20 mg daily and taper off 5 mg every two days. Continue allopurinol. We will schedule for hemodialysis in the a.m. We will follow with you. Thank you for allowing me to participate in your patient's care. Naveen Schwartz MD [facility] # [id number]
[2017-05-27 05:32] LABS: HEMATOCRIT 29.1 % (35.0-51.0); MEAN CELL VOLUME 92.5 fl (80.0-94.0); MEAN CORPUSCULAR HEMOGLOBIN 30.4 pg (27.0-31.0); MEAN CORPUSCULAR HGB CONC 32.8 g/dL (33.0-37.0); WHITE BLOOD COUNT 12.8 K/uL (4.8-10.8)
[2017-05-27 05:34] LABS: CALCIUM 6.6 mg/dL (8.4-10.2); POTASSIUM 4.8 MMOL/L (3.6-5.0)
[2017-05-27] MEDS: Insulin Regular 100 units/ml SC SCH ×4 (06:55→22:00)
[2017-05-27 07:12] LABS: BETA 1 GLOBULIN 0.4 g/dL (0.4-0.6); BETA 2 GLOBULIN 0.4 g/dL (0.2-0.5); GAMMA GLOBULIN 0.9 g/dL (0.8-1.7)
[2017-05-27] MEDS: Sevelamer Carb 0.8 gm/Packet PO SCH ×3 (08:30→17:21)
[2017-05-27] MEDS: Lidocaine 5% Patch TD SCH (09:09)
[2017-05-27] MEDS: Multivitamin Vitamin B Complex (Nephro-Vite) Tab PO SCH (09:10)
[2017-05-27] MEDS: Pantoprazole 40 mg EC Tab PO SCH (09:10)
[2017-05-27] MEDS: Doxercalciferol 4 mcg/2 ml Inj IV SCH (09:30)
--- NOTE | 2017-05-27 09:46 | CP.PCM.PN ---
Subjective - Date & Time of Evaluation Date of Evaluation: 05/26/17 Time of Evaluation: 17:15 - Subjective Subjective: Has pain in knees but feeling better Objective - Vital Signs/Intake and Output Vital Signs (last 24 hours): Temp Pulse Resp BP Pulse Ox 98.0 F 85 17 116/65 93 L 05/27/17 08:00 05/27/17 08:00 05/27/17 08:00 05/27/17 08:00 05/27/17 08:00 Intake and Output: 05/27/17 05/27/17 06:59 18:59 Intake Total 250 Output Total 3450 Balance -3200 - Medications Medications: Current Medications Allopurinol (Zyloprim) 100 mg PO DAILY [facility] Last Admin: 05/27/17 09:11 Dose: 100 mg Doxercalciferol (Hectorol) 2 mcg IV MWF [facility] Stop: 06/01/17 23:59 Last Admin: 05/25/17 15:45 Dose: 2 mcg Epoetin Junior (Procrit) 10,000 unit IV MWF [facility] Stop: 06/01/17 23:59 Last Admin: 05/25/17 16:59 Dose: Not Given Iron Sucrose 100 mg/ Sodium (Chloride) 105 mls @ 105 mls/hr IVPB DAILY [facility] Stop: 05/29/17 14:31 Last Admin: 05/26/17 08:33 Dose: 105 mls/hr Insulin Human Regular (Humulin R) 0 units SC ACHS [facility] PRN Reason: Protocol Last Admin: 05/27/17 06:55 Dose: Not Given Lidocaine (Lidoderm) 1 ea TD DAILY [facility] Last Admin: 05/27/17 09:09 Dose: 1 ea Pantoprazole Sodium (Protonix Ec Tab) 40 mg PO DAILY [facility] Last Admin: 05/27/17 09:10 Dose: 40 mg Sevelamer Carbonate (Renvela) 1.6 gm PO TIDWM [facility] Last Admin: 05/27/17 08:30 Dose: 1.6 gm Vitamin B Complex/Vit C/Folic Acid (Nephro-Juancarlos) 1 tab PO DAILY [facility] Last Admin: 05/27/17 09:10 Dose: 1 tab - Labs Labs: 05/27/17 04:25 05/27/17 04:25 PT 11.7 Seconds (9.8-13.1) 05/24/17 13:30 INR 1.1 (0.9-1.2) 05/24/17 13:30 APTT 27.6 Seconds (25.6-37.1) 05/24/17 13:30 - Head Exam Head Exam: ATRAUMATIC - Eye Exam Eye Exam: Normal appearance - ENT Exam ENT Exam: Mucous Membranes Dry - Respiratory Exam Respiratory Exam: NORMAL BREATHING PATTERN - Cardiovascular Exam Cardiovascular Exam: +S1, +S2 - GI/Abdominal Exam GI & Abdominal Exam: Normal Bowel Sounds - Extremities Exam Extremities Exam: Normal Inspection Assessment and Plan (1) Anemia Assessment & Plan: hypoproliferative erythroid response anemia of renal disease EPO per renal normal iron/b12/folate stores no evidence of hemolysis f/u FOBT f/u monoclonal protein w/u transfusion support PRN Status: Acute (2) Thrombocytopenia Assessment & Plan: unclear etiology no evidence of microangiopathic hemolysis heparin Ab negative may need bone marrow evaluation if no improvement in next few days Status: Acute
--- NOTE | 2017-05-27 09:49 | CP.CCUPN ---
<Raquel Coombs - Last Filed: 05/27/17 11:31> CCU Subjective - Physician Review Subjective (Free Text): 05/27/17 09:49 Patient seen and examined at bedside, alert, awake, with normal stool output and 4L urine output overnight. Left knee pain persists. Denies chest pain, SOB, weakness or dizziness. CCU Objective - Vital Signs / Intake & Output Vital Signs (Last 4 hours): Vital Signs Temp Pulse Resp BP Pulse Ox 05/27/17 08:00 98.0 F 85 17 116/65 93 L 05/27/17 06:00 98.1 F 75 16 117/56 L 96 Intake and Output (Last 8hrs): Intake & Output 05/26/17 05/27/17 05/27/17 22:59 06:59 14:59 Intake Total 514 16 Output Total 550 3450 Balance -36 -3434 Weight 175 lb 12.8 oz Intake: IV 4 16 Intake, Piggyback 50 Oral 460 Output: Urine 550 3450 Urethral (Patel) 550 3450 Other: # Bowel Movements 1 - Physical Exam Head: Positive for: Normocephalic Pupils: Positive for: PERRL Extroacular Muscles: Positive for: EOMI Conjunctiva: Positive for: Normal. Negative for: Icteric Mouth: Positive for: Moist Mucous Membranes Neck: Positive for: Normal Range of Motion. Negative for: JVD Respiratory/Chest: Positive for: Clear to Auscultation, Decreased Breath Sounds. Negative for: Accessory Muscle Use, Wheezes Cardiovascular: Positive for: Regular Rate and Rhythm. Negative for: Murmurs, Rub Abdomen: Positive for: Normal Bowel Sounds. Negative for: Tenderness, Distention Genitourinary Male: Positive for: Other (patel catheter in place-drained 4L clear yellow urine overnight) Upper Extremity: Positive for: NORMAL PULSES (right hand IV and left antecubital IV present) Lower Extremity: Positive for: NORMAL PULSES (mild stasis dermatitis ). Negative for: CALF TENDERNESS, Cyanosis Neurological: Positive for: GCS=15, Motor Func Grossly Intact, Normal Sensory Function Skin: Positive for: Warm. Negative for: Rashes Psychiatric: Positive for: Alert - Medications Active Medications: Active Medications Generic Name Dose Route Start Last Admin Trade Name Freq PRN Reason Stop Dose Admin Allopurinol 100 mg 05/24/17 09:00 05/27/17 09:11 Zyloprim PO 100 mg DAILY ROSS Administration Doxercalciferol 2 mcg 05/25/17 12:00 05/25/17 15:45 Hectorol IV 06/01/17 23:59 2 mcg MWF ROSS Administration Epoetin Junior 10,000 unit 05/25/17 11:30 05/25/17 16:59 Procrit IV 06/01/17 23:59 Not Given MWF ROSS Iron Sucrose 100 mg/ Sodium 105 mls @ 105 mls/hr 05/24/17 14:30 05/26/17 08: 33 Chloride IVPB 05/29/17 14:31 105 mls/hr DAILY ROSS Administration Insulin Human Regular 0 units 05/26/17 11:30 05/27/17 06:55 Humulin R SC Not Given ACHS [facility] Protocol Lidocaine 1 ea 05/26/17 12:45 05/27/17 09:09 Lidoderm TD 1 ea DAILY ROSS Administration Pantoprazole Sodium 40 mg 05/24/17 09:00 05/27/17 09:10 Protonix Ec Tab PO 40 mg DAILY ROSS Administration Sevelamer Carbonate 1.6 gm 05/24/17 17:00 05/27/17 08:30 Renvela PO 1.6 gm TIDWM ROSS Administration Vitamin B Complex/Vit C/Folic Acid 1 tab 05/24/17 13:45 05/27/17 09:10 Nephro-Juancarlos PO 1 tab DAILY ROSS Administration - Patient Studies Lab Studies: Lab Studies 05/27/17 05/27/17 05/27/17 Range/Units 05:08 04:25 04:25 WBC 12.8 H D (4.8-10.8) K/uL RBC 3.15 L (4.40-5.90) Mil/uL Hgb 9.6 L (12.0-18.0) g/dL Hct 29.1 L (35.0-51.0) % MCV 92.5 (80.0-94.0) fl MCH 30.4 (27.0-31.0) pg MCHC 32.8 L (33.0-37.0) g/dL RDW 17.0 H (11.5-14.5) % Plt Count 70 L D (130-400) K/uL [id number] Inhibitor (68-163) % Activity [id number] Inhibit Titer (()) Sodium 132 (132-148) mmol/l Potassium 4.8 (3.6-5.0) MMOL/L Chloride 94 L (98-107) mmol/L Carbon Dioxide 21 L (22-30) mmol/L Anion Gap 22 H (10-20) BUN 94 H (9-20) mg/dl Creatinine 8.6 H* (0.8-1.5) mg/dL Est GFR ( Amer) 7 Est GFR (Non-Af Amer) 6 POC Glucose (mg/dL) 195 H (65-110) mg/dL Random Glucose 193 H (75-110) mg/dL Calcium 6.6 L (8.4-10.2) mg/dL Albumin (PEP) (3.8-4.8) g/dL Cqjky-1-Sgqclxlti (0.2-0.3) g/dL Gavsx-5-Ekvdulofp (0.5-0.9) g/dL Hfsu-5-Uqidaqzm (0.4-0.6) g/dL Rdtr-4-Dqaqrsob (0.2-0.5) g/dL Gamma Globulins (0.8-1.7) g/dL Abnorm Protein Band 1 Abnorm Protein Band 2 Abnorm Protein Band 3 ACTH (6-50) pg/mL ALEXANDRE & SPEP Interp Serum Immunofixation (Not Detected) Heparin-induced Plt Ab (Negative) Crossmatch 05/26/17 05/26/17 05/26/17 Range/Units 21:34 16:27 12:07 WBC (4.8-10.8) K/uL RBC (4.40-5.90) Mil/uL Hgb (12.0-18.0) g/dL Hct (35.0-51.0) % MCV (80.0-94.0) fl MCH (27.0-31.0) pg MCHC (33.0-37.0) g/dL RDW (11.5-14.5) % Plt Count (130-400) K/uL [id number] Inhibitor (68-163) % Activity [id number] Inhibit Titer (()) Sodium (132-148) mmol/l Potassium (3.6-5.0) MMOL/L Chloride (98-107) mmol/L Carbon Dioxide (22-30) mmol/L Anion Gap (10-20) BUN (9-20) mg/dl Creatinine (0.8-1.5) mg/dL Est GFR ( Amer) Est GFR (Non-Af Amer) POC Glucose (mg/dL) 165 H 357 H 497 H* (65-110) mg/dL Random Glucose (75-110) mg/dL Calcium (8.4-10.2) mg/dL Albumin (PEP) (3.8-4.8) g/dL Pkfdq-8-Gpukxgxrf (0.2-0.3) g/dL Hjzdt-9-Sqlpnvphy (0.5-0.9) g/dL Oaxb-2-Ehdvrdle (0.4-0.6) g/dL Mcji-1-Vehlbsmf (0.2-0.5) g/dL Gamma Globulins (0.8-1.7) g/dL Abnorm Protein Band 1 Abnorm Protein Band 2 Abnorm Protein Band 3 ACTH (6-50) pg/mL ALEXANDRE & SPEP Interp Serum Immunofixation (Not Detected) Heparin-induced Plt Ab (Negative) Crossmatch 05/26/17 05/26/17 05/25/17 Range/Units 12:00 11:21 04:35 WBC (4.8-10.8) K/uL RBC (4.40-5.90) Mil/uL Hgb (12.0-18.0) g/dL Hct (35.0-51.0) % MCV (80.0-94.0) fl MCH (27.0-31.0) pg MCHC (33.0-37.0) g/dL RDW (11.5-14.5) % Plt Count (130-400) K/uL [id number] Inhibitor (68-163) % Activity [id number] Inhibit Titer (()) Sodium 126 L (132-148) mmol/l Potassium 4.8 (3.6-5.0) MMOL/L Chloride 90 L (98-107) mmol/L Carbon Dioxide 17 L (22-30) mmol/L Anion Gap 24 H (10-20) BUN 78 H (9-20) mg/dl Creatinine 8.0 H* (0.8-1.5) mg/dL Est GFR ( Amer) 8 Est GFR (Non-Af Amer) 7 POC Glucose (mg/dL) 478 H* (65-110) mg/dL Random Glucose 436 H* D (75-110) mg/dL Calcium 6.5 L (8.4-10.2) mg/dL Albumin (PEP) (3.8-4.8) g/dL Stxqw-5-Vvccelmjb (0.2-0.3) g/dL Ckjax-5-Awgqwvbzz (0.5-0.9) g/dL Fbuy-4-Zivuntsm (0.4-0.6) g/dL Babl-3-Vqqkpxup (0.2-0.5) g/dL Gamma Globulins (0.8-1.7) g/dL Abnorm Protein Band 1 Abnorm Protein Band 2 Abnorm Protein Band 3 ACTH 12 (6-50) pg/mL ALEXANDRE & SPEP Interp Serum Immunofixation (Not Detected) Heparin-induced Plt Ab (Negative) Crossmatch 05/25/17 05/24/17 05/24/17 Range/Units 04:35 15:10 12:10 WBC (4.8-10.8) K/uL RBC (4.40-5.90) Mil/uL Hgb (12.0-18.0) g/dL Hct (35.0-51.0) % MCV (80.0-94.0) fl MCH (27.0-31.0) pg MCHC (33.0-37.0) g/dL RDW (11.5-14.5) % Plt Count (130-400) K/uL [id number] Inhibitor 67 L (68-163) % Activity [id number] Inhibit Titer (()) Sodium (132-148) mmol/l Potassium (3.6-5.0) MMOL/L Chloride (98-107) mmol/L Carbon Dioxide (22-30) mmol/L Anion Gap (10-20) BUN (9-20) mg/dl Creatinine (0.8-1.5) mg/dL Est GFR ( Amer) Est GFR (Non-Af Amer) POC Glucose (mg/dL) (65-110) mg/dL Random Glucose (75-110) mg/dL Calcium (8.4-10.2) mg/dL Albumin (PEP) (3.8-4.8) g/dL Vwizs-9-Ziffqmaob (0.2-0.3) g/dL Ntxnu-1-Avbnblhge (0.5-0.9) g/dL Nldk-6-Fufsbnsr (0.4-0.6) g/dL Tdku-1-Bduegqhr (0.2-0.5) g/dL Gamma Globulins (0.8-1.7) g/dL Abnorm Protein Band 1 Abnorm Protein Band 2 Abnorm Protein Band 3 ACTH (6-50) pg/mL ALEXANDRE & SPEP Interp Serum Immunofixation Not detected (Not Detected) Heparin-induced Plt Ab (Negative) Crossmatch See Detail 05/24/17 05/23/17 Range/Units 12:10 21:20 WBC (4.8-10.8) K/uL RBC (4.40-5.90) Mil/uL Hgb (12.0-18.0) g/dL Hct (35.0-51.0) % MCV (80.0-94.0) fl MCH (27.0-31.0) pg MCHC (33.0-37.0) g/dL RDW (11.5-14.5) % Plt Count (130-400) K/uL [id number] Inhibitor (68-163) % Activity [id number] Inhibit Titer (()) Sodium (132-148) mmol/l Potassium (3.6-5.0) MMOL/L Chloride (98-107) mmol/L Carbon Dioxide (22-30) mmol/L Anion Gap (10-20) BUN (9-20) mg/dl Creatinine (0.8-1.5) mg/dL Est GFR ( Amer) Est GFR (Non-Af Amer) POC Glucose (mg/dL) (65-110) mg/dL Random Glucose (75-110) mg/dL Calcium (8.4-10.2) mg/dL Albumin (PEP) 3.4 L (3.8-4.8) g/dL Wlmwz-8-Jawlacnox 0.3 (0.2-0.3) g/dL Ogzql-9-Bamfnucac 0.7 (0.5-0.9) g/dL Lfgd-5-Likfbvgm 0.4 (0.4-0.6) g/dL Pens-8-Monrzann 0.4 (0.2-0.5) g/dL Gamma Globulins 0.9 (0.8-1.7) g/dL Abnorm Protein Band 1 TEST NOT PERFORMED Abnorm Protein Band 2 TEST NOT PERFORMED Abnorm Protein Band 3 TEST NOT PERFORMED ACTH (6-50) pg/mL ALEXANDRE & SPEP Interp See note Serum Immunofixation (Not Detected) Heparin-induced Plt Ab Negative (Negative) Crossmatch Laboratory Results - last 24 hr 05/23/17 05/24/17 05/24/17 21:20 12:10 12:10 WBC RBC Hgb Hct MCV MCH MCHC RDW Plt Count [id number] Inhibitor 67 L [id number] Inhibit Titer Sodium Potassium Chloride Carbon Dioxide Anion Gap BUN Creatinine Est GFR ( Amer) Est GFR (Non-Af Amer) POC Glucose (mg/dL) Random Glucose Calcium Albumin (PEP) 3.4 L Kfzrl-2-Qmeqhmhcb 0.3 Beabw-5-Nkxhgptnq 0.7 Qgzq-2-Bwkssxuf 0.4 Btnw-2-Ghmliszh 0.4 Gamma Globulins 0.9 Abnorm Protein Band 1 TEST NOT PERFORMED Abnorm Protein Band 2 TEST NOT PERFORMED Abnorm Protein Band 3 TEST NOT PERFORMED ACTH ALEXANDRE & SPEP Interp See note Serum Immunofixation Heparin-induced Plt Ab Negative Crossmatch 05/24/17 05/25/17 05/25/17 15:10 04:35 04:35 WBC RBC Hgb Hct MCV MCH MCHC RDW Plt Count [id number] Inhibitor [id number] Inhibit Titer Sodium Potassium Chloride Carbon Dioxide Anion Gap BUN Creatinine Est GFR ( Amer) Est GFR (Non-Af Amer) POC Glucose (mg/dL) Random Glucose Calcium Albumin (PEP) Sqypd-5-Sjswygycp Fiiqf-6-Ijtiovtde Lyjg-7-Paxdtciq Iuab-6-Wxuphjnx Gamma Globulins Abnorm Protein Band 1 Abnorm Protein Band 2 Abnorm Protein Band 3 ACTH 12 ALEXANDRE & SPEP Interp Serum Immunofixation Not detected Heparin-induced Plt Ab Crossmatch See Detail 05/26/17 05/26/17 05/26/17 11:21 12:00 12:07 WBC RBC Hgb Hct MCV MCH MCHC RDW Plt Count [id number] Inhibitor [id number] Inhibit Titer Sodium 126 L Potassium 4.8 Chloride 90 L Carbon Dioxide 17 L Anion Gap 24 H BUN 78 H Creatinine 8.0 H* Est GFR ( Amer) 8 Est GFR (Non-Af Amer) 7 POC Glucose (mg/dL) 478 H* 497 H* Random Glucose 436 H* D Calcium 6.5 L Albumin (PEP) Nryju-7-Wnhvonejo Flatb-8-Kdtrroliy Jjhx-2-Dmmaepkn Wcef-4-Jvgdyewf Gamma Globulins Abnorm Protein Band 1 Abnorm Protein Band 2 Abnorm Protein Band 3 ACTH ALEXANDRE & SPEP Interp Serum Immunofixation Heparin-induced Plt Ab Crossmatch 05/26/17 05/26/17 05/27/17 16:27 21:34 04:25 WBC 12.8 H D RBC 3.15 L Hgb 9.6 L Hct 29.1 L MCV 92.5 MCH 30.4 MCHC 32.8 L RDW 17.0 H Plt Count 70 L D [id number] Inhibitor [id number] Inhibit Titer Sodium Potassium Chloride Carbon Dioxide Anion Gap BUN Creatinine Est GFR ( Amer) Est GFR (Non-Af Amer) POC Glucose (mg/dL) 357 H 165 H Random Glucose Calcium Albumin (PEP) Iulal-0-Bfipttxnp Alzrs-9-Xiccyzdoe Vjxy-7-Uixmcgah Cnia-7-Oggxkgol Gamma Globulins Abnorm Protein Band 1 Abnorm Protein Band 2 Abnorm Protein Band 3 ACTH ALEXANDRE & SPEP Interp Serum Immunofixation Heparin-induced Plt Ab Crossmatch 05/27/17 05/27/17 04:25 05:08 WBC RBC Hgb Hct MCV MCH MCHC RDW Plt Count [id number] Inhibitor [id number] Inhibit Titer Sodium 132 Potassium 4.8 Chloride 94 L Carbon Dioxide 21 L Anion Gap 22 H BUN 94 H Creatinine 8.6 H* Est GFR ( Amer) 7 Est GFR (Non-Af Amer) 6 POC Glucose (mg/dL) 195 H Random Glucose 193 H Calcium 6.6 L Albumin (PEP) Olmxz-0-Jswjmcjry Igjtc-7-Vzzocfnxk Ltqc-9-Xhvoglly Toks-7-Vvecltsi Gamma Globulins Abnorm Protein Band 1 Abnorm Protein Band 2 Abnorm Protein Band 3 ACTH ALEXANDRE & SPEP Interp Serum Immunofixation Heparin-induced Plt Ab Crossmatch EKG/Cardiology Studies: Cardiology / EKG Studies 05/26/17 09:39 EKG [ELECTROCARDIOGRAM] Routine Comment: Mode Of Transportation: PORTABLE Reason For Exam: hyperkalemia PRE OP:: N Does Patient Have a Pacemaker?: No Fingerstick Blood Sugar Results: 195 Review of Systems - Review of Systems All systems: reviewed and no additional remarkable complaints except (left knee pain) Critical Care Progress Note - Prophylaxis GI Prophylaxis GI: PPI - Prophylaxis DVT Prophylaxis DVT: SCDs - Nutrition Nutrition: Nutrition Category Date Time Status Renal Diet [DIET] Diets 05/24/17 Dinner Active Assessment/Plan - Assessment and Plan (Free Text) Assessment: 71 yr old M with PMHx of NIDDM Type 2, CKD, HTN and gout admitted to ICU for Acute on CKD requiring first time HD, metabolic acidosis, hyperkalemia and hypoglycemia. Hyperkalemia and metabolic acidosis have resolved. Patient is now on hemodialysis schedule MWF. Patient is stable for transfer to med-surg. 1. Acute on CKD 2. Hyperkalemia 3. Anemia of chronic disease 4. DM Type 2- uncontrolled 5. Acute Thrombocytopenia of unknown etiology 6. HTN-controlled 7. Gout- controlled 8. GI prophylaxis 9. DVT prophylaxis Plan 1. Bun/Cr 94/8.6-mildly improved s/p 2 sessions HD via right femoral line . HD scheduled MWF . Nephrology on board, will follow recommendations. 2. resolved, K+ 4.8 this AM, EKG normal sinus with prolonged QTc 484, Monitor K+ 3. stable, H/H 9.6/29.1 s/p 2 units leukocyte reduced pRBC's transfused 05/24/17 , c/w Venofer 100mg IV QD x 5 days 4. pt hyperglycemic this AM, HbA1c 8.2 on 05/24/17, moderate CHO diet, insulin low dose coverage scale SC ACHS, endocrinology on board, will follow recommendations 5. mild improvement, plts 70 this AM (137 on 05/23/17) coags wnl, retic ct 1.8, haptoglobin 157, total bilirubin wnl. Heme/onc on board, will follow recommendations: poss bone marrow eval if no improvement in the next couple of days 6. chronic, off of home med, continue to monitor BP 7. chronic, continue Allopurinol 100mg PO QD 8. Protonix 40mg PO QD 9. SCD's for now , avoid Heparin or Lovenox as pt has acute thrombocytopenia of unknown etiology - Date & Time Date: 05/27/17 Time: 08:25 <Marcos Leigh - Last Filed: 05/27/17 15:30> Critical Care Progress Note - Nutrition Nutrition: Nutrition Category Date Time Status Renal Diet [DIET] Diets 05/24/17 Dinner Active Assessment/Plan - Assessment and Plan (Free Text) Plan: Attestation: Patient seen and examined at the bedside with Resident Dr. Arianne Coombs; and I agree with her outline of plans and management as documented below and discussed on AM rounds today, May 27, 2017. Any exceptions or additions are listed in my personal note that follows and reflects my review of all applicable clinical data, and participation in the care of the patient throughout the day in ICU.
--- NOTE | 2017-05-27 10:10 | CARD ---
APPROVED REPORT EKG Measurement Heart [id number] <Conclusion> Normal sinus rhythm Normal ECG
--- NOTE | 2017-05-27 13:33 | CP.PCM.PN ---
Subjective - Date & Time of Evaluation Date of Evaluation: 05/27/17 Time of Evaluation: 12:30 - Subjective Subjective: Pt sched for Dialysis today denies CP no SOB no abd pain no fever feels better Objective - Vital Signs/Intake and Output Vital Signs (last 24 hours): Temp Pulse Resp BP Pulse Ox 97.8 F 79 13 120/54 L 92 L 05/27/17 12:00 05/27/17 12:00 05/27/17 12:00 05/27/17 12:00 05/27/17 12:00 Intake and Output: 05/27/17 05/27/17 06:59 18:59 Intake Total 250 Output Total 3450 Balance -3200 - Medications Medications: Current Medications Allopurinol (Zyloprim) 100 mg PO DAILY [facility] Last Admin: 05/27/17 09:11 Dose: 100 mg Doxercalciferol (Hectorol) 2 mcg IV MWF ROSS Stop: 06/01/17 23:59 Last Admin: 05/25/17 15:45 Dose: 2 mcg Epoetin Junior (Procrit) 10,000 unit IV MWF ROSS Stop: 06/01/17 23:59 Last Admin: 05/25/17 16:59 Dose: Not Given Iron Sucrose 100 mg/ Sodium (Chloride) 105 mls @ 105 mls/hr IVPB DAILY ROSS Stop: 05/29/17 14:31 Last Admin: 05/26/17 08:33 Dose: 105 mls/hr Insulin Human Regular (Humulin R) 0 units SC ACHS [facility] PRN Reason: Protocol Last Admin: 05/27/17 11:40 Dose: 5 units Lidocaine (Lidoderm) 1 ea TD DAILY ROSS Last Admin: 05/27/17 09:09 Dose: 1 ea Pantoprazole Sodium (Protonix Ec Tab) 40 mg PO DAILY ROSS Last Admin: 05/27/17 09:10 Dose: 40 mg Sevelamer Carbonate (Renvela) 1.6 gm PO TIDWM ROSS Last Admin: 05/27/17 08:30 Dose: 1.6 gm Vitamin B Complex/Vit C/Folic Acid (Nephro-Juancarlos) 1 tab PO DAILY ROSS Last Admin: 05/27/17 09:10 Dose: 1 tab - Labs Labs: 05/27/17 04:25 05/27/17 04:25 PT 11.7 Seconds (9.8-13.1) 05/24/17 13:30 INR 1.1 (0.9-1.2) 05/24/17 13:30 APTT 27.6 Seconds (25.6-37.1) 05/24/17 13:30 - Constitutional Appears: No Acute Distress - Head Exam Head Exam: NORMAL INSPECTION, NORMOCEPHALIC - Eye Exam Eye Exam: EOMI, Normal appearance Pupil Exam: NORMAL ACCOMODATION - ENT Exam ENT Exam: Mucous Membranes Moist, Normal External Ear Exam - Neck Exam Neck Exam: Full ROM. absent: Meningismus - Respiratory Exam Respiratory Exam: NORMAL BREATHING PATTERN. absent: Respiratory Distress - Cardiovascular Exam Cardiovascular Exam: REGULAR RHYTHM, +S1, +S2 - GI/Abdominal Exam GI & Abdominal Exam: Soft, Normal Bowel Sounds. absent: Tenderness - Extremities Exam Extremities Exam: Normal Capillary Refill. absent: Calf Tenderness, Pedal Edema Additional comments: pain on ROM of left knee , sl pain hip - Back Exam Back Exam: Full ROM. absent: CVA tenderness (L), CVA tenderness (R) - Neurological Exam Neurological Exam: Alert, Awake, CN II-XII Intact, Oriented x3 Neuro motor strength exam: Left Upper Extremity: 5, Right Upper Extremity: 5, Left Lower Extremity: 5, Right Lower Extremity: 5 - Psychiatric Exam Psychiatric exam: Normal Affect, Normal Mood - Skin Skin Exam: Dry, Normal Color, Warm Assessment and Plan - Assessment and Plan (Free Text) Assessment: 71 yo male with history of DM2, HTN, CKD and Gout came in because of back pain and leg pain since 3 days ago accompanied with generalized weakness and uncontrollable tremors. Patient states that he fell at home coming out of shower. Denied SOB, chest pain, fever or chills. In ER found to have BUN/Cr 155/ 11.9 Hyperkalemic K 7.7 acidotic with HCO3 9 and lactica acid 4.3 Patient admitted in ICU with MADONNA on CKD, metabolic acidosis, hyperkalemia 1. Acute renal failure (ARF) on CKD Acute Patient with BUN/Cr 155/11.6 on admission and HCO3 9 and K 7.7 , Anuric Admitted to ICU Nephro consulted Emergent Hemodialysis started Treated with NaHCO3 drip and D50 insulin , kayexalate Will continue with HD as per nephro recommendations 2.Metabolic acidosis As above most likely secondary to renal failure corrected with NaHCO3 drip and HD 3. Lactic acidosis most likely secondary to metformin use in setting of CKD no signs of sepsis D/c metformin 4. Hyperkalemia secondary to renal failure Treated with D50 amp, insulin , duoneb, calcium gluconate and Kayexalate renal diet 5.DM type II with Hypoglycemia initially Started on D10 NS bec of hypoglycemia, now with elevated glucose diabetic diet continue accuchecks with coverage Endo consult Started on Levemir 6. Thrombocytopenia unclear etiology unlikely microangiopathy as per Hematology Platelet count dropped from 137 K -- to as low as 40 , [id number] no sign of bleeding hematology consulted patient received 1 dose 5000 unit Heparin before HD check HIT antibody received 1 dose IV Solumedrol 7. Anemia most likely patient has some degree of chronic anemia secondary to CKD but since Hgb is dropping from 8.3 -- 6.5 unclear if there is any acute blood loss Hematology consulted Transfused 2 units PRBC Epogen and Iron sucrose started 8. HTN (hypertension) Chronic controlled without meds 9. Gout stable uric acid level = 16 now down to 8 10. Knee Pain hx of recent fall at home Left knee xray and bilat hip xray: no fracture , degen joint dis Lidoderm patch to left knee DVT prophylaxis SCD no anticoag due to low Platelet
[2017-05-27] MEDS ORDERED: Insulin Detemir 100 Units/ml Inj SC ONE (13:40)
[2017-05-27] MEDS ORDERED: Sterile Water 10 ML IV ONE (16:13)
[2017-05-27 17:11] LABS: UFH SRA RESULT Negative (Negative)
[2017-05-27] MEDS: EPOETIN ALFA 10,000 UNIT/ML ML IV SCH (17:20)
[2017-05-27] MEDS ORDERED: Insulin Detemir 100 Units/ml Inj SC SCH (22:00)
[2017-05-28 02:35] LABS: KAPPA/LAMBDA FREE RATIO 1.59 (0.26-1.65)
[2017-05-28 05:40] LABS: HEMATOCRIT 30.8 % (35.0-51.0); MEAN CELL VOLUME 93.1 fl (80.0-94.0); MEAN CORPUSCULAR HEMOGLOBIN 30.1 pg (27.0-31.0); MEAN CORPUSCULAR HGB CONC 32.3 g/dL (33.0-37.0); WHITE BLOOD COUNT 13.7 K/uL (4.8-10.8)
[2017-05-28 05:59] LABS: CALCIUM 6.7 mg/dL (8.4-10.2); POTASSIUM 3.7 MMOL/L (3.6-5.0)
[2017-05-28] MEDS: Insulin Regular 100 units/ml SC SCH ×4 (06:32→22:31)
--- NOTE | 2017-05-28 08:26 | PN ---
ENDO FOLLOWUP NOTE DATE: LOCATION: Room 430 ICU. SUBJECTIVE: This is a 71-year-old male with recent acute renal failure with underlying chronic kidney disease, presenting here with symptomatic hypoglycemia and has now episodic bouts of hyperglycemic accelerations as noted thereof. LABORATORY DATA: His glucose levels today have ranged from 195-343 and 398 mg/dl. The latest chemistry showed a BUN of 94, sodium 132, potassium 4.8, chloride 94, CO2 21, glucose 193 and creatinine 8.6. ASSESSMENT AND PLAN: So at this time, we will once again give him a stat dose of Levemir given as 10 units subcutaneous at 10:00 a.m. this morning as ordered. We will also give him a basal insulin of Levemir given as 12 units subcutaneous at bedtime daily to start tonight. We will continue the low-dose correction scale using Humalog insulin as given to yefri hypoglycemia and detailed orders have been given. We will obtain serial chemistries and supplement accordingly as needed. We will follow you.. Roseanne Mccollum MD
[2017-05-28] MEDS: Lidocaine 5% Patch TD SCH (09:17)
[2017-05-28] MEDS: Multivitamin Vitamin B Complex (Nephro-Vite) Tab PO SCH (09:18)
[2017-05-28] MEDS: Pantoprazole 40 mg EC Tab PO SCH (09:18)
[2017-05-28] MEDS: Sevelamer Carb 0.8 gm/Packet PO SCH ×3 (09:19→16:42)
--- NOTE | 2017-05-28 09:42 | CP.PCM.PN ---
Subjective - Date & Time of Evaluation Date of Evaluation: 05/28/17 Time of Evaluation: 08:30 - Subjective Subjective: Patient seen and examined . Sitting in chair ,comfortable with NAD. [place] a little dizzy today while moving from bed to chair and BP 99/[address] with good urine output almost 2200 ml last 24 hours Had HD yesterday and BUN/Cr 67/5.5 WBC 13.7 Hgb 9.8 Plt 91 K No acute issues overnight Objective - Vital Signs/Intake and Output Vital Signs (last 24 hours): Temp Pulse Resp BP Pulse Ox 98.1 F 85 15 126/69 93 L 05/28/17 08:00 05/28/17 08:00 05/28/17 08:00 05/28/17 08:00 05/28/17 08:00 Intake and Output: 05/28/17 05/28/17 06:59 18:59 Intake Total 240 Output Total 3700 Balance -3460 - Medications Medications: Current Medications Allopurinol (Zyloprim) 100 mg PO DAILY [facility] Last Admin: 05/28/17 09:18 Dose: 100 mg Doxercalciferol (Hectorol) 2 mcg IV MWF [facility] Stop: 06/01/17 23:59 Last Admin: 05/27/17 09:30 Dose: 2 mcg Epoetin Junior (Procrit) 10,000 unit IV F [facility] Stop: 06/01/17 23:59 Last Admin: 05/27/17 17:20 Dose: 10,000 unit Iron Sucrose 100 mg/ Sodium (Chloride) 105 mls @ 105 mls/hr IVPB DAILY [facility] Stop: 05/29/17 14:31 Last Admin: 05/28/17 09:18 Dose: 105 mls/hr Insulin Detemir (Levemir) 12 units SC HS [facility] Last Admin: 05/27/17 21:48 Dose: 12 units Insulin Human Regular (Humulin R) 0 units SC ACHS [facility] PRN Reason: Protocol Last Admin: 05/28/17 06:32 Dose: Not Given Lidocaine (Lidoderm) 1 ea TD DAILY [facility] Last Admin: 05/28/17 09:17 Dose: 1 ea Pantoprazole Sodium (Protonix Ec Tab) 40 mg PO DAILY [facility] Last Admin: 05/28/17 09:18 Dose: 40 mg Sevelamer Carbonate (Renvela) 1.6 gm PO TIDWM [facility] Last Admin: 05/28/17 09:19 Dose: 1.6 gm Vitamin B Complex/Vit C/Folic Acid (Nephro-Juancarlos) 1 tab PO DAILY [facility] Last Admin: 05/28/17 09:18 Dose: 1 tab - Labs Labs: 05/28/17 04:45 05/28/17 04:45 PT 11.7 Seconds (9.8-13.1) 05/24/17 13:30 INR 1.1 (0.9-1.2) 05/24/17 13:30 APTT 27.6 Seconds (25.6-37.1) 05/24/17 13:30 - Constitutional Appears: Non-toxic, No Acute Distress - Head Exam Head Exam: ATRAUMATIC, NORMAL INSPECTION, NORMOCEPHALIC - Eye Exam Eye Exam: EOMI, Normal appearance, PERRL Pupil Exam: NORMAL ACCOMODATION - ENT Exam ENT Exam: Mucous Membranes Moist, Normal Exam - Neck Exam Neck Exam: Full ROM, Normal Inspection - Respiratory Exam Respiratory Exam: Clear to Ausculation Bilateral, NORMAL BREATHING PATTERN. absent: Rales, Rhonchi, Wheezes - Cardiovascular Exam Cardiovascular Exam: REGULAR RHYTHM, RRR, +S1, +S2. absent: JVD - GI/Abdominal Exam GI & Abdominal Exam: Soft, Normal Bowel Sounds. absent: Distended, Guarding, Tenderness, Rebound - Rectal Exam Rectal Exam: Deferred - Extremities Exam Extremities Exam: Full ROM, Normal Capillary Refill, Normal Inspection. absent : Calf Tenderness, Pedal Edema - Back Exam Back Exam: NORMAL INSPECTION - Neurological Exam Neurological Exam: Alert, Awake, CN II-XII Intact, Oriented x3 - Psychiatric Exam Psychiatric exam: Normal Affect, Normal Mood - Skin Skin Exam: Dry, Intact, Pallor, Warm Assessment and Plan - Assessment and Plan (Free Text) Assessment: 71 yo male with history of DM2, HTN, CKD and Gout came in because of back pain and leg pain since 3 days ago accompanied with generalized weakness and uncontrollable tremors. Patient states that he fell at home coming out of shower. Denied SOB, chest pain, fever or chills. In ER found to have BUN/Cr 155/ 11.9 Hyperkalemic K 7.7 acidotic with HCO3 9 and lactic acid 4.3 Patient admitted in ICU with MADONNA on CKD, metabolic acidosis, hyperkalemia . He was started on HD. At present his kidney function improving with Cr trending down to 5.5 , diuresing well 2200 ml last 24 hours.Last had HD yesterday 1. Acute renal failure (ARF) on CKD Acute Patient with BUN/Cr 155/11.6 on admission and HCO3 9 and K 7.7 , Anuric Admitted to ICU Treated with NaHCO3 drip and D50 insulin , kayexalate Nephro consulted Emergent Hemodialysis started, last HD was yesterday 05/27 At present renal function is improving with BUN/Cr 67/5.5 with good urine output 2200 Ml Discussed with nephrology. will hold HD for now and will monitor Started 1/2 NS 2 100 cc/hr since patient feeling a little dizzy and BP in the lower side Check urine Na, Cl, uric acid, urine osmolality Repeat BMp in AM transfer to med/surg 2.Metabolic acidosis resolved most likely secondary to renal failure corrected with NaHCO3 drip and HD 3. Lactic acidosis most likely secondary to metformin use in setting of CKD no signs of sepsis Discontinued metformin 4. Hyperkalemia secondary to renal failure renal diet 5.DM type II with Hypoglycemia initially Started on D10 NS bec of hypoglycemia, now with elevated glucose diabetic diet continue accuchecks with coverage Endo consulted Started on Levemir 12 SQ HS 6. Thrombocytopenia unclear etiology unlikely microangiopathy as per Hematology Platelet count dropped from 137 K -- to as low as 40 , today 91 K no sign of bleeding hematology consulted received 1 dose IV Solumedrol 7. Anemia most likely patient has some degree of chronic anemia secondary to CKD but since Hgb is dropping from 8.3 -- 6.5 unclear if there is any acute blood loss Hematology consulted Transfused 2 units PRBC Epogen and Iron sucrose started 8. HTN (hypertension) Chronic controlled without meds 9. Gout stable uric acid level = 16 now down to 8 10. Knee Pain hx of recent fall at home Left knee xray and bilat hip xray: no fracture , degenerative joint dis Lidoderm patch to left knee 11.DVT prophylaxis SCD no anticoagulation due to low Platelet
--- NOTE | 2017-05-28 10:40 | CP.CCUPN ---
<Raquel Coombs - Last Filed: 05/28/17 11:12> CCU Subjective - Physician Review Subjective (Free Text): 05/28/17 10:41 Patient seen and examined at bedside. Tolerated hemodialysis yesterday s/p cathflow. With normal stool output and significant urine output of 2.2L overnight. Complaint of mild dizziness this AM. Denies chest pain, SOB, weakness or visual changes. CCU Objective - Vital Signs / Intake & Output Vital Signs (Last 4 hours): Vital Signs Temp Pulse Resp BP Pulse Ox 05/28/17 08:00 98.1 F 85 15 126/69 93 L Intake and Output (Last 8hrs): Intake & Output 05/27/17 05/28/17 05/28/17 22:59 06:59 14:59 Intake Total 240 0 Output Total 1500 2200 Balance -1260 -2200 Intake: IV 0 Oral 240 Output: Urine 2200 Urethral (Patel) 2200 Ultrafiltrate 1500 - Physical Exam Head: Positive for: Normocephalic Pupils: Positive for: PERRL Extroacular Muscles: Positive for: EOMI Conjunctiva: Positive for: Normal. Negative for: Icteric Mouth: Positive for: Moist Mucous Membranes Neck: Positive for: Normal Range of Motion. Negative for: JVD Respiratory/Chest: Positive for: Clear to Auscultation, Decreased Breath Sounds. Negative for: Accessory Muscle Use, Wheezes Cardiovascular: Positive for: Regular Rate and Rhythm. Negative for: Murmurs, Rub Abdomen: Positive for: Normal Bowel Sounds. Negative for: Tenderness, Distention Genitourinary Male: Positive for: Other (patel catheter in place-drained 2.2L clear yellow urine overnight) Upper Extremity: Positive for: NORMAL PULSES (right hand IV and left antecubital IV present) Lower Extremity: Positive for: NORMAL PULSES (mild stasis dermatitis ), Other ( right femoral catheter dressing clean/dry/intact). Negative for: CALF TENDERNESS, Cyanosis Neurological: Positive for: GCS=15, Motor Func Grossly Intact, Normal Sensory Function Skin: Positive for: Warm. Negative for: Rashes Psychiatric: Positive for: Alert - Medications Active Medications: Active Medications Generic Name Dose Route Start Last Admin Trade Name Freq PRN Reason Stop Dose Admin Allopurinol 100 mg 05/24/17 09:00 05/28/17 09:18 Zyloprim PO 100 mg DAILY [facility] Administration Doxercalciferol 2 mcg 05/25/17 12:00 05/27/17 09:30 Hectorol IV 06/01/17 23:59 2 mcg MWF [facility] Administration Epoetin Junior 10,000 unit 05/25/17 11:30 05/27/17 17:20 Procrit IV 06/01/17 23:59 10,000 unit MWF [facility] Administration Iron Sucrose 100 mg/ Sodium 105 mls @ 105 mls/hr 05/24/17 14:30 05/28/17 09: 18 Chloride IVPB 05/29/17 14:31 105 mls/hr DAILY [facility] Administration Insulin Detemir 12 units 05/27/17 22:00 05/27/17 21:48 Levemir SC 12 units HS [facility] Administration Insulin Human Regular 0 units 05/26/17 11:30 05/28/17 06:32 Humulin R SC Not Given ACHS [facility] Protocol Lidocaine 1 ea 05/26/17 12:45 05/28/17 09:17 Lidoderm TD 1 ea DAILY [facility] Administration Pantoprazole Sodium 40 mg 05/24/17 09:00 05/28/17 09:18 Protonix Ec Tab PO 40 mg DAILY [facility] Administration Sevelamer Carbonate 1.6 gm 05/24/17 17:00 05/28/17 09:19 Renvela PO 1.6 gm TIDWM [facility] Administration Vitamin B Complex/Vit C/Folic Acid 1 tab 05/24/17 13:45 05/28/17 09:18 Nephro-Juancarlos PO 1 tab DAILY [facility] Administration - Patient Studies Lab Studies: Lab Studies 05/28/17 05/28/17 05/28/17 Range/Units 06:27 04:45 04:45 WBC 13.7 H (4.8-10.8) K/uL RBC 3.30 L (4.40-5.90) Mil/uL Hgb 9.9 L (12.0-18.0) g/dL Hct 30.8 L (35.0-51.0) % MCV 93.1 (80.0-94.0) fl MCH 30.1 (27.0-31.0) pg MCHC 32.3 L (33.0-37.0) g/dL RDW 17.0 H (11.5-14.5) % Plt Count 91 L D (130-400) K/uL Sodium 139 (132-148) mmol/l Potassium 3.7 (3.6-5.0) MMOL/L Chloride 99 (98-107) mmol/L Carbon Dioxide 25 (22-30) mmol/L Anion Gap 19 (10-20) BUN 67 H (9-20) mg/dl Creatinine 5.5 H (0.8-1.5) mg/dL Est GFR ( Amer) 13 Est GFR (Non-Af Amer) 10 POC Glucose (mg/dL) 132 H (65-110) mg/dL Random Glucose 130 H (75-110) mg/dL Calcium 6.7 L (8.4-10.2) mg/dL UF Heparin Interp (Negative) DANDY UFH Low Dose 0.1 % Release DANDY UFH Low Dose 0.5 % Release DANDY UFH High Dose 100 % Release [place]/Lambda Light Chain (()) Free [place] Light Chains (3.3-19.4) mg/L Free Lambda Light Chain (5.7-26.3) mg/L Free [place]/Lambda Ratio (0.26-1.65) 05/27/17 05/27/17 05/27/17 Range/Units 21:04 16:31 11:29 WBC (4.8-10.8) K/uL RBC (4.40-5.90) Mil/uL Hgb (12.0-18.0) g/dL Hct (35.0-51.0) % MCV (80.0-94.0) fl MCH (27.0-31.0) pg MCHC (33.0-37.0) g/dL RDW (11.5-14.5) % Plt Count (130-400) K/uL Sodium (132-148) mmol/l Potassium (3.6-5.0) MMOL/L Chloride (98-107) mmol/L Carbon Dioxide (22-30) mmol/L Anion Gap (10-20) BUN (9-20) mg/dl Creatinine (0.8-1.5) mg/dL Est GFR ( Amer) Est GFR (Non-Af Amer) POC Glucose (mg/dL) 207 H 343 H 398 H (65-110) mg/dL Random Glucose (75-110) mg/dL Calcium (8.4-10.2) mg/dL UF Heparin Interp (Negative) DANDY UFH Low Dose 0.1 % Release DANDY UFH Low Dose 0.5 % Release DANDY UFH High Dose 100 % Release [place]/Lambda Light Chain (()) Free [place] Light Chains (3.3-19.4) mg/L Free Lambda Light Chain (5.7-26.3) mg/L Free [place]/Lambda Ratio (0.26-1.65) 05/25/17 05/25/17 Range/Units 04:35 04:35 WBC (4.8-10.8) K/uL RBC (4.40-5.90) Mil/uL Hgb (12.0-18.0) g/dL Hct (35.0-51.0) % MCV (80.0-94.0) fl MCH (27.0-31.0) pg MCHC (33.0-37.0) g/dL RDW (11.5-14.5) % Plt Count (130-400) K/uL Sodium (132-148) mmol/l Potassium (3.6-5.0) MMOL/L Chloride (98-107) mmol/L Carbon Dioxide (22-30) mmol/L Anion Gap (10-20) BUN (9-20) mg/dl Creatinine (0.8-1.5) mg/dL Est GFR ( Amer) Est GFR (Non-Af Amer) POC Glucose (mg/dL) (65-110) mg/dL Random Glucose (75-110) mg/dL Calcium (8.4-10.2) mg/dL UF Heparin Interp Negative (Negative) DANDY UFH Low Dose 0.1 0 % Release DANDY UFH Low Dose 0.5 0 % Release DANDY UFH High Dose 100 0 % Release [place]/Lambda Light Chain (()) Free [place] Light Chains 130.2 H (3.3-19.4) mg/L Free Lambda Light Chain 81.7 H (5.7-26.3) mg/L Free [place]/Lambda Ratio 1.59 (0.26-1.65) Laboratory Results - last 24 hr 05/25/17 05/25/17 05/27/17 04:35 04:35 11:29 WBC RBC Hgb Hct MCV MCH MCHC RDW Plt Count Sodium Potassium Chloride Carbon Dioxide Anion Gap BUN Creatinine Est GFR ( Amer) Est GFR (Non-Af Amer) POC Glucose (mg/dL) 398 H Random Glucose Calcium UF Heparin Interp Negative DANDY UFH Low Dose 0.1 0 DANDY UFH Low Dose 0.5 0 DANDY UFH High Dose 100 0 [place]/Lambda Light Chain Free [place] Light Chains 130.2 H Free Lambda Light Chain 81.7 H Free [place]/Lambda Ratio 1.59 05/27/17 05/27/17 05/28/17 16:31 21:04 04:45 WBC 13.7 H RBC 3.30 L Hgb 9.9 L Hct 30.8 L MCV 93.1 MCH 30.1 MCHC 32.3 L RDW 17.0 H Plt Count 91 L D Sodium Potassium Chloride Carbon Dioxide Anion Gap BUN Creatinine Est GFR ( Amer) Est GFR (Non-Af Amer) POC Glucose (mg/dL) 343 H 207 H Random Glucose Calcium UF Heparin Interp DANDY UFH Low Dose 0.1 DANDY UFH Low Dose 0.5 DANDY UFH High Dose 100 [place]/Lambda Light Chain Free [place] Light Chains Free Lambda Light Chain Free [place]/Lambda Ratio 05/28/17 05/28/17 04:45 06:27 WBC RBC Hgb Hct MCV MCH MCHC RDW Plt Count Sodium 139 Potassium 3.7 Chloride 99 Carbon Dioxide 25 Anion Gap 19 BUN 67 H Creatinine 5.5 H Est GFR ( Amer) 13 Est GFR (Non-Af Amer) 10 POC Glucose (mg/dL) 132 H Random Glucose 130 H Calcium 6.7 L UF Heparin Interp DANDY UFH Low Dose 0.1 DANDY UFH Low Dose 0.5 DANDY UFH High Dose 100 [place]/Lambda Light Chain Free [place] Light Chains Free Lambda Light Chain Free [place]/Lambda Ratio Review of Systems - Review of Systems All systems: reviewed and no additional remarkable complaints except (for what is mentioned in subjective) Critical Care Progress Note - Prophylaxis GI Prophylaxis GI: PPI - Prophylaxis DVT Prophylaxis DVT: SCDs (only, pt with thrombocytopenia of unknown etiology) - Nutrition Nutrition: Nutrition Category Date Time Status Renal Diet [DIET] Diets 05/24/17 Dinner Active Assessment/Plan - Assessment and Plan (Free Text) Assessment: 71 yr old M with PMHx of NIDDM Type 2, CKD, HTN and gout admitted to ICU for Acute on CKD requiring first time HD, metabolic acidosis, hyperkalemia and hypoglycemia. Hyperkalemia and metabolic acidosis have resolved. Patient is now on hemodialysis scheduled MWF, tolerated HD session yesterday s/p cathflow. MADONNA and thrombocytopenia slowly improving. Patient is stable for transfer to [facility]. Will hold hemodialysis tomorrow and reassess further HD need pending kidney function. 1. Acute on CKD 2. Hyperkalemia 3. Anemia of chronic disease 4. DM Type 2- uncontrolled 5. Acute Thrombocytopenia of unknown etiology 6. HTN-controlled 7. Gout- controlled 8. GI prophylaxis 9. DVT prophylaxis Plan 1. Bun/Cr 67/5.5 -mildly improved s/p 3 sessions HD via right femoral line . HD yesterday s/p cathflow and scheduled MWF . Nephrology on board, will follow recommendations. Hold hemodialysis tomorrow and reassess need, discontinue patel , f/u urine lytes. 2. resolved, K+ 3.7 this AM, EKG normal sinus with prolonged QTc 484, Monitor K+ 3. stable, H/H 9.9/30.8 s/p 2 units leukocyte reduced pRBC's transfused 05/24/17 , c/w Venofer 100mg IV QD x 5 days 4. pt hyperglycemic this AM, HbA1c 8.2 on 05/24/17, moderate CHO diet, insulin Levemir 12 units SCHS and regular insulin low dose coverage scale SC ACHS, endocrinology on board, will follow recommendations 5. improved, plts 90 this AM (137 on 05/23/17) coags wnl, retic ct 1.8, haptoglobin 157, total bilirubin wnl. Heme/onc on board, will follow recommendations: poss bone marrow eval if no improvement in the next couple of days 6. chronic, off of home med, continue to monitor BP 7. chronic, continue Allopurinol 100mg PO QD 8. Protonix 40mg PO QD 9. SCD's for now , avoid Heparin or Lovenox as pt has acute thrombocytopenia of unknown etiology - Date & Time Date: 05/28/17 Time: 07:30 <Marcos Leigh - Last Filed: 05/28/17 14:08> Critical Care Progress Note - Nutrition Nutrition: Nutrition Category Date Time Status Renal Diet [DIET] Diets 05/24/17 Dinner Active Assessment/Plan - Assessment and Plan (Free Text) Plan: Attestation: Patient seen and examined at the bedside with Resident Dr. Arianne Coombs; and I agree with her outline of plans and management as documented below and discussed on AM rounds today, May 28, 2017. Any exceptions or additions are listed in my personal note that follows and reflects my review of all applicable clinical data, and participation in the care of the patient throughout the day in ICU.
--- NOTE | 2017-05-28 11:38 | CP.PCM.PN ---
Subjective - Date & Time of Evaluation Date of Evaluation: 05/28/17 Time of Evaluation: 11:36 - Subjective Subjective: pt is seen and examined, follow up consult is dictated #[id number] polyuria r/o osmotic vs electrolyte induced diuresis check urine na,k+, cl+, glucose, urea , osmolality will hold hd in am, bmp in am, this evening Objective - Vital Signs/Intake and Output Vital Signs (last 24 hours): Temp Pulse Resp BP Pulse Ox 98.1 F 85 15 126/69 93 L 05/28/17 08:00 05/28/17 08:00 05/28/17 08:00 05/28/17 08:00 05/28/17 08:00 Intake and Output: 05/28/17 05/28/17 06:59 18:59 Intake Total 240 Output Total 3700 Balance -3460 - Medications Medications: Current Medications Allopurinol (Zyloprim) 100 mg PO DAILY [facility] Last Admin: 05/28/17 09:18 Dose: 100 mg Doxercalciferol (Hectorol) 2 mcg IV MWF [facility] Stop: 06/01/17 23:59 Last Admin: 05/27/17 09:30 Dose: 2 mcg Epoetin Junior (Procrit) 10,000 unit IV MWF [facility] Stop: 06/01/17 23:59 Last Admin: 05/27/17 17:20 Dose: 10,000 unit Iron Sucrose 100 mg/ Sodium (Chloride) 105 mls @ 105 mls/hr IVPB DAILY [facility] Stop: 05/29/17 14:31 Last Admin: 05/28/17 09:18 Dose: 105 mls/hr Insulin Detemir (Levemir) 12 units SC HS [facility] Last Admin: 05/27/17 21:48 Dose: 12 units Insulin Human Regular (Humulin R) 0 units SC ACHS [facility] PRN Reason: Protocol Last Admin: 05/28/17 11:13 Dose: 6 units Lidocaine (Lidoderm) 1 ea TD DAILY [facility] Last Admin: 05/28/17 09:17 Dose: 1 ea Pantoprazole Sodium (Protonix Ec Tab) 40 mg PO DAILY [facility] Last Admin: 05/28/17 09:18 Dose: 40 mg Sevelamer Carbonate (Renvela) 1.6 gm PO TIDWM [facility] Last Admin: 05/28/17 09:19 Dose: 1.6 gm Vitamin B Complex/Vit C/Folic Acid (Nephro-Juancarlos) 1 tab PO DAILY [facility] Last Admin: 05/28/17 09:18 Dose: 1 tab - Labs Labs: 05/28/17 04:45 05/28/17 04:45 PT 11.7 Seconds (9.8-13.1) 05/24/17 13:30 INR 1.1 (0.9-1.2) 05/24/17 13:30 APTT 27.6 Seconds (25.6-37.1) 05/24/17 13:30
[2017-05-28] MEDS: Sodium Chloride 0.45% 1,000 ML IV SCH ×3 (12:00→22:08)
[2017-05-28] MEDS: Insulin Detemir 100 Units/ml Inj SC SCH (22:54)
--- NOTE | 2017-05-29 00:59 | PN ---
ENDOCRINOLOGY FOLLOWUP NOTE DATE: LOCATION: Room 665. This is a 71-year-old male with recent uncontrolled type 2 insulin-requiring diabetes developing post IV steroid therapy given in the ICU and is now being followed closely for metabolic management. He actually presented here with symptomatic hypoglycemia concomitant with the acute renal failure on the background of chronic kidney disease as noted. His latest chemistry showed a BUN of 67, sodium 139, potassium 3.7, chloride 99, CO2 25, glucose 130 and creatinine 5.5. His glucose levels today have ranged from 132 to 348 and 401 mg/dl. So at this time, we will modify once again his basal insulin and add Levemir at 10 units subcu at 09:00 a.m. daily as ordered to start tomorrow morning. We will increase the Levemir to 14 units subcu at bedtime daily to start tonight. We will titrate incrementally as indicated to optimize metabolic control. We will also continue the low-dose correction scale using regular insulin as ordered. We will obtain serial chemistries and supplement accordingly needed. We will follow this. Roseanne Mccollum MD
--- NOTE | 2017-05-29 05:15 | CP.PCM.PN ---
Subjective - Date & Time of Evaluation Date of Evaluation: 05/28/17 Time of Evaluation: 13:00 - Subjective Subjective: Feeling better Objective - Vital Signs/Intake and Output Vital Signs (last 24 hours): Temp Pulse Resp BP Pulse Ox 98.1 F 81 20 144/73 95 05/29/17 00:24 05/29/17 00:24 05/29/17 00:24 05/29/17 00:24 05/29/17 00:24 - Medications Medications: Current Medications Allopurinol (Zyloprim) 100 mg PO DAILY [facility] Last Admin: 05/28/17 09:18 Dose: 100 mg Doxercalciferol (Hectorol) 2 mcg IV [facility] Stop: 06/01/17 23:59 Last Admin: 05/27/17 09:30 Dose: 2 mcg Epoetin Junior (Procrit) 10,000 unit IV [facility] Stop: 06/01/17 23:59 Last Admin: 05/27/17 17:20 Dose: 10,000 unit Iron Sucrose 100 mg/ Sodium (Chloride) 105 mls @ 105 mls/hr IVPB DAILY [facility] Stop: 05/29/17 14:31 Last Admin: 05/28/17 09:18 Dose: 105 mls/hr Sodium Chloride (Sodium Chloride 0.45%) 1,000 mls @ 100 mls/hr IV .Q10H [facility] Stop: 05/29/17 11:44 Last Admin: 05/28/17 22:08 Dose: Not Given Insulin Detemir (Levemir) 10 units SC DAILY [facility] Insulin Detemir (Levemir) 14 units SC HS [facility] Last Admin: 05/28/17 22:54 Dose: 14 units Insulin Human Regular (Humulin R) 0 units SC ACHS [facility] PRN Reason: Protocol Last Admin: 05/28/17 22:31 Dose: Not Given Lidocaine (Lidoderm) 1 ea TD DAILY [facility] Last Admin: 05/28/17 09:17 Dose: 1 ea Pantoprazole Sodium (Protonix Ec Tab) 40 mg PO DAILY [facility] Last Admin: 05/28/17 09:18 Dose: 40 mg Sevelamer Carbonate (Renvela) 1.6 gm PO TIDWM [facility] Last Admin: 05/28/17 16:42 Dose: 1.6 gm Vitamin B Complex/Vit C/Folic Acid (Nephro-Juancarlos) 1 tab PO DAILY [facility] Last Admin: 05/28/17 09:18 Dose: 1 tab - Labs Labs: 05/28/17 04:45 05/28/17 04:45 PT 11.7 Seconds (9.8-13.1) 05/24/17 13:30 INR 1.1 (0.9-1.2) 05/24/17 13:30 APTT 27.6 Seconds (25.6-37.1) 05/24/17 13:30 - Head Exam Head Exam: ATRAUMATIC - Eye Exam Eye Exam: Normal appearance - ENT Exam ENT Exam: Mucous Membranes Dry - Respiratory Exam Respiratory Exam: NORMAL BREATHING PATTERN - Cardiovascular Exam Cardiovascular Exam: +S1, +S2 - GI/Abdominal Exam GI & Abdominal Exam: Normal Bowel Sounds Assessment and Plan (1) Anemia Assessment & Plan: chronic disease and renal disease procrit per renal s/p transfusion support Status: Acute (2) Thrombocytopenia Assessment & Plan: improving Status: Acute
[2017-05-29 07:24] LABS: BASO % 0.2 % (0.0-2.0); EOS # 0.1 K/uL (0.0-0.7); EOS % 1.2 % (0.0-4.0); HEMATOCRIT 30.9 % (35.0-51.0); LYMPH # 2.5 K/uL (1.0-4.3); LYMPH % 22.5 % (20.0-40.0); MEAN CELL VOLUME 94.4 fl (80.0-94.0); MEAN CORPUSCULAR HEMOGLOBIN 31.2 pg (27.0-31.0); MEAN PLATELET VOLUME 10.9 fl (7.2-11.7); MONO % 9.4 % (0.0-10.0); NEUT # 7.4 K/uL (1.8-7.0); NEUT % 66.7 % (50.0-75.0); NRBC % 0.2 % (0.0-0.0); RED CELL DISTRIBUTION WIDTH 16.5 % (11.5-14.5); WHITE BLOOD COUNT 11.1 K/uL (4.8-10.8)
[2017-05-29] MEDS: Insulin Regular 100 units/ml SC SCH ×4 (07:43→22:09)
[2017-05-29 07:58] LABS: CALCIUM 6.1 mg/dL (8.4-10.2); POTASSIUM 3.5 MMOL/L (3.6-5.0)
[2017-05-29 07:59] LABS: PHOSPHOROUS 3.9 mg/dl (2.5-4.5)
[2017-05-29] MEDS ORDERED: Insulin Detemir 100 Units/ml Inj SC SCH (09:00)
[2017-05-29] MEDS: Lidocaine 5% Patch TD SCH (09:06)
[2017-05-29] MEDS: Sevelamer Carb 0.8 gm/Packet PO SCH ×3 (09:10→16:47)
[2017-05-29] MEDS: Pantoprazole 40 mg EC Tab PO SCH (09:10)
[2017-05-29] MEDS: Multivitamin Vitamin B Complex (Nephro-Vite) Tab PO SCH (09:10)
[2017-05-29] MEDS: Sodium Chloride 0.45% 1,000 ML IV SCH ×2 (09:11→21:15)
--- NOTE | 2017-05-29 09:38 | CP.PCM.PN ---
Subjective - Date & Time of Evaluation Date of Evaluation: 05/29/17 Time of Evaluation: 09:30 - Subjective Subjective: Patient seen nad examined bedside. Feeling better. Hemodynamically stable, afebrile.Off HD on IVF. With good urine out put 3700 ml last 24 hours.Kidney function improving BUN/Cr 66/4.0 No acute issues overnight Objective - Vital Signs/Intake and Output Vital Signs (last 24 hours): Temp Pulse Resp BP Pulse Ox 98.0 F 90 19 117/72 94 L 05/29/17 07:39 05/29/17 07:39 05/29/17 07:39 05/29/17 07:39 05/29/17 07:39 - Medications Medications: Current Medications Allopurinol (Zyloprim) 100 mg PO DAILY [facility] Last Admin: 05/29/17 09:11 Dose: 100 mg Doxercalciferol (Hectorol) 2 mcg IV MWF [facility] Stop: 06/01/17 23:59 Last Admin: 05/27/17 09:30 Dose: 2 mcg Epoetin Junior (Procrit) 10,000 unit IV MWF [facility] Stop: 06/01/17 23:59 Last Admin: 05/27/17 17:20 Dose: 10,000 unit Iron Sucrose 100 mg/ Sodium (Chloride) 105 mls @ 105 mls/hr IVPB DAILY [facility] Stop: 05/29/17 14:31 Last Admin: 05/28/17 09:18 Dose: 105 mls/hr Sodium Chloride (Sodium Chloride 0.45%) 1,000 mls @ 100 mls/hr IV .Q10H [facility] Stop: 05/29/17 11:44 Last Admin: 05/29/17 09:11 Dose: 100 mls/hr Insulin Detemir (Levemir) 10 units SC DAILY [facility] Last Admin: 05/29/17 09:08 Dose: 10 units Insulin Detemir (Levemir) 14 units SC HS [facility] Last Admin: 05/28/17 22:54 Dose: 14 units Insulin Human Regular (Humulin R) 0 units SC ACHS [facility] PRN Reason: Protocol Last Admin: 05/29/17 07:43 Dose: Not Given Lidocaine (Lidoderm) 1 ea TD DAILY [facility] Last Admin: 05/29/17 09:06 Dose: 1 ea Pantoprazole Sodium (Protonix Ec Tab) 40 mg PO DAILY [facility] Last Admin: 05/29/17 09:10 Dose: 40 mg Sevelamer Carbonate (Renvela) 1.6 gm PO TIDWM [facility] Last Admin: 05/29/17 09:10 Dose: 1.6 gm Vitamin B Complex/Vit C/Folic Acid (Nephro-Juancarlos) 1 tab PO DAILY [facility] Last Admin: 05/29/17 09:10 Dose: 1 tab - Labs Labs: 05/29/17 06:05 05/29/17 06:05 PT 11.7 Seconds (9.8-13.1) 05/24/17 13:30 INR 1.1 (0.9-1.2) 05/24/17 13:30 APTT 27.6 Seconds (25.6-37.1) 05/24/17 13:30 - Constitutional Appears: Non-toxic, No Acute Distress - Head Exam Head Exam: ATRAUMATIC, NORMAL INSPECTION, NORMOCEPHALIC - Eye Exam Eye Exam: EOMI, Normal appearance, PERRL Pupil Exam: NORMAL ACCOMODATION - ENT Exam ENT Exam: Mucous Membranes Moist, Normal Exam - Neck Exam Neck Exam: Full ROM, Normal Inspection - Respiratory Exam Respiratory Exam: Clear to Ausculation Bilateral, NORMAL BREATHING PATTERN. absent: Rales, Rhonchi, Wheezes - Cardiovascular Exam Cardiovascular Exam: REGULAR RHYTHM, RRR, +S1, +S2. absent: JVD - GI/Abdominal Exam GI & Abdominal Exam: Soft, Normal Bowel Sounds. absent: Distended, Guarding, Tenderness, Rebound - Rectal Exam Rectal Exam: Deferred - Extremities Exam Extremities Exam: Full ROM, Normal Capillary Refill, Normal Inspection. absent : Pedal Edema - Back Exam Back Exam: NORMAL INSPECTION - Neurological Exam Neurological Exam: Alert, Awake, CN II-XII Intact, Oriented x3 - Psychiatric Exam Psychiatric exam: Normal Affect, Normal Mood - Skin Skin Exam: Dry, Pallor, Warm Assessment and Plan - Assessment and Plan (Free Text) Assessment: 71 yo male with history of DM2, HTN, CKD and Gout came in because of back pain and leg pain since 3 days ago accompanied with generalized weakness and uncontrollable tremors. Patient states that he fell at home coming out of shower. Denied SOB, chest pain, fever or chills. In ER found to have BUN/Cr 155/ 11.9 Hyperkalemic K 7.7 acidotic with HCO3 9 and lactic acid 4.3 Patient admitted in ICU with MADONNA on CKD, metabolic acidosis, hyperkalemia . He was started on HD. At present his kidney function improving with Cr trending down to 4, diuresing well 3700 ml last 24 hours. Off HD . 1. Acute renal failure (ARF) on CKD Acute Patient with BUN/Cr 155/11.6 on admission and HCO3 9 and K 7.7 , Anuric was admitted to ICU Treated with NaHCO3 drip and D50 insulin , kayexalate Nephro consulted Emergent Hemodialysis started, last HD was 05/27 At present renal function is improving with BUN/Cr 66/4.0 with good urine output 3700 Ml As per nephrology will d/c HD and HD catheter continue 1/2 NS @ 100 cc/hr since patient seems to be in polyuric phase Check urine Na, Cl, uric acid, urine osmolality Repeat BMP in AM 2.Metabolic acidosis resolved most likely secondary to renal failure corrected with NaHCO3 drip and HD now off HD 3. Lactic acidosis most likely secondary to metformin use in setting of CKD no signs of sepsis Discontinued metformin 4. Hyperkalemia secondary to renal failure renal diet 5.DM type II with Hypoglycemia and hyperglycemia initially Started on D10 NS bec of hypoglycemia, now with elevated glucose most likley secondary to steroid use diabetic diet continue accuchecks with coverage Endo consulted on Levemir 14 SQ HS and lispro 12 unit SQ AC 6. Thrombocytopenia unclear etiology unlikely microangiopathy as per Hematology Platelet count dropped from 137 K -- to as low as 40 , today 102 K no sign of bleeding hematology consulted received 1 dose IV Solumedrol Will give again solumedrol IV today and rakan fast 7. Anemia most likely patient has some degree of chronic anemia secondary to CKD but since Hgb is dropping from 8.3 -- 6.5 unclear if there is any acute blood loss Hematology consulted Transfused 2 units PRBC Epogen and Iron sucrose started Hgb10 8. HTN (hypertension) Chronic controlled without meds 9. Gout stable uric acid level = 16 now down to 8 10. Knee Pain hx of recent fall at home Left knee xray and bilat hip xray: no fracture , degenerative joint dis Lidoderm patch to left knee 11.DVT prophylaxis SCD no anticoagulation due to low Platelet Dispo: plan for d/c home.denied by insurance for [facility] transfer . Will refer for home health care services
--- NOTE | 2017-05-29 09:54 | CP.PCM.PN ---
Subjective - Date & Time of Evaluation Date of Evaluation: 05/29/17 Time of Evaluation: 09:51 - Subjective Subjective: pt is seen and examined, follow up consult is dictated #[id number] 1. rosaura 2. acute gouty arthritis 3. dm 4. htn 5. thrombocytopenia 6. sec .HPTH d/c rt fv catheter by surgery resident,and daphnie for bleeding d/c hemodialysis check bmp, uric acid, cbc in am will start solumedrol 20 mg ivpb q 12hr x 2 doses, then prednisone 20 mg po qd x2 days and taperoff 5mg every 2 days and stop Objective - Vital Signs/Intake and Output Vital Signs (last 24 hours): Temp Pulse Resp BP Pulse Ox 98.0 F 90 19 117/72 94 L 05/29/17 07:39 05/29/17 07:39 05/29/17 07:39 05/29/17 07:39 05/29/17 07:39 - Medications Medications: Current Medications Allopurinol (Zyloprim) 100 mg PO DAILY [facility] Last Admin: 05/29/17 09:11 Dose: 100 mg Doxercalciferol (Hectorol) 2 mcg IV MWF [facility] Stop: 06/01/17 23:59 Last Admin: 05/27/17 09:30 Dose: 2 mcg Epoetin Junior (Procrit) 10,000 unit IV F [facility] Stop: 06/01/17 23:59 Last Admin: 05/27/17 17:20 Dose: 10,000 unit Iron Sucrose 100 mg/ Sodium (Chloride) 105 mls @ 105 mls/hr IVPB DAILY [facility] Stop: 05/29/17 14:31 Last Admin: 05/28/17 09:18 Dose: 105 mls/hr Sodium Chloride (Sodium Chloride 0.45%) 1,000 mls @ 100 mls/hr IV .Q10H [facility] Stop: 05/29/17 11:44 Last Admin: 05/29/17 09:11 Dose: 100 mls/hr Methylprednisolone 20 mg/ (Sodium Chloride) 50 mls @ 100 mls/hr IVPB Q12 [facility] Stop: 05/30/17 09:46 Insulin Detemir (Levemir) 10 units SC DAILY [facility] Last Admin: 05/29/17 09:08 Dose: 10 units Insulin Detemir (Levemir) 14 units SC HS [facility] Last Admin: 05/28/17 22:54 Dose: 14 units Insulin Human Regular (Humulin R) 0 units SC ACHS [facility] PRN Reason: Protocol Last Admin: 05/29/17 07:43 Dose: Not Given Lidocaine (Lidoderm) 1 ea TD DAILY [facility] Last Admin: 05/29/17 09:06 Dose: 1 ea Pantoprazole Sodium (Protonix Ec Tab) 40 mg PO DAILY [facility] Last Admin: 05/29/17 09:10 Dose: 40 mg Prednisone (Prednisone Tab) 20 mg PO DAILY [facility] Sevelamer Carbonate (Renvela) 1.6 gm PO TIDWM [facility] Last Admin: 05/29/17 09:10 Dose: 1.6 gm Vitamin B Complex/Vit C/Folic Acid (Nephro-Juancarlos) 1 tab PO DAILY [facility] Last Admin: 05/29/17 09:10 Dose: 1 tab - Labs Labs: 05/29/17 06:05 05/29/17 06:05 PT 11.7 Seconds (9.8-13.1) 05/24/17 13:30 INR 1.1 (0.9-1.2) 05/24/17 13:30 APTT 27.6 Seconds (25.6-37.1) 05/24/17 13:30
[2017-05-29] MEDS: methylPREDNISolone 20 MG in Sodium Chloride 0.9% 50 ML IVPB SCH ×2 (11:20→22:07)
[2017-05-29] MEDS ORDERED: Influenza Vaccine 18yr & older 0.5 ML/45 MCG SYR IM ONE (12:27)
[2017-05-29] MEDS: Doxercalciferol 4 mcg/2 ml Inj IV SCH (13:12)
[2017-05-29] MEDS: EPOETIN ALFA 10,000 UNIT/ML ML IV SCH (13:13)
[2017-05-29] MEDS: Insulin Detemir 100 Units/ml Inj SC SCH (22:08)
--- NOTE | 2017-05-30 02:41 | PN ---
FOLLOWUP RENAL CONSULTATION DATE: LOCATION: The patient is located in room 665, bed 2. REQUESTED BY: Rohan Culver MD REASON FOR FOLLOWUP: Acute renal failure, anemia and thrombocytopenia, for further evaluation and for possible hemodialysis continuation. HISTORY OF PRESENT ILLNESS: Mr. Malvin Stallworth is a 71-year-old elderly male with a past medical history significant for long-standing hypertension, diabetes, who was admitted with chief complaints of nausea, vomiting, abdominal pain, feeling weak and tired and found to have elevated BUN and creatinine. The patient was taking lisinopril and metformin. The patient was found to have renal failure, oliguric requiring initiation of the hemodialysis. The patient is feeling much better. The patient claims he has a good urine output. No chest pain, no palpitations, no fever, no cough. Complains of pain in both knee joints getting worse, difficult to ambulate. PHYSICAL EXAMINATION: VITAL SIGNS: Vital signs this morning are as follows: Blood pressure 126/69, pulse 85, respirations 15, temperature 98.1, saturation 93%. Height 5 feet 6 inches, weight is 175 pounds. GENERAL: Mr. Malvin Stallworth is a 71-year-old elderly male, moderately built, moderately nourished, not in acute distress. HEENT: Pupils are normal, reactive to light and accommodation. Conjunctivae pink. Sclerae anicteric. Tongue is moist. Trachea is midline. LUNGS: Symmetry on both sides, bilateral breath sounds present and clear on auscultation. CARDIOVASCULAR SYSTEM: Kingsley at the fifth intercostal space, midclavicular line, S1 and S2 audible. No murmur or gallop. ABDOMEN: Normal in appearance. Soft and tympanic. No guarding. No rigidity. No hepatosplenomegaly. CENTRAL NERVOUS SYSTEM: The patient is alert, awake, and oriented x3. Nonfocal on examination. Cranial nerves II through XII grossly intact. Sensory and motor system is within normal limits. EXTREMITIES: No cyanosis. No clubbing. No edema. CURRENT MEDICATIONS: Includes as follows: Hectorol 3 times a week with dialysis and Humalog 75/25 12 units subcutaneous before breakfast and Humulin also sliding scale and Levemir 14 units subcutaneous at bed time, Lidoderm patch to knee joint, Nephro-Juancarlos 1 tablet daily, Procrit 10,000 units 3 times a week Thursday, Thursday, and Thursday, Protonix 40 mg p.o. daily, Renvela 1.6 gm p.o. t.i.d. and allopurinol 100 mg p.o. daily. LABORATORY DATA: Includes as follows: WBC 11.1, hemoglobin 10.2, hematocrit is 30.9, and platelets 102. Sodium 137, potassium 3.5, chloride 100, CO2 of 24, BUN 66, creatinine 4.0. Glucose is 162, calcium 6.1, phosphorus 3.9. His I and O's in the last 24 hours, intake is 240 output is 3700 as of on 05/28/2017. No I and O's are available from 05/29/2017 so far. IMPRESSION: In summary, Mr. Malvin Stallworth is a 71-year-old elderly male with history of hypertension, diabetes, was admitted with weakness, nausea, vomiting and lower abdominal pain, decreased BUN and creatinine, lactic acidosis and oliguria, hyperkalemia, and metabolic acidosis. 1. Acute renal failure, most likely secondary to metformin and lisinopril. 2. Anemia. Hemoglobin and hematocrit is improving slowly. 3. Thrombocytopenia. Etiology is not clear, but platelets are improving. 4. Hypocalcemia, most likely secondary to renal failure. 5. Acute gouty arthritis. PLAN: We will give Solu-Medrol 20 mg q. 12 hours today and from tomorrow we will change it to prednisone 20 mg p.o. daily and taper off 5 mg every 2 to 3 days. Continue allopurinol and repeat BMP, CBC, phosphorous, and albumin level in a.m. We will recommend to discontinue catheter and watch for bleeding. We will follow with you. Thank you for allowing me to participate in your patient's care. Naveen Schwartz MD
--- NOTE | 2017-05-30 03:01 | PN ---
DATE: ENDO FOLLOWUP NOTE LOCATION: Room 665. This is a 71-year-old male with recent uncontrolled type 2 insulin-requiring diabetes presenting here actually with symptomatic hypoglycemia, but received IV steroid therapy with supervening hyperglycemic accelerations as noted thereof. He has still ongoing methylprednisolone. He also has ongoing methylprednisolone every 12 hours given as 20 mg as noted. His latest chemistries showed a BUN of 66, sodium 137, potassium 3.5, chloride 100, CO2 is 24, glucose 162 and creatinine 4.0. His glucose values are still fluctuating with recent hyperglycemic accelerations as noted thereof and glucose values have ranged from 289-314 and 359 mg/dL. So at this time we will modify his current insulin regimen and add Humalog 75/25 given as 12 units before breakfast as ordered. We will continue the basal insulin given as Levemir as 14 units subcu at bedtime daily with ongoing regular insulin coverage as given. We will titrate incremental as indicated to optimize metabolic control. We will follow and advise accordingly. Roseanne Mccollum MD
[2017-05-30 06:26] LABS: URIC ACID 5.4 mg/Dl (3.5-8.5)
[2017-05-30 06:31] LABS: BASO % 0.1 % (0.0-2.0); HEMATOCRIT 29.8 % (35.0-51.0); LYMPH # 1.2 K/uL (1.0-4.3); LYMPH % 13.4 % (20.0-40.0); MEAN CELL VOLUME 95.2 fl (80.0-94.0); MEAN CORPUSCULAR HEMOGLOBIN 31.5 pg (27.0-31.0); MEAN CORPUSCULAR HGB CONC 33.1 g/dL (33.0-37.0); MEAN PLATELET VOLUME 10.7 fl (7.2-11.7); MONO # 0.4 K/uL (0.0-0.8); MONO % 4.5 % (0.0-10.0); NEUT # 7.2 K/uL (1.8-7.0); NRBC % 0.3 % (0.0-0.0); RED CELL DISTRIBUTION WIDTH 16.3 % (11.5-14.5); WHITE BLOOD COUNT 8.8 K/uL (4.8-10.8)
[2017-05-30 06:45] LABS: POTASSIUM 3.9 MMOL/L (3.6-5.0)
[2017-05-30 06:50] LABS: CALCIUM 5.9 mg/dL (8.4-10.2)
[2017-05-30] MEDS: Insulin Regular 100 units/ml SC SCH ×2 (07:09→12:36)
[2017-05-30] MEDS ORDERED: Insulin Lispro Mix 75/25 100 units/ml (HumaLog) 10ml SC SCH ×2 (07:30→16:30)
[2017-05-30 07:31] VITALS: BP 137/71; PULSE 78; RESP 20; TEMP 98; O2SAT 95
[2017-05-30] MEDS: Sodium Chloride 0.45% 1,000 ML IV SCH (09:00)
[2017-05-30] MEDS: Multivitamin Vitamin B Complex (Nephro-Vite) Tab PO SCH (09:00)
[2017-05-30] MEDS: Pantoprazole 40 mg EC Tab PO SCH (09:00)
[2017-05-30] MEDS: methylPREDNISolone 20 MG in Sodium Chloride 0.9% 50 ML IVPB SCH (09:00)
[2017-05-30] MEDS: Lidocaine 5% Patch TD SCH (09:01)
[2017-05-30] MEDS: Sevelamer Carb 0.8 gm/Packet PO SCH ×2 (09:01→12:44)
--- NOTE | 2017-05-30 09:51 | CP.PCM.DIS ---
Provider - Provider Date of Admission: 05/23/17 17:36 Attending physician: Rohan Culver MD Primary care physician: Dr Cabello Consults: Nephro: Dr Cabello Endo : DR Mccollum Time Spent in preparation of Discharge (in minutes): 40 Diagnosis - Discharge Diagnosis (1) Acute renal failure (ARF) Status: Acute (2) Anemia Status: Chronic (3) Arthritis Status: Chronic (4) Gout Status: Acute (5) Hypoglycemia Status: Chronic (6) Thrombocytopenia Status: Acute (7) DM (diabetes mellitus) Status: Chronic (8) HTN (hypertension) Status: Chronic Hospital Course - Lab Results Lab Results: Micro Results 05/24/17 06:30 Urine,Abdullahi Urine Culture - Final No Growth (<1,000 CFU/ML) Most Recent Lab Values WBC 8.8 K/uL (4.8-10.8) 05/30/17 04:00 RBC 3.13 Mil/uL (4.40-5.90) L 05/30/17 04:00 Hgb 9.9 g/dL (12.0-18.0) L 05/30/17 04:00 Hct 29.8 % (35.0-51.0) L 05/30/17 04:00 MCV 95.2 fl (80.0-94.0) H 05/30/17 04:00 MCH 31.5 pg (27.0-31.0) H 05/30/17 04:00 MCHC 33.1 g/dL (33.0-37.0) 05/30/17 04:00 RDW 16.3 % (11.5-14.5) H 05/30/17 04:00 Plt Count 102 K/uL (130-400) L 05/30/17 04:00 MPV 10.7 fl (7.2-11.7) 05/30/17 04:00 Neut % (Auto) 82.0 % (50.0-75.0) H 05/30/17 04:00 Lymph % (Auto) 13.4 % (20.0-40.0) L 05/30/17 04:00 [place] % (Auto) 4.5 % (0.0-10.0) 05/30/17 04:00 Eos % (Auto) 0.0 % (0.0-4.0) 05/30/17 04:00 Baso % (Auto) 0.1 % (0.0-2.0) 05/30/17 04:00 Neut # 7.2 K/uL (1.8-7.0) H 05/30/17 04:00 Lymph # 1.2 K/uL (1.0-4.3) 05/30/17 04:00 [place] # 0.4 K/uL (0.0-0.8) 05/30/17 04:00 Eos # 0.0 K/uL (0.0-0.7) 05/30/17 04:00 Baso # 0.0 K/uL (0.0-0.2) 05/30/17 04:00 Neutrophils % (Manual) 59 % (42-75) 05/24/17 12:10 Band Neutrophils % 2 % (0-2) 05/24/17 12:10 Lymphocytes % (Manual) 29 % (20-50) 05/24/17 12:10 Monocytes % (Manual) 9 % (0-10) 05/24/17 12:10 Basophils % (Manual) 1 % (0-2) 05/24/17 12:10 Platelet Estimate Markedly decreased (NORMAL) L 05/24/17 12:10 Large Platelets Present 05/24/17 12:10 Hypochromasia (manual) Marked 05/24/17 12:10 Poikilocytosis (manual Slight 05/24/17 12:10 Anisocytosis (manual) Slight 05/24/17 12:10 Ovalocytes Slight 05/24/17 12:10 Stomatocytes Slight 05/24/17 12:10 Retic Count 1.8 % (0.5-1.5) H 05/25/17 04:35 Haptoglobin 157 mg/dL (43-212) 05/24/17 10:00 PT 11.7 Seconds (9.8-13.1) 05/24/17 13:30 INR 1.1 (0.9-1.2) 05/24/17 13:30 APTT 27.6 Seconds (25.6-37.1) 05/24/17 13:30 Fibrinogen 306 mg/dl (200-400) 05/24/17 13:30 [id number] Inhibitor 67 % Activity (68-163) L 05/24/17 12:10 [id number] Inhibit Titer (()) 05/24/17 12:10 Sodium 136 mmol/l (132-148) 05/30/17 06:00 Potassium 3.9 MMOL/L (3.6-5.0) 05/30/17 06:00 Chloride 103 mmol/L (98-107) 05/30/17 06:00 Carbon Dioxide 22 mmol/L (22-30) 05/30/17 06:00 Anion Gap 15 (10-20) 05/30/17 06:00 BUN 54 mg/dl (9-20) H 05/30/17 06:00 Creatinine 3.0 mg/dL (0.8-1.5) H 05/30/17 06:00 Est GFR ( Amer) 25 05/30/17 06:00 Est GFR (Non-Af Amer) 21 05/30/17 06:00 POC Glucose (mg/dL) 249 mg/dL (65-110) H 05/30/17 05:40 Random Glucose 225 mg/dL (75-110) H 05/30/17 06:00 Hemoglobin A1c 8.2 % (4.2-6.5) H 05/24/17 05:30 Lactic Acid 3.9 MMOL/L (0.7-2.1) H 05/24/17 05:30 Uric Acid 5.4 mg/Dl (3.5-8.5) 05/30/17 06:00 Calcium 5.9 mg/dL (8.4-10.2) L* 05/30/17 06:00 Phosphorus 3.9 mg/dl (2.5-4.5) 05/29/17 06:05 Iron 29 ug/dL (49-181) L 05/24/17 13:30 TIBC 273 ug/dL (250-450) 05/24/17 13:30 % Saturation 11 % (20-55) L 05/24/17 13:30 Ferritin 129.0 ng/mL 05/24/17 13:30 Total Bilirubin 0.7 mg/dl (0.2-1.3) 05/26/17 04:30 Direct Bilirubin 0.5 mg/ml (0.0-0.4) H 05/24/17 10:00 AST 53 U/L (17-59) 05/26/17 04:30 ALT 53 U/L (21-72) 05/26/17 04:30 Alkaline Phosphatase 90 U/L (38-126) 05/26/17 04:30 Lactate Dehydrogenase 402 U/L (313-618) 05/24/17 09:00 Total Protein 5.8 G/DL (6.3-8.2) L 05/26/17 04:30 Total Protein (PEP) 6.1 g/dL (6.1-8.1) 05/23/17 21:20 Albumin 3.1 g/dL (3.5-5.0) L 05/26/17 04:30 Albumin (PEP) 3.4 g/dL (3.8-4.8) L 05/23/17 21:20 Globulin 2.8 gm/dL (2.2-3.9) 05/26/17 04:30 Albumin/Globulin Ratio 1.1 (1.0-2.1) 05/26/17 04:30 Fleyp-3-Xftewgtvh 0.3 g/dL (0.2-0.3) 05/23/17 21:20 Wegyv-0-Eumhffryf 0.7 g/dL (0.5-0.9) 05/23/17 21:20 Bzeb-4-Gnxmhdlr 0.4 g/dL (0.4-0.6) 05/23/17 21:20 Izsv-7-Zzrhiyrr 0.4 g/dL (0.2-0.5) 05/23/17 21:20 Gamma Globulins 0.9 g/dL (0.8-1.7) 05/23/17 21:20 Abnorm Protein Band 1 TEST NOT PERFORMED 05/23/17 21:20 Abnorm Protein Band 2 TEST NOT PERFORMED 05/23/17 21:20 Abnorm Protein Band 3 TEST NOT PERFORMED 05/23/17 21:20 UF Heparin Interp Negative (Negative) 05/25/17 04:35 Vitamin B12 332 pg/mL (239-931) 05/25/17 04:35 Folate 6.6 ng/mL 05/25/17 04:35 TSH 3rd Generation 0.96 mIU/ML (0.46-4.68) 05/25/17 04:35 PTH Intact Whole Molec 147 pg/mL (14-64) H 05/23/17 21:20 Cortisol AM Sample 19.4 ug/dL (4.46-22.7) 05/25/17 04:35 ACTH 12 pg/mL (6-50) 05/25/17 04:35 Urine Color Yellow (YELLOW) 05/24/17 06:30 Urine Clarity Cloudy (Clear) 05/24/17 06:30 Urine pH 6.0 (5.0-8.0) 05/24/17 06:30 Ur Specific [place] 1.013 (1.003-1.030) 05/24/17 06:30 Urine Protein >=500 mg/dL (NEGATIVE) 05/24/17 06:30 Urine Glucose (UA) 50 mg/dL (Normal) 05/24/17 06:30 Urine Ketones Negative mg/dL (NEGATIVE) 05/24/17 06:30 Urine Blood Moderate (NEGATIVE) 05/24/17 06:30 Urine Nitrate Negative (NEGATIVE) 05/24/17 06:30 Urine Bilirubin Negative (NEGATIVE) 05/24/17 06:30 Urine Urobilinogen 0.2-1.0 mg/dL (0.2-1.0) 05/24/17 06:30 Ur Leukocyte Esterase Large Nolberto/uL (Negative) 05/24/17 06:30 Urine RBC (Auto) 9 /hpf (0-3) H 05/24/17 06:30 Urine Microscopic WBC 11 /hpf (0-5) H 05/24/17 06:30 Ur Squamous Epith Cells 1 /hpf (0-5) 05/24/17 06:30 Urine Bacteria Rare (<OCC) 05/24/17 06:30 Urine Osmolality 596 mosm/kg (300-1000) 05/28/17 12:30 Ur Random Sodium 118 meq/L 05/28/17 12:30 Ur Random Potassium 16.0 mmol/L 05/28/17 12:30 Ur Random Glucose 370 mg/dL 05/28/17 12:30 ALEXANDRE & SPEP Interp See note 05/23/17 21:20 Serum Immunofixation Not detected (Not Detected) 05/25/17 04:35 Heparin-induced Plt Ab Negative (Negative) 05/24/17 12:10 DANDY UFH Low Dose 0.1 0 % Release 05/25/17 04:35 DANDY UFH Low Dose 0.5 0 % Release 05/25/17 04:35 DANDY UFH High Dose 100 0 % Release 05/25/17 04:35 Ai/Lambda Light Chain (()) 05/25/17 04:35 Free Ai Light Chains 130.2 mg/L (3.3-19.4) H 05/25/17 04:35 Free Lambda Light Chain 81.7 mg/L (5.7-26.3) H 05/25/17 04:35 Free Ai/Lambda Ratio 1.59 (0.26-1.65) 05/25/17 04:35 C. difficile Ag & Toxin Negative (NEGATIVE) 05/25/17 17:35 Hep Bs Antigen Negative (NEGATIVE) 05/23/17 21:20 Hep Bs Antibody Negative (NEGATIVE) 05/23/17 21:20 Hep B Core IgM Ab Negative (NEGATIVE) 05/23/17 21:20 Hepatitis C Antibody Negative (NEGATIVE) 05/23/17 21:20 HIV 1&2 Antibody Screen Negative (NEGATIVE) 05/25/17 04:35 Blood Type B POSITIVE 05/24/17 15:10 Blood Type Confirm B POSITIVE 05/24/17 15:34 Antibody Screen Negative 05/24/17 15:10 Crossmatch See Detail 05/24/17 15:10 BBK History Checked No verified bt 05/24/17 15:10 - Hospital Course Hospital Course: 71 yo male with history of DM2, HTN, CKD and Gout came in because of back pain and leg pain for 3 days accompanied by generalized weakness and uncontrollable tremors. Patient states that he fell at home coming out of shower because of weakness. Denied SOB, chest pain, fever or chills. In ER found to have BUN/Cr 155/11.9 Hyperkalemic K 7.7 acidotic with HCO3 9 and lactic acid 4.3 Patient admitted in ICU with MADONNA on CKD, metabolic acidosis, hyperkalemia . He was started on HD. At present his kidney function improving with Cr trending down to 3, diuresing well 3700 ml last 24 hours. Hemodilysis was stopped and plan for pt to be d/c home. 1. Acute renal failure (ARF) on CKD Acute Patient with BUN/Cr 155/11.6 on admission and HCO3 9 and K 7.7 , Anuric was admitted to ICU Treated with NaHCO3 drip and D50 insulin , kayexalate Nephro consulted Emergent Hemodialysis started At present renal function is improving Crea now 3 , with good urine output Hemodialysis d/c since 05/27 HD catheter removed by Surgery 2.Metabolic acidosis resolved most likely secondary to renal failure corrected with NaHCO3 drip and HD now off HD 3. Lactic acidosis most likely secondary to metformin use in setting of CKD no signs of sepsis Discontinued metformin 4. Hyperkalemia secondary to renal failure renal diet 5.DM type II with Hypoglycemia and hyperglycemia initially Started on D10 NS bec of hypoglycemia, now with elevated glucose most likley secondary to steroid use diabetic diet continue accuchecks with coverage Endo consulted on Levemir 14 SQ HS and and BID 75/25 insulin as rec by Dr Mccollum DM teaching done by RN - accucheck , insulin injection 6. Thrombocytopenia unclear etiology unlikely microangiopathy as per Hematology Platelet count dropped from 137 K -- to as low as 40 , today 102 K no sign of bleeding hematology consulted Received IV Solumedrol - will d/c home on tapering done of Prednisone 7. Anemia most likely patient has some degree of chronic anemia secondary to CKD Hematology consulted Transfused 2 units PRBC Epogen and Iron sucrose started Hgb10 8. HTN (hypertension) Chronic controlled without meds 9. Gout stable uric acid level = 16 now down to 8 10. Knee Pain hx of recent fall at home Left knee xray and bilat hip xray: no fracture , degenerative joint dis Lidoderm patch to left knee 11.DVT prophylaxis SCD no anticoagulation due to low Platelet 12. Hypocalcemia sec to Renal Failure - Calcium Gluconate IV given Dispo: plan for d/c home.denied by insurance for [facility]. For home health care services Discharge Exam - Head Exam Head Exam: ATRAUMATIC, NORMAL INSPECTION, NORMOCEPHALIC - Eye Exam Eye Exam: EOMI, Normal appearance Pupil Exam: NORMAL ACCOMODATION - ENT Exam ENT Exam: Mucous Membranes Moist, Normal External Ear Exam - Neck Exam Neck exam: Full Rom - Respiratory Exam Respiratory Exam: NORMAL BREATHING PATTERN. absent: Wheezes, Respiratory Distress - Cardiovascular Exam Cardiovascular Exam: REGULAR RHYTHM, +S1, +S2 - GI/Abdominal Exam GI & Abdominal Exam: Normal Bowel Sounds, Soft. absent: Tenderness - Extremities Exam Extremities exam: normal capillary refill, pedal pulses present - Back Exam Back exam: FULL ROM. absent: CVA tenderness (L), CVA tenderness (R) - Neurological Exam Neurological exam: Alert, CN II-XII Intact, Oriented x3, Reflexes Normal - Psychiatric Exam Psychiatric exam: Normal Affect, Normal Mood - Skin Skin Exam: Dry, Normal Color, Warm Discharge Plan - Discharge Medications Prescriptions: Allopurinol [Zyloprim] 100 mg PO DAILY #30 tab Insulin Detemir [Levemir] 14 units SC HS #3 vial Insulin Lispro Mix 75/25 [HumaLog MIX 75/25] 8 units SC ACD #2 vial Insulin Lispro Mix 75/25 [HumaLog MIX 75/25] 12 units SC ACB #2 vial Lidocaine 5% [Lidoderm] 1 ea TD DAILY #30 patch Pantoprazole [Protonix EC Tab] 40 mg PO DAILY #30 ect predniSONE [predniSONE Tab] 5 mg PO ASDIR #20 tab Sevelamer Carbonate [Renvela] 1.6 gm PO TIDWM #30 packet Syringe and Needle,Insulin,1Ml [Insulin Syringe] 1 each MC ASDIR #2 pkg Vitamin B Complex/Vit C/Folic [Nephro-Juancarlos] 1 tab PO DAILY #30 tab - Follow Up Plan Condition: GOOD Disposition: HOME/ ROUTINE Instructions: Diabetic Hypoglycemia (DC) Additional Instructions: ff up with Dr Schwartz in 1 wk ff up with Dr Irineo contreras Home RN for diabetic teaching Referrals: Naveen Schwartz MD [Staff Provider] - Dewey Cabello MD [Staff Provider] -
--- NOTE | 2017-05-30 10:32 | CP.PCM.PN ---
Subjective - Date & Time of Evaluation Date of Evaluation: 05/30/17 Time of Evaluation: 10:30 - Subjective Subjective: pt is seen and examined, follow up consult is dictated #[id number] 1. MADONNA 2. hypocalcemia d/young rt fv cath by surgery supplement Ca calcium gluconate 2 amps in 100 ml ns 0.9 % Objective - Vital Signs/Intake and Output Vital Signs (last 24 hours): Temp Pulse Resp BP Pulse Ox 98.0 F 78 20 137/71 95 05/30/17 07:30 05/30/17 07:30 05/30/17 07:30 05/30/17 07:30 05/30/17 07:30 - Medications Medications: Current Medications Allopurinol (Zyloprim) 100 mg PO DAILY [facility] Last Admin: 05/30/17 09:01 Dose: 100 mg Doxercalciferol (Hectorol) 2 mcg IV [facility] Stop: 06/01/17 23:59 Last Admin: 05/29/17 13:12 Dose: Not Given Epoetin Junior (Procrit) 10,000 unit IV [facility] Stop: 06/01/17 23:59 Last Admin: 05/29/17 13:13 Dose: Not Given Sodium Chloride (Sodium Chloride 0.45%) 1,000 mls @ 100 mls/hr IV .Q10H [facility] Stop: 05/30/17 21:11 Last Admin: 05/30/17 09:00 Dose: Not Given Insulin Detemir (Levemir) 14 units SC HS [facility] Last Admin: 05/29/17 22:08 Dose: 14 units Insulin Human Regular (Humulin R) 0 units SC ACHS [facility] PRN Reason: Protocol Last Admin: 05/30/17 07:09 Dose: Not Given Insulin Lispro Protam/Lispro Human (Humalog Mix 75/25) 12 units SC ACB [facility] Last Admin: 05/30/17 09:02 Dose: 12 units Insulin Lispro Protam/Lispro Human (Humalog Mix 75/25) 8 units SC ACD [facility] Lidocaine (Lidoderm) 1 ea TD DAILY [facility] Last Admin: 05/30/17 09:01 Dose: 1 ea Pantoprazole Sodium (Protonix Ec Tab) 40 mg PO DAILY [facility] Last Admin: 05/30/17 09:00 Dose: 40 mg Prednisone (Prednisone Tab) 20 mg PO DAILY [facility] Last Admin: 05/30/17 09:01 Dose: 20 mg Sevelamer Carbonate (Renvela) 1.6 gm PO TIDWM ROSS Last Admin: 05/30/17 09:01 Dose: 1.6 gm Vitamin B Complex/Vit C/Folic Acid (Nephro-Juancarlos) 1 tab PO DAILY [facility] Last Admin: 05/30/17 09:00 Dose: 1 tab - Labs Labs: 05/30/17 04:00 05/30/17 06:00 PT 11.7 Seconds (9.8-13.1) 05/24/17 13:30 INR 1.1 (0.9-1.2) 05/24/17 13:30 APTT 27.6 Seconds (25.6-37.1) 05/24/17 13:30
--- NOTE | 2017-05-30 18:56 | CP.PCM.CON ---
History of Present Illness - History of Present Illness History of Present Illness: General Surgery Consult for Dr. Campbell Consulted for: right femoral dialysis catheter removal Patient is a 71M with acute kidney injury requiring temporary dialysis. A right femoral dialysis catheter was placed on 05/23/17. Patient was to be discharged to home today and no longer needed a dialysis catheter so it was removed. Patient denies any pain, fevers, chills, chest pain, SOB, or any other symptoms. Review of Systems - Review of Systems All systems: reviewed and no additional remarkable complaints except Past Patient History - Infectious Disease Hx of Infectious Diseases: None - Tetanus Immunizations Tetanus Immunization: Unknown - Past Medical History & Family History Past Medical History?: Yes - Past Social History Smoking Status: Never Smoked Alcohol: None (quit heavy drinking of alcohol 5 yrs ago) Drugs: Denies Home Situation {Lives}: With Family - CARDIAC Hx Hypercholesterolemia: Yes Hx Hypertension: Yes - PULMONARY Hx Respiratory Disorders: No - NEUROLOGICAL Hx Neurological Disorder: No - HEENT Hx HEENT Problems: Yes Hx Cataracts: Yes - RENAL Hx Chronic Kidney Disease: No - ENDOCRINE/METABOLIC Hx Diabetes Mellitus Type 2: Yes - HEMATOLOGICAL/ONCOLOGICAL Hx Blood Disorders: No Hx Blood Transfusions: No - INTEGUMENTARY Hx Dermatological Problems: No - MUSCULOSKELETAL/RHEUMATOLOGICAL Hx Gout: Yes - GASTROINTESTINAL Hx Gastrointestinal Disorders: No - GENITOURINARY/GYNECOLOGICAL Hx Genitourinary Disorders: No - PSYCHIATRIC Hx Psychophysiologic Disorder: No Hx Substance Use: No - SURGICAL HISTORY Hx Surgeries: No - ANESTHESIA Hx Anesthesia: No Meds Home Medications: Home Medication List Medication Instructions Recorded Confirmed Type Allopurinol [Zyloprim] 100 mg PO DAILY #30 tab 05/30/17 Rx Doxercalciferol [Hectorol] 2 mcg IV MWF #0 vial 05/30/17 Rx Epoetin Junior [Procrit] 10,000 unit IV MWF ml 05/30/17 Rx Insulin Detemir [Levemir] 14 units SC HS #3 vial 05/30/17 Rx Insulin Lispro Mix 75/25 [HumaLog 8 units SC ACD #2 vial 05/30/17 Rx MIX 75/25] Insulin Lispro Mix 75/25 [HumaLog 12 units SC ACB #2 vial 05/30/17 Rx MIX 75/25] Lidocaine 5% [Lidoderm] 1 ea TD DAILY #30 patch 05/30/17 Rx Pantoprazole [Protonix EC Tab] 40 mg PO DAILY #30 ect 05/30/17 Rx Sevelamer Carbonate [Renvela] 1.6 gm PO TIDWM #30 packet 05/30/17 Rx Syringe and Needle,Insulin,1Ml 1 each MC ASDIR #2 pkg 05/30/17 Rx [Insulin Syringe] Vitamin B Complex/Vit C/Folic 1 tab PO DAILY #30 tab 05/30/17 Rx [Nephro-Juancarlos] predniSONE [predniSONE Tab] 5 mg PO ASDIR #20 tab 05/30/17 Rx Allergies/Adverse Reactions: Allergies Allergy/AdvReac Type Severity Reaction Status Date / Time No Known Allergies Allergy Verified 09/22/15 19:52 Physical Exam - Constitutional Appears: Well, Non-toxic, No Acute Distress - Head Exam Head Exam: ATRAUMATIC, NORMOCEPHALIC - Eye Exam Eye Exam: Normal appearance. absent: Conjunctival injection, Scleral icterus - ENT Exam ENT Exam: Mucous Membranes Moist, Normal Oropharynx - Respiratory Exam Respiratory Exam: NORMAL BREATHING PATTERN. absent: Accessory Muscle Use, Respiratory Distress - Cardiovascular Exam Cardiovascular Exam: RRR - GI/Abdominal Exam GI & Abdominal Exam: Soft. absent: Distended, Tenderness - Extremities Exam Extremities exam: Negative for: calf tenderness, pedal edema, tenderness Additional comments: hemodialysis catheter in right femoral artery without any surrounding erythema, drainage, or active bleeding - Neurological Exam Neurological exam: Alert, Oriented x3 - Psychiatric Exam Psychiatric exam: Normal Affect, Normal Mood - Skin Skin Exam: Dry, Normal Color, Warm Results - Vital Signs Recent Vital Signs: Last Vital Signs Temp 98.0 F 05/30/17 07:30 Pulse 78 05/30/17 07:30 Resp 20 05/30/17 07:30 BP 137/71 05/30/17 07:30 Pulse Ox 95 05/30/17 07:30 - Labs Result Diagrams: 05/30/17 04:00 05/30/17 06:00 Labs: Laboratory Results - last 24 hr 05/29/17 05/30/17 05/30/17 22:05 04:00 05:40 WBC 8.8 RBC 3.13 L Hgb 9.9 L Hct 29.8 L MCV 95.2 H MCH 31.5 H MCHC 33.1 RDW 16.3 H Plt Count 102 L MPV 10.7 Neut % (Auto) 82.0 H Lymph % (Auto) 13.4 L [place] % (Auto) 4.5 Eos % (Auto) 0.0 Baso % (Auto) 0.1 Neut # 7.2 H Lymph # 1.2 [place] # 0.4 Eos # 0.0 Baso # 0.0 Sodium Potassium Chloride Carbon Dioxide Anion Gap BUN Creatinine Est GFR ( Amer) Est GFR (Non-Af Amer) POC Glucose (mg/dL) 314 H 249 H Random Glucose Uric Acid Calcium Albumin 05/30/17 05/30/17 05/30/17 06:00 10:30 10:56 WBC RBC Hgb Hct MCV MCH MCHC RDW Plt Count MPV Neut % (Auto) Lymph % (Auto) [place] % (Auto) Eos % (Auto) Baso % (Auto) Neut # Lymph # [place] # Eos # Baso # Sodium 136 Potassium 3.9 Chloride 103 Carbon Dioxide 22 Anion Gap 15 BUN 54 H Creatinine 3.0 H Est GFR ( Amer) 25 Est GFR (Non-Af Amer) 21 POC Glucose (mg/dL) 326 H Random Glucose 225 H Uric Acid 5.4 Calcium 5.9 L* Albumin 3.3 L Assessment & Plan - Assessment and Plan (Free Text) Assessment: 71M with MADONNA s/p femoral artery dialysis catheter placement Plan: -removed right femoral artery catheter without bleeding, hematoma, or any other complication -Please reach out to the surgical team for any further questions or concerns Mary Shepard, PGY2
--- NOTE | 2017-05-30 20:32 | PN ---
DATE: ENDO FOLLOWUP NOTE LOCATION: Room 665. This is a 71-year-old male with recent uncontrolled type 2 insulin-requiring diabetes, now being followed closely for metabolic management. He also has a recent end-stage renal disease on dialysis dependence with ongoing hemodialysis as noted. His glycemic levels are fluctuating, but improved and the latest glucose values have ranged from 249-289 mg/dL. The latest chemistry showed a BUN of 54, sodium 136, potassium 3.9, chloride 103, CO2 of 22, glucose 225 and creatinine 3.0. So, at this time, we will continue the same premixed insulin regimen as his oral intake is quite variable and we will titrate accordingly to optimize metabolic control. We will continue the Humalog 75/25 at a higher dose of 20 units a.c. breakfast and 14 units a.c. dinner as ordered. We will continue the Levemir given as 14 units subcu at bedtime daily as given. We will titrate incrementally as indicated to optimize metabolic control. He will follow with his medical doctor for outpatient medical and diabetic management. Roseanne Mccollum MD
--- NOTE | 2017-05-31 00:16 | PN ---
FOLLOWUP RENAL CONSULTATION LOCATION: The patient is located in room 665, bed #2. REQUESTED BY: Rohan Culver MD REASON FOR FOLLOWUP: Acute renal failure, acute gouty arthritis, hypocalcemia. SUBJECTIVE: Mr. Malvin Stallworth is a 71-year-old elderly male with history of longstanding hypertension, diabetes, was admitted with chief complaints of feeling weak, tired and nausea, vomiting, abdominal pain and found to have elevated BUN and creatinine more than 150/11, hyperkalemia, metabolic acidosis and lactic acidosis. The patient was taking lisinopril and metformin at home. The patient was started on emergency hemodialysis on admission. The patient is feeling much better, not in acute distress. Now, the patient is in a recovery stage of ATN and the patient has a good urine output. Hemodialysis was on hold yesterday and his serum creatinine improving nicely. The patient does complaints of pain in both knee joint. The patient is being treated with acute gouty arthritis with Solu-Medrol and prednisone, starting today prednisone 20 mg daily, tapering of 5 mg every 2 days. The patient is not in acute distress. PHYSICAL EXAMINATION GENERAL: Mr. Malvin Stallworth is a 71-year-old elderly male, moderately build, not in acute distress. VITAL SIGNS: The vital signs this morning as follows: Blood pressure 137/71, pulse 78, respirations 20, temperature 98, saturation 95%. Height is 5 feet 6 inches and the weight is 175 pounds. HEENT: Pupils normal and reactive to light and accommodation. Conjunctivae pink. Sclerae anicteric. Tongue is moist. Trachea is midline. LUNGS: Symmetric on both sides. Bilateral breath sounds present. Clear on auscultation. CARDIOVASCULAR SYSTEM: Corinne at the fifth intercostal space, half inch middle, midclavicular line. S1 and S2 audible. No murmur or gallop. ABDOMEN: Normal in appearance. Soft and tympanic. No guarding. No rigidity. No hepatosplenomegaly. CENTRAL NERVOUS SYSTEM: The patient is alert, awake, and oriented x3. Nonfocal neuro examination. Cranial nerves II through XII grossly intact. Sensory and motor system is within normal limits. EXTREMITIES: No cyanosis, no clubbing, no edema. CURRENT MEDICATIONS: Include as follows: Prednisone 20 mg tablet daily for 2 days and then 3 tablets daily for 2 days, then 2 tablets daily for 2 days and one tablet daily for 2 days and then discontinue, Nephro-Juancarlos 1 tablet daily and Renvela 1.6 g p.o. t.i.d., Protonix 40 mg daily and lidocaine patch and insulin 75/25 Humalog mix, 12 units subcutaneous at breakfast and 8 units subcutaneous a.c. at dinner and Levemir 14 units subcutaneous at bedtime and Procrit 10, 000 units 3 times a week, Thursday, Thursday, and Thursday, post-dialysis and Zemplar 2 mcg Thursday, Thursday and Thursday 3 times a week and allopurinol 100 mg p.o. daily. LABORATORY DATA: Include as follows: As of 05/30/2017, WBC 8.8, hemoglobin 9.9, hematocrit is 29.8, platelets 102 and sodium 136, potassium 3.9, chloride 103, CO2 of 22, BUN 54, creatinine 3, glucose 225, calcium is 5.9, albumin is 3.3. IMPRESSION: In summary, Mr. Malvin Stallworth is a 71-year-old elderly male with history of hypertension, diabetes with acute renal failure, acute gouty arthritis, anemia, thrombocytopenia, status post hyperkalemia, metabolic acidosis. 1. Acute renal failure, most likely secondary to acute tubular necrosis , secondary to metformin and lisinopril. The patient is off lisinopril and metformin and renal function is gradually improving. The patient is off hemodialysis and right femoral catheter was removed by a surgery resident this morning. 2. Hypocalcemia secondary to renal failure. We will give calcium gluconate 2 amps IV piggyback x1 dose today. 3. Anemia secondary to renal failure with H and H improving. 4. Thrombocytopenia, etiology is not clear. His platelets are gradually improving. 5. Acute gouty arthritis, continue allopurinol, continue prednisone with the tapering dose and the patient is being discharged home and followup with PMD and the patient can be followed in the office in one week. Thank you for allowing me to participate in your patient's care. Discussed with Dr. Lucina Frank in rounds this morning. Naveen Schwartz MD
--- NOTE | 2017-06-01 08:53 | CON ---
FOLLOWUP RENAL CONSULTATION LOCATION: The patient is located in room 665, bed 2. SUBJECTIVE: The patient is a 71-year-old elderly male with past medical history significant for longstanding hypertension and diabetes with a baseline creatinine of 1 to 1.2. He was admitted with not feeling well, weakness and lower abdominal discomfort and nausea, vomiting and the patient was found to have an increased BUN and creatinine, metabolic acidosis and hyperkalemia and oliguria. The patient was started on hemodialysis. The patient is feeling much better, not in any acute distress. Denies any headache or dizziness. Denies any chest pain, palpitations. The patient is out of bed to chair. The patient claims he has slight dizziness when he tried to this morning. PHYSICAL EXAMINATION: GENERAL: The patient is a 71-year-old elderly male moderately built, moderately nourished, not in acute distress. VITAL SIGNS: As follows this morning, blood pressure 126/69, pulse 85, respirations 15, temperature 98.1, saturation 93%. HEENT: Pupils normal, reactive to light and accommodation. Conjunctivae pink. Sclera anicteric. Tongue is moist. Trachea is midline. LUNGS: Symmetry on both sides. Bilateral breath sounds present. Clear on auscultation. CARDIOPULMONARY: Junction at the fifth intercostal space and midclavicular line. S1 and S2 audible. No murmur. No gallop. ABDOMEN: Normal in appearance, soft and tympanic. CENTRAL NERVOUS SYSTEM: The patient is alert, awake and oriented x3. Nonfocal on examination. Cranial nerves II through XII grossly intact. Sensory and motor system is within normal limits. EXTREMITIES: No cyanosis. No clubbing. No edema. As of 05/26/2017, . As of 05/27/2017, . LABORATORY DATA: Includes as follows as of 05/27/2017, WBC platelets 94. Sodium is 139, potassium 3.0, chloride 90, BUN . Other reports . Urine sodium is positive . Urine potassium is 14. Urine glucose is 370 and urine urea is pending. ASSESSMENT AND PLAN: In summary, the patient is a 71-year-old elderly male with history of hypertension, diabetes, was admitted with severe weakness and tired, and nausea, vomiting, and abdominal pain and decreased urine output, found to have a BUN and creatinine more than 150/11 and hyperkalemia, metabolic acidosis and also lactic acidosis and now with elevated hemoglobin and hematocrit. 1. Acute renal failure, most likely secondary to combination of metformin and lisinopril both since admission. 2. Polyuria most likely secondary to osmotic diuresis secondary to both the electrolytes and nonelectrolytes including glucose. 3. Anemia. 4. Thrombocytopenia, platelets are slowly improving. PLAN: 1. Discontinue Abdullahi catheter. Continue monitor sugar to try to keep the sugars below 180 and given IV fluids half normal saline at 100 mL an hour. 2. Hypertension. Continue to monitor electrolytes and also we hold hemodialysis tomorrow. 3. History of gouty arthritis. The patient is feeling much better. Continue allopurinol. Continue Procrit. Continue Renvela and we will also add Nephro-Juancarlos 1 tablet daily. We will follow with you. Thank you for allowing me to participate in your patient's care. Discussed the case with Dr. is covering the patient today Naveen Schwartz MD
== END 2017-05-30 15:33 | disposition home health service (06) | DRG 683 ==
LOC: H.ER 15:24 → H.ERHOLD 17:36 → OBSVTOIN 17:36 → H.ICU/CCU 18:59 → H.MEDSURG1 05-28 18:43
PROC: 5A1D60Z (ICD-10-PCS; principal; 2017-05-23)
PROC: 06HY33Z Insertion of Infusion Device into Lower Vein, Percutaneous Approach (ICD-10-PCS; 2017-05-23)
PROC: B54BZZA Ultrasonography of Right Lower Extremity Veins, Guidance (ICD-10-PCS; 2017-05-23)
PROC: 30233N1 Transfusion of Nonautologous Red Blood Cells into Peripheral Vein, Percutaneous Approach (ICD-10-PCS; 2017-05-24)
PROC: 06PY33Z Removal of Infusion Device from Lower Vein, Percutaneous Approach (ICD-10-PCS; 2017-05-30)
DX: N17.0 Acute kidney failure with tubular necrosis (principal); E87.2 Acidosis; I12.0 Hypertensive chronic kidney disease with stage 5 chronic kidney disease or end stage renal disease; T46.4X5A Adverse effect of angiotensin-converting-enzyme inhibitors, initial encounter; T38.3X5A Adverse effect of insulin and oral hypoglycemic [antidiabetic] drugs, initial encounter; E11.22 Type 2 diabetes mellitus with diabetic chronic kidney disease; E11.649 Type 2 diabetes mellitus with hypoglycemia without coma; N18.6 End stage renal disease; D69.6 Thrombocytopenia, unspecified; E87.5 Hyperkalemia; E83.51 Hypocalcemia; M10.062 Idiopathic gout, left knee; M10.061 Idiopathic gout, right knee; D63.1 Anemia in chronic kidney disease; E78.5 Hyperlipidemia, unspecified; M54.5 Low back pain; E11.65 Type 2 diabetes mellitus with hyperglycemia; N25.81 Secondary hyperparathyroidism of renal origin; D50.9 Iron deficiency anemia, unspecified; Z79.84 Long term (current) use of oral hypoglycemic drugs